=== PATIENT | male | born 1965 | race Caucasian/White ===

== ENCOUNTER 2018-07-21 18:38 | Inpatient (IN) | payer MEDICARE, SELFPAY ==
[2018-07-21] VITALS (14 sets, daily range): BP systolic 78–154; BP diastolic 51–92; PULSE 104–174; RESP 15–24; TEMP 37.3–39.5; O2SAT 90–99; BMI 27.4; BMI 26.4; BMI 26.5
--- NOTE | 2018-07-21 19:09 | RAD_ITS ---
STUDY: X-RAY CHEST REASON FOR EXAM: Male, 53 years old. Sepsis. Fever. TECHNIQUE: Frontal view of the chest COMPARISON: 02/03/2017 FINDINGS: The lungs are clear. There are no pleural effusions. There is no pneumothorax. The heart is normal in size. There are multiple distended loops of bowel in the upper abdomen. There is air superimposed beneath the right hemidiaphragm. It is more likely that this is within a distended bowel lumen rather than free air. However, free air cannot be excluded and further evaluation with CT is recommended. RAD/Chest 1 View (Portable) IMPRESSION: Clear lungs. Multiple distended loops of bowel in the upper abdomen with air superimposed beneath the right hemidiaphragm. It is more likely that this is within a distended bowel lumen rather than free air. The study dated 02/03/2017 had a similar appearance. However, if there is concern for free air, further evaluation with an abdominal CT is recommended. Electronically Signed: Manny Rosas, at 20:32 EST Tel , Service support ,
--- NOTE | 2018-07-21 19:09 | EKG12_ITS ---
Test Reason : GEN ILLNESS Blood Pressure : / mmHG Vent. Rate : 137 BPM Atrial Rate : 137 BPM P-R Int : 138 ms QRS Dur : 076 ms QT Int : 276 ms P-R-T Axes : 029 043 -01 degrees QTc Int : 416 ms Sinus tachycardia Otherwise normal ECG Confirmed by MARLON ONEAL, DEBRA ([id number]), web content editor JEMIMA GLEZ ([id number]) on 07/24/2018 2:32:41 PM Referred By: WENDY Confirmed By:DEBRA MASON MD
[2018-07-21] MEDS: 0.9% Normal Saline 1,000 ML IV.SOLN. 2400 ML IV (19:46)
[2018-07-21] MEDS: Ceftriaxone 1 GM/50 ML BAG IV (19:47)
[2018-07-21 20:04] LABS: International Normalized Ratio 1.1; Partial Thromboplast Time 28.2 Seconds (24.1-36.2); Prothrombin Time (Protime)PT. 14.3 SECONDS (11.7-14.9)
[2018-07-21 20:07] LABS: ALB/GLOB Ratio 0.9 RATIO (0.9-2.4); AST(SGOT) 14 U/L (15-37); Absolute Neutrophil Count 15.4 X10^3/uL (2.0-7.7); Alanine Aminotransfer ALT/SGPT 20 U/L (16-61); Albumin, Serum 3.5 g/dL (3.2-5.0); Alkaline Phosphatase 89 U/L (45-117); Anion Gap 10 (5-15); BUN 42 mg/dL (7-18); BUN/Creat Ratio 15.4 RATIO (10-20); Basophil# 0.01 X10^3/uL; Basophil% 0.1 % (0-1); Calcium,Total 9.5 mg/dL (8.5-10.1); Chloride 106 mmol/L (98-107); Creatinine, Serum 2.72 mg/dL (0.70-1.30); EST Glomerular Filtration Rate 26 mL/min (>60); Est Glom Filt Rate - Afr Amer 32 mL/min (>60); Estimated Creatinine Clearance 28.99 ml/min; Globulin 3.9 g/dL (2.2-4.2); Glucose 76 mg/dL (74-106); Hematocrit 43.5 % (40-54); Hemoglobin 14.4 g/dl (13.0-16.5); Lymphocyte % 7.3 % (19-41); Mean Corp Hgb Conc 33.1 g/gl (32-36); Mean Corpuscular Hgb 29.6 pg (27.0-32.0); Mean Corpuscular Volume 89.5 fL (80-94); Mean Platelet Vol. 10.8 fl (6.2-12.0); Monocyte# 1.07 X10^3/uL; Neutrophil # 15.44 X10^3/uL (2.7-7.7); Neutrophil % 86.5 % (47-70); Platelet Count 228 K/mm3 (150-450); Potassium 4.1 mmol/L (3.5-5.1); Protein, Total 7.4 g/dL (6.4-8.2); RBC Distribution Width CV 13.3 % (11.6-14.6); RBC Distribution Width SD 43.3 fl (35.1-43.9); Red Blood Count 4.86 M/mm3 (4.6-6.2); Sodium Level 139 mmol/L (136-145); White Blood Count 17.8 K/mm3 (4.4-11.0)
[2018-07-21 20:09] LABS: Differential Indicated SCAN CRITERIA MET; POSITIVE COUNT NO; POSITIVE DIFFERENTIAL NO; POSITIVE MORPHOLOGY YES
[2018-07-21 20:23] LABS: Lactic Acid 2.7 mmol/L (0.4-2.0)
[2018-07-21 20:26] LABS: Atypical Lymphocyte RARE %; Differential Comment SCANNED
[2018-07-21 20:51] LABS: Mucous, Urine 0 SEEN /hpf (<or=2+); Squamous Epithelial Cells - UA 0 SEEN /hpf (0-5)
[2018-07-21 20:59] LABS: Color, Urine Yellow (Yellow); Glucose, Dipstick Normal (Normal); Ketone-Dipstick Negative (Negative); Leukocyte Esterase-Dipstick 500 /ul (Negative); Nitrite-Dipstick Negative (Negative); Occult Blood-Urine 150 /ul (Negative); Protein-Dipstick 100 mg/dl (Negative); Specific Gravity, Urine 1.015 (1.002-1.030); Urine Bilirubin Dipstick Negative (Negative); Urine Clarity Cloudy (Clear); Urine Urobilinogen Normal (Normal)
[2018-07-21 21:07] LABS: Bacteria 2+ /hpf (None Seen); Red Blood Cells-Urine 0-5 SEEN /hpf (0-5); White Blood Cells 0-5 SEEN /hpf (0-5)
--- NOTE | 2018-07-21 21:08 | ED.VISSUMM ---
- ER Visit Summary Date of Service: 07/21/18 Chief Complaint: Patient presents from nursing facility because of low blood pressure fever and not doing well History of Present Illness: The patient is a 53 M who has history of neurogenic bladder, MS, suprapubic catheter, sepsis from recurrent urinary tract infection who was brought to the emergency from [facility] because of fever and low blood pressure. When asked questions his only concern is that the TV does not work. When asked why he is here his response was the TV does not work . When asked if he has chest pain or shortness of breath his response was the TV does not work . Patient is not reliable. Physical Examination: Patient is hypotensive with a pressure of 80/51 heart rate of 149 respiration 23 temperature of 99.5. Pulse ox 92% on room air. He smells of urine. HEENT exam is remarkable for poor dentition. Heart is rapid and regular. Lungs are clear to auscultation. Abdomen is soft nontender. He has no skin lesions upper or lower extremities. There is no evidence of decubiti. He moves all his extremities. Test Results: White count 17.8 thousand 86 segs no bands. BUN and creatinine are 42 and 2.72. This indicates acute kidney injury with doubling of his creatinine. Coags normal. Lactate 2.7. Chest x-ray reveals multiple loops of bowel gas which were noted on prior. There is no evidence of free air. There is no lung pathology noted. Emergency Department Course and Treatment: IV was established and he received a 30 cc/kg bolus. Sepsis workup was undertaken. Patient received Rocephin since he has history of recurrent urinary tract infection and he smells of urine. Treatment Plan: Fluid bolus, antibiotics and admission to the hospital Disposition: Serious to critical Impression: 1. Severe sepsis 2. Hypotension fluid responsive 3. Acute kidney injury 4. Lactic acidosis 5. Urinary tract infection 6. History of MS 7. History of diabetes 8. History of neurogenic bladder with suprapubic catheter This note was generated with [employer] dictation software. It may contain incorrect words, spelling, and punctuation that were not noted in review of the chart prior to signing ED Disposition - Plan for ED Patient: Chief Complaint: General Illness Referrals: Michael Echavarria MD [Primary Care Provider] -
--- NOTE | 2018-07-21 21:37 | PCM.HP.STD ---
Problem List (1) Sepsis Status: Acute Qualifiers: Sepsis type: sepsis due to unspecified organism Qualified Code(s): A41.9 - Sepsis, unspecified organism History of Present Illness Date of Admission: 07/21/18 Chief Complaint: fever at alf The patient is a 53 year old M with a significant history of diabetes mellitus; multiple sclerosis; suprapubic catheter; UTI with multiple episodes of sepsis secondary to cystitis; and neurogenic bladder who was sent from the [facility] because of fever. At emergency department his blood pressure was initially low with a systolic of 78-80. However patient responded appropriately to IV normal saline bolus. Patient had tachycardia with heart rate of 120 which later increased to 140 while patient was admitted to the ICU. Patient had leukocytosis of 17.8. His creatinine was severely elevated as a 2.72 and his lactic acid was elevated at 2.7. Patient was found to have an abnormal urinalysis. Patient was diagnosed with severe sepsis. Blood cultures x2 and urine culture were ordered from the ED. Patient received broad-spectrum antibiotics and was sent to the intensive care unit. While in the intensive care unit patient was noted to spike a temperature of 103.1 Past Medical History Past Medical History (Chronic Problems): Chronic Problems Neurogenic bladder (Chronic) status post suprapubic catheter Depression (Chronic) Anxiety (Chronic) Vitamin D deficiency (Chronic) GERD (gastroesophageal reflux disease) (Chronic) DM type 1 (diabetes mellitus, type 1) (Chronic) Multiple sclerosis (Chronic) Allergies Penicillins Adverse Reaction (Verified 05/16/16 16:03) Unknown Home Medications: Ambulatory Orders Medication Instructions Recorded Ascorbic Acid [Vitamin C] 500 mg PO DAILY@0800 05/30/15 Atorvastatin Calcium [Lipitor] 10 mg PO QHS 05/30/15 Calcitriol [Rocaltrol] 0.25 mcg PO MOWEFR 05/30/15 Calcium Carbonate/Vitamin D3 1 each PO BID 05/30/15 [Calcium 600 + D Tablet] Glucagon,Human Recombinant 1 mg IM DAILY PRN PRN 05/30/15 [Glucagen] Magnesium Hydroxide [Milk Of 30 ml PO DAILY PRN PRN 05/30/15 Magnesia] Nitroglycerin [Nitrostat] 0.4 mg SUBLINGUAL Q5M PRN 05/30/15 Docusate Sodium [Colace] 100 mg PO BID 04/21/16 Guaifenesin [Diabetic Tussin Ex] 100 mg PO Q4H PRN PRN 04/21/16 Insulin Aspart [Novolog Flexpen] See Protocol SC PRN PRN 05/17/16 Insulin Aspart [Novolog Flexpen] See Protocol SC TIDCM 05/17/16 Acetic Acid 30 ml IR BID 02/03/17 Bisacodyl 10 mg RC PRN PRN 02/03/17 Dextrose [Glucose Gel] 15 gm PO PRN PRN 02/03/17 Insulin Detemir [Levemir] 25 unit SQ DAILY 02/03/17 Lisinopril [Zestril] 2.5 mg PO DAILY 02/03/17 Mag Hydrox/Aluminum Hyd/Simeth 30 ml PO Q6H PRN PRN 02/03/17 [Antacid Suspension] Metoclopramide [Reglan] 10 mg PO TIDCM 02/03/17 Multivitamin [Multiple Vitamins] 1 each PO DAILY 02/03/17 Sennosides/Docusate Sodium [Senna 1 each PO BID PRN 02/03/17 Plus Tablet] SimETHICONE [Mylicon] 80 mg PO TIDCM 02/03/17 Acetaminophen [Tylenol] 650 mg PO Q4H PRN PRN 07/22/18 Surgical History: - - Suprapubic urinary catheter Psychiatric History: No pertinent psych hx Lives: [facility] Smoking Status: Never smoker - *Family History Maternal History Items: - - No history of multiple sclerosis Paternal History Items: - - Patient has confusion; likely baseline and family history could not be obtained from him. Review of Systems Unable to obtain accurate/complete ROS d/t: poor cognitive function VTE Information - Inpt Only VTE Present on Admission: No VTE Mechan Device Prophylaxis: None VTE Pharm Prophylaxis ordered?: Yes - Physical Exam General: Alert, Confused - Baseline HEENT: Atraumatic, PERRLA, EOMI, Normocephalic Neck: Supple, No JVD, Negative Carotid Bruits Lungs: Rhonchi Cardiovascular: No murmurs, Tachycardic Abdomen: Non Tender, Hypoactive Bowel Sounds, Distended Extremities: No edema, Capillary Refill Less than 3 Seconds, Cool - Right leg Skin: No rashes, No breakdown Musculoskeletal: No Tenderness to Palpation of Joints or Extremities Neurological: - - Alert. Follow commands. But with baseline cognitive deficits Psych/Mental Status: Normal Affect, Appropriate Vital Signs Temp Pulse Resp BP Pulse Ox 99.4 F H 114 H 18 108/80 94 07/21/18 21:08 07/21/18 21:08 07/21/18 21:08 07/21/18 21:08 07/21/18 21:08 Oxygen Flow Rate (L/min) 2 Oxygen Delivery Method Room Air Weight: 77.111 kg Body Mass Index (BMI) 27.4 Laboratory Tests Past 24 Hrs 07/21/18 07/21/18 07/21/18 18:55 18:55 18:55 WBC 17.8 H RBC 4.86 Hgb 14.4 Hct 43.5 MCV 89.5 MCH 29.6 MCHC 33.1 RDW 13.3 RDW Differential 43.3 Plt Count 228 MPV 10.8 Immature Gran % (Auto) 0.100 Neut % (Auto) 86.5 H Lymph % (Auto) 7.3 L [place] % (Auto) 6.0 Eos % (Auto) 0.0 Baso % (Auto) 0.1 Absolute Neuts (auto) 15.4 H Absolute Lymphs (auto) 1.30 Total Counted Not Reportable Differential Comment SCANNED Atypical Lymphocytes RARE PT 14.3 INR 1.1 APTT 28.2 Sodium 139 Potassium 4.1 Chloride 106 Carbon Dioxide 23.0 Anion Gap 10 BUN 42 H Creatinine 2.72 H Estim Creat Clear Calc 28.99 Est GFR (MDRD) Af Amer 32 L Est GFR (MDRD) Non-Af 26 L BUN/Creatinine Ratio 15.4 Glucose 76 Lactic Acid Calcium 9.5 Total Bilirubin 0.60 AST 14 L ALT 20 Alkaline Phosphatase 89 Total Protein 7.4 Albumin 3.5 Globulin 3.9 Albumin/Globulin Ratio 0.9 Urine Color Urine Clarity Urine pH Ur Specific [place] Urine Protein Urine Glucose (UA) Urine Ketones Urine Occult Blood Urine Nitrite Urine Bilirubin Urine Urobilinogen Ur Leukocyte Esterase Urine RBC Urine WBC Ur Squamous Epith Cells Urine Bacteria Urine Mucus 07/21/18 07/21/18 18:55 20:46 WBC RBC Hgb Hct MCV MCH MCHC RDW RDW Differential Plt Count MPV Immature Gran % (Auto) Neut % (Auto) Lymph % (Auto) [place] % (Auto) Eos % (Auto) Baso % (Auto) Absolute Neuts (auto) Absolute Lymphs (auto) Total Counted Differential Comment Atypical Lymphocytes PT INR APTT Sodium Potassium Chloride Carbon Dioxide Anion Gap BUN Creatinine Estim Creat Clear Calc Est GFR (MDRD) Af Amer Est GFR (MDRD) Non-Af BUN/Creatinine Ratio Glucose Lactic Acid 2.7 H Calcium Total Bilirubin AST ALT Alkaline Phosphatase Total Protein Albumin Globulin Albumin/Globulin Ratio Urine Color Yellow Urine Clarity Cloudy Urine pH 8.0 Ur Specific [place] 1.015 Urine Protein 100 H Urine Glucose (UA) Normal Urine Ketones Negative Urine Occult Blood 150 H Urine Nitrite Negative Urine Bilirubin Negative Urine Urobilinogen Normal Ur Leukocyte Esterase 500 H Urine RBC 0-5 SEEN Urine WBC 0-5 SEEN Ur Squamous Epith Cells 0 SEEN Urine Bacteria 2+ Urine Mucus 0 SEEN Assessment/Plan All Active Problems Sepsis (Acute) UTI (urinary tract infection) due to urinary indwelling catheter (Acute) Colon obstruction (Resolved) The patient is a 53 year old M with a significant history of diabetes mellitus; multiple sclerosis; suprapubic catheter; UTI with multiple episodes of sepsis secondary to cystitis; neurogenic bladder who was sent from the retirement because of fever and found to be hypotensive; and with a tachycardia; elevated creatinine leukocytosis and abnormal urinalysis consistent with severe sepsis secondary to cystitis secondary to suprapubic catheter. Severe sepsis secondary to acute cystitis secondary to suprapubic catheter. With fever of 103.1. Leukocytosis of 17.8; tachycardia with heart rate in the 140s patient meets SIRS criteria. With abnormal urinalysis and suprapubic catheter probable source of sepsis is cystitis. Patient has an organ damage of elevated lactic acid and acute kidney injury made to the criteria for severe sepsis. Patient received normal saline IV bolus at emergency department. Maintenance IV normal saline was continued as patient continued to have sinus tachycardia. We will continue to trend lactic acid. Continue broad-spectrum antibiotics of Ceftriaxone CT scan of his abdomen showed multiple distended loops of bowel in the upper abdomen with S superimposed beneath the right hemidiaphragm. Per radiologist is more likely that this is within a distended bowel movement rather than free air. Importantly this data was not different from the study on 02/03/2017. If patient decompensate will consider abdominal CT. ANTONY On admission his creatinine was 2.72. Review of records show that his baseline creatinine is around 1.20. BUN/creatinine is 15.4. Likely intrinsic renal failure from sepsis. Avoid nephrotoxic's. Gentle IV hydration. Lisinopril held. Trend blood pressures. Trend BMP. Diabetes mellitus On admission his blood glucose on BMP was 76. Will hold home insulin at this time. Accu-Chek QACHS and 2 AM Hypoglycemia protocol ordered. Chest congestion On examination patient significant rhonchi Chest physiotherapy ordered DVT prophylaxis Subcutaneous heparin Code Visit Inpatient E&M: 29453 Init Hosp L3
--- NOTE | 2018-07-21 21:46 | ED.RN ---
[facility] CALLED FOR PT MEDICATION LIST. THEY WILL FAX IT TO THE ER. THEY WERE INFORMED OF OUR INTENTIONS TO ADMIT. [facility] CALLED TO NOTIFY OF PT CONDITION, BUT HUNG UP THE PHONE SHORTLY AFTER ANSWERING. Waleska MILTON RN [id number]
[2018-07-21 23:51] LABS: Reflex Lactate? Y
--- NOTE | 2018-07-21 23:56 | EKG12_ITS ---
Test Reason : SVT Blood Pressure : / mmHG Vent. Rate : 159 BPM Atrial Rate : 159 BPM P-R Int : 104 ms QRS Dur : 066 ms QT Int : 310 ms P-R-T Axes : 000 030 043 degrees QTc Int : 504 ms Sinus tachycardia Nonspecific T wave abnormality Abnormal ECG Confirmed by MARLON ONEAL, DEBRA ([id number]), television news video editor JEMIMA GLEZ ([id number]) on 07/26/2018 3:20:01 PM Referred By: TYSON Confirmed By:DEBRA MASON MD
[2018-07-22] VITALS (21 sets, daily range): BP systolic 93–143; BP diastolic 54–100; PULSE 86–148; RESP 12–24; TEMP 36.7–40.1; O2SAT 93–100
[2018-07-22] MEDS: 0.9% Normal Saline 1,000 ML 100 ML IV (00:27)
[2018-07-22] MEDS: Acetaminophen 325 MG Tablet 650 MG PO ×2 (00:40→05:54)
[2018-07-22] MEDS: 0.9% Normal Saline 1,000 ML 150 ML IV ×3 (01:46→14:39)
[2018-07-22 01:50] LABS: Lactic Acid 1.4 mmol/L (0.4-2.0)
[2018-07-22] MEDS: 0.9% NaCl Peripheral Flush Adult/Peds IV (03:57)
[2018-07-22 04:09] LABS: Hematocrit 40.9 % (40-54); Hemoglobin 13.1 g/dl (13.0-16.5); Mean Corpuscular Hgb 29.4 pg (27.0-32.0); Mean Corpuscular Volume 91.7 fL (80-94); Mean Platelet Vol. 10.3 fl (6.2-12.0); Platelet Count 168 K/mm3 (150-450); RBC Distribution Width CV 13.5 % (11.6-14.6); RBC Distribution Width SD 44.5 fl (35.1-43.9); Red Blood Count 4.46 M/mm3 (4.6-6.2); White Blood Count 21.1 K/mm3 (4.4-11.0)
[2018-07-22 04:19] LABS: Scan Indicated on CBC? Y/N NO
[2018-07-22 04:44] LABS: Anion Gap 10 (5-15); BUN 48 mg/dL (7-18); Calcium,Total 8.3 mg/dL (8.5-10.1); Chloride 110 mmol/L (98-107); EST Glomerular Filtration Rate 24 mL/min (>60); Est Glom Filt Rate - Afr Amer 29 mL/min (>60); Estimated Creatinine Clearance 28.18 ml/min; Glucose 118 mg/dL (74-106); Potassium 4.9 mmol/L (3.5-5.1); Sodium Level 141 mmol/L (136-145)
[2018-07-22] MEDS: Heparin Injection (Vial) 5,000 UNIT/ML VIAL 5000 UNIT SC ×3 (05:42→21:36)
[2018-07-22 06:57] LABS: Bedside Glucose 142 mg/dL (70-110)
--- NOTE | 2018-07-22 07:20 | PCM.CON.CC ---
Reason for Consult Date of Consultation: 07/22/18 Reason for Consultation: Severe sepsis History of Present Illness: The patient is a 53-year-old male, with a history as outlined below, who presented to the emergency department on July 21 from his group home facility with fever, generalized malaise and hypotension. The patient has underlying MS with neurogenic bladder and has a chronic suprapubic catheter in place. On presentation to the emergency department, the patient was noted initially to be afebrile, tachycardic and hypotensive. He was maintaining appropriate oxygen saturations on room air. Laboratory evaluation revealed elevated white blood cell count to 18,000. There was evidence of acute kidney injury with a creatinine of 2.72. Serum lactate was elevated to 2.7. Urinalysis revealed an elevated leukocyte esterase and 2+ bacteria. Plain film chest x-ray showed no acute cardiopulmonary process with multiple distended loops of bowel in the upper abdomen. The patient received supplemental IV fluids and was started on antibiotics. He was subsequently transferred to the medical intensive care unit for ongoing management. Of note, the patient's CODE STATUS was confirmed to be DNR CCA. Past Medical History Past Medical History (Chronic Problems): Chronic Problems Neurogenic bladder (Chronic) status post suprapubic catheter Depression (Chronic) Anxiety (Chronic) Vitamin D deficiency (Chronic) GERD (gastroesophageal reflux disease) (Chronic) DM type 1 (diabetes mellitus, type 1) (Chronic) Multiple sclerosis (Chronic) Allergies Penicillins Adverse Reaction (Verified 05/16/16 16:03) Unknown Home Medications: Ambulatory Orders Medication Instructions Recorded Ascorbic Acid [Vitamin C] 500 mg PO DAILY@0800 05/30/15 Atorvastatin Calcium [Lipitor] 10 mg PO QHS 05/30/15 Calcitriol [Rocaltrol] 0.25 mcg PO MOWEFR 05/30/15 Calcium Carbonate/Vitamin D3 1 each PO BID 05/30/15 [Calcium 600 + D Tablet] Glucagon,Human Recombinant 1 mg IM DAILY PRN PRN 05/30/15 [Glucagen] Magnesium Hydroxide [Milk Of 30 ml PO DAILY PRN PRN 05/30/15 Magnesia] Nitroglycerin [Nitrostat] 0.4 mg SUBLINGUAL Q5M PRN 05/30/15 Docusate Sodium [Colace] 100 mg PO BID 04/21/16 Guaifenesin [Diabetic Tussin Ex] 100 mg PO Q4H PRN PRN 04/21/16 Insulin Aspart [Novolog Flexpen] See Protocol SC PRN PRN 05/17/16 Insulin Aspart [Novolog Flexpen] See Protocol SC TIDCM 05/17/16 Acetic Acid 30 ml IR BID 02/03/17 Bisacodyl 10 mg RC PRN PRN 02/03/17 Dextrose [Glucose Gel] 15 gm PO PRN PRN 02/03/17 Insulin Detemir [Levemir] 25 unit SQ DAILY 02/03/17 Lisinopril [Zestril] 2.5 mg PO DAILY 02/03/17 Mag Hydrox/Aluminum Hyd/Simeth 30 ml PO Q6H PRN PRN 02/03/17 [Antacid Suspension] Metoclopramide [Reglan] 10 mg PO TIDCM 02/03/17 Multivitamin [Multiple Vitamins] 1 each PO DAILY 02/03/17 Sennosides/Docusate Sodium [Senna 1 each PO BID PRN 02/03/17 Plus Tablet] SimETHICONE [Mylicon] 80 mg PO TIDCM 02/03/17 Acetaminophen [Tylenol] 650 mg PO Q4H PRN PRN 07/22/18 Surgical History: - - Suprapubic urinary catheter Psychiatric History: No pertinent psych hx Lives: [facility] Smoking Status: Never smoker Tobacco Use: Non-smoker - *Family History Maternal History Items: - - No history of multiple sclerosis Paternal History Items: - - Patient has confusion; likely baseline and family history could not be obtained from him. Review of Systems Constitutional: Reports: Malaise Eyes: Denies: Blurred vision, Double vision HEENT: Denies: Head Aches, Sinus Congestion, Sinus Drainage Cardiovascular: Denies: Chest Pain, Palpitations Respiratory: Denies: Cough, Shortness of breath at rest, Sputum production Gastrointestinal: Denies: Abdominal Pain, Nausea, Vomiting Genitourinary: Reports: Retention Musculoskeletal: Denies: Joint Pain, Joint Tenderness Skin: Denies: Rash, Wounds Neurological: Denies: Numbness, Tingling, Focal weakness Psychiatric: Denies: Anxiety, Depression, Homicidal Ideations, Suicidal Ideations Hematologic/ Lymphatic: Denies: Easy Bruising, Easy Bleeding Objective: The patient's most recent lab work, culture data and imaging studies have all been personally reviewed. - Physical Exam General: Alert, Cooperative, No apparent distress HEENT: Atraumatic, PERRLA, Normocephalic Oral: Dry Mucosa Neck: Supple, No Nodes, Trachea Midline Lungs: No rhonchi, No wheeze, No rales, Diminished Cardiovascular: Normal S1, Normal S2, No murmurs, Tachycardic Abdomen: Bowel Sounds Present, Soft, Non Tender, Distended Extremities: No clubbing, No cyanosis, No edema Skin: No breakdown Musculoskeletal: No Tenderness to Palpation of Joints or Extremities Lymphatic: No Cervical, Supraclavicular, or Inguinal Adenopathy Neurological: Neuro grossly intact Psych/Mental Status: Normal Affect, Appropriate Vital Signs Temp Pulse Resp BP Pulse Ox 39.3 C H 116 H 18 93/62 100 07/22/18 07:00 07/22/18 07:00 07/22/18 07:00 07/22/18 07:00 07/22/18 07:00 Oxygen Flow Rate (L/min) 4 Oxygen Delivery Method Nasal Cannula Weight: 174 lb 2.643 oz Body Mass Index (BMI) 26.4 Intake and Output for Last 24 Hours 07/20/18 07/21/18 07/22/18 23:59 23:59 23:59 Intake Total 1629 / 1629 Output Total 50 / 50 Balance 1579 / 1579 Laboratory Tests Past 24 Hrs 07/21/18 07/21/18 07/21/18 18:55 18:55 18:55 WBC 17.8 H RBC 4.86 Hgb 14.4 Hct 43.5 MCV 89.5 MCH 29.6 MCHC 33.1 RDW 13.3 RDW Differential 43.3 Plt Count 228 MPV 10.8 Immature Gran % (Auto) 0.100 Neut % (Auto) 86.5 H Lymph % (Auto) 7.3 L [place] % (Auto) 6.0 Eos % (Auto) 0.0 Baso % (Auto) 0.1 Absolute Neuts (auto) 15.4 H Absolute Lymphs (auto) 1.30 Total Counted Not Reportable Differential Comment SCANNED Atypical Lymphocytes RARE PT 14.3 INR 1.1 APTT 28.2 Sodium 139 Potassium 4.1 Chloride 106 Carbon Dioxide 23.0 Anion Gap 10 BUN 42 H Creatinine 2.72 H Estim Creat Clear Calc 28.99 Est GFR (MDRD) Af Amer 32 L Est GFR (MDRD) Non-Af 26 L BUN/Creatinine Ratio 15.4 Glucose 76 Lactic Acid Calcium 9.5 Total Bilirubin 0.60 AST 14 L ALT 20 Alkaline Phosphatase 89 Total Protein 7.4 Albumin 3.5 Globulin 3.9 Albumin/Globulin Ratio 0.9 Urine Color Urine Clarity Urine pH Ur Specific [place] Urine Protein Urine Glucose (UA) Urine Ketones Urine Occult Blood Urine Nitrite Urine Bilirubin Urine Urobilinogen Ur Leukocyte Esterase Urine RBC Urine WBC Ur Squamous Epith Cells Urine Bacteria Urine Mucus 07/21/18 07/21/18 07/21/18 18:55 20:46 22:23 WBC RBC Hgb Hct MCV MCH MCHC RDW RDW Differential Plt Count MPV Immature Gran % (Auto) Neut % (Auto) Lymph % (Auto) [place] % (Auto) Eos % (Auto) Baso % (Auto) Absolute Neuts (auto) Absolute Lymphs (auto) Total Counted Differential Comment Atypical Lymphocytes PT INR APTT Sodium Potassium Chloride Carbon Dioxide Anion Gap BUN Creatinine Estim Creat Clear Calc Est GFR (MDRD) Af Amer Est GFR (MDRD) Non-Af BUN/Creatinine Ratio Glucose Lactic Acid 2.7 H 1.4 Calcium Total Bilirubin AST ALT Alkaline Phosphatase Total Protein Albumin Globulin Albumin/Globulin Ratio Urine Color Yellow Urine Clarity Cloudy Urine pH 8.0 Ur Specific [place] 1.015 Urine Protein 100 H Urine Glucose (UA) Normal Urine Ketones Negative Urine Occult Blood 150 H Urine Nitrite Negative Urine Bilirubin Negative Urine Urobilinogen Normal Ur Leukocyte Esterase 500 H Urine RBC 0-5 SEEN Urine WBC 0-5 SEEN Ur Squamous Epith Cells 0 SEEN Urine Bacteria 2+ Urine Mucus 0 SEEN 07/22/18 07/22/18 04:00 04:00 WBC 21.1 H RBC 4.46 L Hgb 13.1 Hct 40.9 MCV 91.7 MCH 29.4 MCHC 32.0 RDW 13.5 RDW Differential 44.5 H Plt Count 168 MPV 10.3 Immature Gran % (Auto) Neut % (Auto) Lymph % (Auto) [place] % (Auto) Eos % (Auto) Baso % (Auto) Absolute Neuts (auto) Absolute Lymphs (auto) Total Counted Differential Comment Atypical Lymphocytes PT INR APTT Sodium 141 Potassium 4.9 Chloride 110 H Carbon Dioxide 21.0 Anion Gap 10 BUN 48 H Creatinine 3.00 H Estim Creat Clear Calc 28.18 Est GFR (MDRD) Af Amer 29 L Est GFR (MDRD) Non-Af 24 L BUN/Creatinine Ratio 16.0 Glucose 118 H Lactic Acid Calcium 8.3 L Total Bilirubin AST ALT Alkaline Phosphatase Total Protein Albumin Globulin Albumin/Globulin Ratio Urine Color Urine Clarity Urine pH Ur Specific [place] Urine Protein Urine Glucose (UA) Urine Ketones Urine Occult Blood Urine Nitrite Urine Bilirubin Urine Urobilinogen Ur Leukocyte Esterase Urine RBC Urine WBC Ur Squamous Epith Cells Urine Bacteria Urine Mucus POC Glucose 07/22/18 06:49 POC Glucose 142 H Clinical Impression(s) from Imaging Studies Chest X-Ray 07/21/18 19:09 IMPRESSION: Clear lungs. Multiple distended loops of bowel in the upper abdomen with air superimposed beneath the right hemidiaphragm. It is more likely that this is within a distended bowel lumen rather than free air. The study dated 02/03/2017 had a similar appearance. However, if there is concern for free air, further evaluation with an abdominal CT is recommended. Electronically Signed: Manny Alison, at 20:32 EST Tel , Service support , Assessment/Plan RECOMMENDATIONS: 1. Continue antibiotics, pending infectious workup. 2. Discontinue use of continuous supplemental IV fluids 3. Advance diet 4. Start baseline insulin regimen and Accu-Cheks. IMPRESSIONS: 1. Severe sepsis secondary to cystitis/neurogenic bladder The patient has been adequately volume resuscitated at this time. Continue with supplemental IV fluids can be discontinued. The patients hemodynamics responded favorably to volume expansion. Continue antibiotics as ordered. Consultation placed to urology to assist with leaking suprapubic catheter. Okay to advance diet from my perspective. 2. Acute kidney injury Likely prerenal in etiology, compounded by the overzealous use of normal saline for volume expansion. Discontinue supplemental IV fluids. Change suprapubic catheter as noted above. Continue to monitor urine output. No current indication for renal replacement therapy. Renal ultrasound is currently pending. 3. Baseline MS/neurogenic bladder/diabetes/hypertension Complicates care, management, recovery and prognosis. Start Accu-Cheks and baseline insulin regimen. Continue to hold antihypertensives for now. This note was generated with [employer] software. It may contain incorrect words, spelling, and punctuation that were not noted in checking the note before signing. DISPOSITION: The patient is medically stable for transfer out of the intensive care unit. Given the patient's lack of further ICU needs, will sign off. Please call with any additional questions. Code Visit Inpatient E&M: 25494 Init Hosp L3
[2018-07-22] MEDS: Metoclopramide 10 MG Tablet PO ×3 (08:06→17:22)
--- NOTE | 2018-07-22 09:17 | PCM.PN.HOSP ---
Subjective: Patient seen and examined. He was admitted overnight with a complaint of fever which peaked at 103.5 Fahrenheit overnight he also tested leukocytosis. He also had elevated creatinine and lactic acid was elevated. UA was indicated of UTI he was admitted initially managed for severe sepsis due to UTI. Patient remains febrile me that he has cooling blankets on. Temperature this morning was 102.7 Fahrenheit. Hhe is alert and denies any chills, cough or chest pain, shortness of breath, abdominal pain, diarrhea vomiting. Suprapubic catheter noted to be leaking around the catheter. white cell count trended up to 21 this morning. Labs and vitals reviewed. Vitals/I&O's: Vital Signs Temp Pulse Resp BP Pulse Ox 102.7 F H 116 H 18 93/62 98 07/22/18 07:00 07/22/18 07:00 07/22/18 07:00 07/22/18 07:00 07/22/18 08:02 Oxygen Flow Rate (L/min) 4 Oxygen Delivery Method Nasal Cannula Weight: 174 lb 2.643 oz Body Mass Index (BMI) 26.4 Intake and Output for Last 24 Hours 07/20/18 07/21/18 07/22/18 23:59 23:59 23:59 Intake Total 1629 / 1629 Output Total 50 / 50 Balance 1579 / 1579 General: Alert, Oriented x3, Cooperative, No apparent distress HEENT: Atraumatic, PERRLA, EOMI, Normocephalic Oral: Dry Mucosa Neck: Supple, No JVD, Negative Carotid Bruits, Negative Hepatojugular Reflux, No Nodes Lungs: Clear to auscultation, Normal air movement, No rhonchi, No wheeze Cardiovascular: Regular Rhythm, Normal S1, Normal S2, No murmurs, Tachycardic Abdomen: Bowel Sounds Present, Soft, Non Tender, Distended - With mildly reduced bowel sounds. Extremities: No clubbing, No cyanosis, No edema, Capillary Refill Less than 3 Seconds Skin: No rashes, No breakdown Musculoskeletal: No Tenderness to Palpation of Joints or Extremities Lymphatic: No Cervical, Supraclavicular, or Inguinal Adenopathy Neurological: Cranial nerves II-XII grossly intact, Neuro grossly intact, Motor Exam 5/5 strength throughout Psych/Mental Status: Normal Affect, Appropriate, Alert and oriented to time, place, person, mood and affect Laboratory Results 07/21/18 18:55: WBC 17.8 H, RBC 4.86, Hgb 14.4, Hct 43.5, MCV 89.5, MCH 29.6, MCHC 33.1, RDW 13.3, RDW Differential 43.3, Plt Count 228, MPV 10.8, Immature Gran % (Auto) 0.100, Neut % (Auto) 86.5 H, Lymph % (Auto) 7.3 L, [place] % (Auto) 6.0, Eos % (Auto) 0.0, Baso % (Auto) 0.1, Absolute Neuts (auto) 15.4 H, Absolute Lymphs (auto) 1.30, Total Counted Not Reportable, Differential Comment SCANNED, Atypical Lymphocytes RARE 07/21/18 18:55: PT 14.3, INR 1.1, APTT 28.2 07/21/18 18:55: Sodium 139, Potassium 4.1, Chloride 106, Carbon Dioxide 23.0, Anion Gap 10, BUN 42 H, Creatinine 2.72 H, Estim Creat Clear Calc 28.99, Est GFR (MDRD) Af Amer 32 L, Est GFR (MDRD) Non-Af 26 L, BUN/Creatinine Ratio 15.4, Glucose 76, Calcium 9.5, Total Bilirubin 0.60, AST 14 L, ALT 20, Alkaline Phosphatase 89, Total Protein 7.4, Albumin 3.5, Globulin 3.9, Albumin/Globulin Ratio 0.9 07/21/18 18:55: Lactic Acid 2.7 H 07/21/18 20:46: Urine Color Yellow, Urine Clarity Cloudy, Urine pH 8.0, Ur Specific [place] 1.015, Urine Protein 100 H, Urine Glucose (UA) Normal, Urine Ketones Negative, Urine Occult Blood 150 H, Urine Nitrite Negative, Urine Bilirubin Negative, Urine Urobilinogen Normal, Ur Leukocyte Esterase 500 H, Urine RBC 0-5 SEEN, Urine WBC 0-5 SEEN, Ur Squamous Epith Cells 0 SEEN, Urine Bacteria 2+, Urine Mucus 0 SEEN 07/21/18 22:23: Lactic Acid 1.4 07/22/18 04:00: WBC 21.1 H, RBC 4.46 L, Hgb 13.1, Hct 40.9, MCV 91.7, MCH 29.4, MCHC 32.0, RDW 13.5, RDW Differential 44.5 H, Plt Count 168, MPV 10.3 07/22/18 04:00: Sodium 141, Potassium 4.9, Chloride 110 H, Carbon Dioxide 21.0, Anion Gap 10, BUN 48 H, Creatinine 3.00 H, Estim Creat Clear Calc 28.18, Est GFR (MDRD) Af Amer 29 L, Est GFR (MDRD) Non-Af 24 L, BUN/Creatinine Ratio 16.0, Glucose 118 H, Calcium 8.3 L 07/22/18 06:49: POC Glucose 142 H Diagnostic Data Chest X-Ray 07/21/18 19:09 IMPRESSION: Clear lungs. Multiple distended loops of bowel in the upper abdomen with air superimposed beneath the right hemidiaphragm. It is more likely that this is within a distended bowel lumen rather than free air. The study dated 02/03/2017 had a similar appearance. However, if there is concern for free air, further evaluation with an abdominal CT is recommended. Electronically Signed: Manny Alison, at 20:32 EST Tel , Service support , Current Medications Acetaminophen (Tylenol) 650 mg PO Q6H PRN PRN PRN Reason: FEVER Last Admin: 07/22/18 05:54 Dose: 650 mg Acetic Acid (Acetic Acid) 30 ml IR BID HAILEY Al Hydroxide/Mg Hydroxide (Mylanta Ii) 30 ml PO Q6H PRN PRN PRN Reason: INDIGESTION Ascorbic Acid (Vitamin C) 500 mg PO DAILY@0800 [facility] Atorvastatin Calcium (Lipitor) 10 mg PO QHS HAILEY Bisacodyl (Dulcolax) 10 mg RECTAL DAILY PRN PRN PRN Reason: Constipation Calcitriol (Rocaltrol) 0.25 mcg PO MoWeFr@1000 [facility] Calcium/Vitamin D (Os-Phillip 500mg + D) 1 tablet PO BID HAILEY Dextrose (D50w Syringe) 0 gm IV X1 PRN; Protocol PRN Reason: Hypoglycemia Docusate Sodium (Colace) 100 mg PO BID HAILEY Glucagon () 1 mg IM .X1 PRN PRN Reason: Hypoglycemia Guaifenesin (Robitussin) 5 ml PO Q4H PRN PRN PRN Reason: COUGH Heparin Sodium (Porcine) (Heparin Na) 5,000 unit SC Q8 [facility] Last Admin: 07/22/18 05:42 Dose: 5,000 unit Ceftriaxone Sodium (Rocephin) 1 gm in 50 mls @ 100 mls/hr IV Q24@2200 [facility] Sodium Chloride () 250 mls @ 15 mls/hr IV .[id number] PRN PRN Reason: SALINE FLUSH Sodium Chloride () 1,000 mls @ 150 mls/hr IV .Q6H40M [facility] Stop: 07/22/18 13:14 Last Admin: 07/22/18 08:05 Dose: 150 mls/hr Magnesium Hydroxide (Milk Of Magnesia) 30 ml PO DAILY PRN PRN PRN Reason: Constipation Metoclopramide HCl (Reglan) 10 mg PO TIDCM [facility] Last Admin: 07/22/18 08:06 Dose: 10 mg Multivitamins (Multivitamin) [facility] Senna/Docusate Sodium (Senokot-S, Rosalina-Colace) 1 tablet PO BID PRN PRN PRN Reason: Constipation Simethicone (Mylicon) 80 mg PO TIDCM [facility] Last Admin: 07/22/18 08:06 Dose: 80 mg Sodium Chloride () 5 - 15 ml IV UD PRN PRN Reason: SALINE FLUSH Last Admin: 07/22/18 03:57 Dose: 10 ml Medical Necessity - Tobacco Use Smoking Status: Never smoker Tobacco Use: Non-smoker Assessment/Plan All Active Problems Sepsis (Acute) UTI (urinary tract infection) due to urinary indwelling catheter (Acute) Colon obstruction (Resolved) 1. Severe sepsis due to acute cystitis still remains febrile, leucocytosis trended up to 21, from 17 on admission temperature peaked at 102.7 Fahrenheit this morning lactic acid trended down on IVF NS on IV ceftriaxone. If temperature and white cell count dont trend down, will consider broadening antibiotic coverage blood and urine cultures pending 2. ANTONY: Cr trended up from 2.72 to 3. On IVF. Likely prerenal due to decreased perfusion as lactic acid was also elevated on admission. will check urine electrolytes and kidney and bladder USG continue IVF and trend BMP 3. Diabetes mellitus will resume home insulin dose-25 units daily ISS. Accuchecks ACHS 4. Neurogenic bladder s/p suprapubic catheter placement Catheter is leaking around site of insertion. Has mild erythema around site of insertion. Consult urology for change of catheter as he likely will need a bigger size. 5. Multiple sclerosis: Able 6. Hypertension: On lisinopril. Lisinopril on hold on account of [place] I. IV hydralazine as needed 7. Abdominal distention cardiac ileus: At time of review, patient's abdomen was distended and spent admitted to percussion. He denied positive gas having bowel movements. Plan was to get abdominal x-ray series. However after review, patient had a large soft bowel movement. We will therefore hold off on abdominal x-rays now, and monitor.,\ DVT prophylaxis: heparin Code Visit Inpatient E&M: 26986 Subs Hosp L3
[2018-07-22 09:26] LABS: Bedside Glucose 171 mg/dL (70-110)
--- NOTE | 2018-07-22 09:29 | PN_ITS ---
Subjective: Patient seen and examined. He was admitted overnight with a complaint of fever which peaked at 103.5 Fahrenheit overnight he also tested leukocytosis. He also had elevated creatinine and lactic acid was elevated. UA was indicated of UTI he was admitted initially managed for severe sepsis due to UTI. Patient remains febrile me that he has cooling blankets on. Temperature this morning was 102.7 Fahrenheit. Hhe is alert and denies any chills, cough or chest pain, shortness of breath, abdominal pain, diarrhea vomiting. Suprapubic catheter noted to be leaking around the catheter. white cell count trended up to 21 this morning. Labs and vitals reviewed. Vitals/I&O's: Vital Signs Temp Pulse Resp BP Pulse Ox 102.7 F H 116 H 18 93/62 98 07/22/18 07:00 07/22/18 07:00 07/22/18 07:00 07/22/18 07:00 07/22/18 08:02 Oxygen Flow Rate (L/min) 4 Oxygen Delivery Method Nasal Cannula Weight: 174 lb 2.643 oz Body Mass Index (BMI) 26.4 Intake and Output for Last 24 Hours 07/20/18 07/21/18 07/22/18 23:59 23:59 23:59 Intake Total 1629 / 1629 Output Total 50 / 50 Balance 1579 / 1579 General: Alert, Oriented x3, Cooperative, No apparent distress HEENT: Atraumatic, PERRLA, EOMI, Normocephalic Oral: Dry Mucosa Neck: Supple, No JVD, Negative Carotid Bruits, Negative Hepatojugular Reflux, No Nodes Lungs: Clear to auscultation, Normal air movement, No rhonchi, No wheeze Cardiovascular: Regular Rhythm, Normal S1, Normal S2, No murmurs, Tachycardic Abdomen: Bowel Sounds Present, Soft, Non Tender, Distended - With mildly reduced bowel sounds. Extremities: No clubbing, No cyanosis, No edema, Capillary Refill Less than 3 Seconds Skin: No rashes, No breakdown Musculoskeletal: No Tenderness to Palpation of Joints or Extremities Lymphatic: No Cervical, Supraclavicular, or Inguinal Adenopathy Neurological: Cranial nerves II-XII grossly intact, Neuro grossly intact, Motor Exam 5/5 strength throughout Psych/Mental Status: Normal Affect, Appropriate, Alert and oriented to time, place, person, mood and affect Laboratory Results 07/21/18 18:55: WBC 17.8 H, RBC 4.86, Hgb 14.4, Hct 43.5, MCV 89.5, MCH 29.6, M CHC 33.1, RDW 13.3, RDW Differential 43.3, Plt Count 228, MPV 10.8, Immature Gran % (Auto) 0.100, Neut % (Auto) 86.5 H, Lymph % (Auto) 7.3 L, [place] % (Auto) 6.0, Eos % (Auto) 0.0, Baso % (Auto) 0.1, Absolute Neuts (auto) 15.4 H, Absolute Lymphs (auto) 1.30, Total Counted Not Reportable, Differential Comment SCANNED, Atypical Lymphocytes RARE 07/21/18 18:55: PT 14.3, INR 1.1, APTT 28.2 07/21/18 18:55: Sodium 139, Potassium 4.1, Chloride 106, Carbon Dioxide 23.0, Anion Gap 10, BUN 42 H, Creatinine 2.72 H, Estim Creat Clear Calc 28.99, Est GFR (MDRD) Af Amer 32 L, Est GFR (MDRD) Non-Af 26 L, BUN/Creatinine Ratio 15.4, Glucose 76, Calcium 9.5, Total Bilirubin 0.60, AST 14 L, ALT 20, Alkaline Phosphatase 89, Total Protein 7.4, Albumin 3.5, Globulin 3.9, Albumin/Globulin Ratio 0.9 07/21/18 18:55: Lactic Acid 2.7 H 07/21/18 20:46: Urine Color Yellow, Urine Clarity Cloudy, Urine pH 8.0, Ur Specific [place] 1.015, Urine Protein 100 H, Urine Glucose (UA) Normal, Urine Ketones Negative, Urine Occult Blood 150 H, Urine Nitrite Negative, Urine Bilirubin Negative, Urine Urobilinogen Normal, Ur Leukocyte Esterase 500 H, Urine RBC 0-5 SEEN, Urine WBC 0-5 SEEN, Ur Squamous Epith Cells 0 SEEN, Urine Bacteria 2+, Urine Mucus 0 SEEN 07/21/18 22:23: Lactic Acid 1.4 07/22/18 04:00: WBC 21.1 H, RBC 4.46 L, Hgb 13.1, Hct 40.9, MCV 91.7, MCH 29.4, MCHC 32.0, RDW 13.5, RDW Differential 44.5 H, Plt Count 168, MPV 10.3 07/22/18 04:00: Sodium 141, Potassium 4.9, Chloride 110 H, Carbon Dioxide 21.0, Anion Gap 10, BUN 48 H, Creatinine 3.00 H, Estim Creat Clear Calc 28.18, Est GFR (MDRD) Af Amer 29 L, Est GFR (MDRD) Non-Af 24 L, BUN/Creatinine Ratio 16.0, Glucose 118 H, Calcium 8.3 L 07/22/18 06:49: POC Glucose 142 H Diagnostic Data Chest X-Ray 07/21/18 19:09 IMPRESSION: Clear lungs. Multiple distended loops of bowel in the upper abdomen with air superimposed beneath the right hemidiaphragm. It is more likely that this is within a distended bowel lumen rather than free air. The study dated 02/03/2017 had a similar appearance. However, if there is concern for free air, further evaluation with an abdominal CT is recommended. Electronically Signed: Manny Alison, at 20:32 EST Tel , Service support , Current Medications Acetaminophen (Tylenol) 650 mg PO Q6H PRN PRN PRN Reason: FEVER Last Admin: 07/22/18 05:54 Dose: 650 mg Acetic Acid (Acetic Acid) 30 ml IR BID HAILEY Al Hydroxide/Mg Hydroxide (Mylanta Ii) 30 ml PO Q6H PRN PRN PRN Reason: INDIGESTION Ascorbic Acid (Vitamin C) 500 mg PO DAILY@0800 [facility] Atorvastatin Calcium (Lipitor) 10 mg PO QHS HAILEY Bisacodyl (Dulcolax) 10 mg RECTAL DAILY PRN PRN PRN Reason: Constipation Calcitriol (Rocaltrol) 0.25 mcg PO MoWeFr@1000 [facility] Calcium/Vitamin D (Os-Phillip 500mg + D) 1 tablet PO BID HAILEY Dextrose (D50w Syringe) 0 gm IV X1 PRN; Protocol PRN Reason: Hypoglycemia Docusate Sodium (Colace) 100 mg PO BID [place] Glucagon () 1 mg IM .X1 PRN PRN Reason: Hypoglycemia Guaifenesin (Robitussin) 5 ml PO Q4H PRN PRN PRN Reason: COUGH Heparin Sodium (Porcine) (Heparin Na) 5,[address] [facility] Last Admin: 07/22/18 05:42 Dose: 5,000 unit Ceftriaxone Sodium (Rocephin) 1 gm in 50 mls @ 100 mls/hr IV Q24@2200 [facility] Sodium Chloride () 250 mls @ 15 mls/hr IV .[id number] PRN PRN Reason: SALINE FLUSH Sodium Chloride () 1,000 mls @ 150 mls/hr IV .Q6H40M [facility] Stop: 07/22/18 13:14 Last Admin: 07/22/18 08:05 Dose: 150 mls/hr Magnesium Hydroxide (Milk Of Magnesia) 30 ml PO DAILY PRN PRN PRN Reason: Constipation Metoclopramide HCl (Reglan) [address] [facility] Last Admin: 07/22/18 08:06 Dose: 10 mg Multivitamins ([facility]ivitamin) [facility] Senna/Docusate Sodium (Senokot-S, Rosalina-Colace) 1 tablet PO BID PRN PRN PRN Reason: Constipation Simethicone (Mylicon) [address] [facility] Last Admin: 07/22/18 08:06 Dose: 80 mg Sodium Chloride () 5 - 15 ml IV UD PRN PRN Reason: SALINE FLUSH Last Admin: 07/22/18 03:57 Dose: 10 ml Medical Necessity - Tobacco Use Smoking Status: Never smoker Tobacco Use: Non-smoker Assessment/Plan All Active Problems Sepsis (Acute) UTI (urinary tract infection) due to urinary indwelling catheter (Acute) Colon obstruction (Resolved) 1. Severe sepsis due to acute cystitis * still remains febrile, leucocytosis trended up to 21, from 17 on admission * temperature peaked at 102.7 Fahrenheit this morning * lactic acid trended down * on IVF NS * on IV ceftriaxone. * If temperature and white cell count dont trend down, will consider broadening antibiotic coverage * blood and urine cultures pending * 2. ANTONY: * Cr trended up from 2.72 to 3. * On IVF. Likely prerenal due to decreased perfusion as lactic acid was also elevated on admission. * will check urine electrolytes and kidney and bladder USG * continue IVF and trend BMP * 3. Diabetes mellitus * will resume home insulin dose-25 units daily * ISS. * Accuchecks ACHS * 4. Neurogenic bladder s/p suprapubic catheter placement * Catheter is leaking around site of insertion. Has mild erythema around site of insertion. * Consult urology for change of catheter as he likely will need a bigger size. * 5. Multiple sclerosis: Able 6. Hypertension: On lisinopril. Lisinopril on hold on account of [place] I. IV hydralazine as needed 7. Abdominal distention cardiac ileus: * At time of review, patient's abdomen was distended and spent admitted to percussion. * He denied positive gas having bowel movements. * Plan was to get abdominal x-ray series. * However after review, patient had a large soft bowel movement. * We will therefore hold off on abdominal x-rays now, and monitor.,\ * DVT prophylaxis: heparin Code Visit Inpatient E&M: [id number] [facility] Hosp L3
--- NOTE | 2018-07-22 09:59 | US_ITS ---
STUDY: RENAL ULTRASOUND - COMPLETE REASON FOR EXAM: Male, 53 years old. Acute renal failure TECHNIQUE: Ultrasound evaluation of the kidneys was performed with real-time and static cunningham-scale imaging. COMPARISON: None. FINDINGS: RIGHT KIDNEY: Normal location of the right kidney, which is normal in size. The right kidney measures 12.5 x 5.3 x 4.3 cm. There is a normal cortex of the right kidney. The renal cortex measures 1.5 cm. There is no right renal mass or cyst. There is a 6 mm nonobstructive stone. There is mild right hydronephrosis. DISTAL RIGHT URETER: There is right hydroureter. LEFT KIDNEY: Normal location of the left kidney, which is normal in size. The left kidney measures 12.0 x 5.1 x 5.3 cm. There is a normal cortex of the left kidney. The renal cortex measures 1.7 cm. There is no left renal mass or cyst. There is a 1.2 cm mid renal stone. There is severe left hydronephrosis. DISTAL LEFT URETER: There is left hydroureter. BLADDER: The urinary bladder is decompressed with a Arizmendi catheter. There are bladder calculi. US/Kidney and Bladder IMPRESSION: Calculi are noted of the kidneys with hydronephrosis and bilateral hydroureters, left more severe than right. Decompressed urinary bladder with calculi suspected. Electronically Signed: Daryl Herman DO at 18:07 EST Tel [phone], Service support ,
[2018-07-22] MEDS: Docusate Sodium 100 MG Capsule PO ×2 (10:11→21:36)
[2018-07-22] MEDS: Calcitriol 0.25 MCG Capsule PO (10:11)
[2018-07-22] MEDS: Calcium Carb/Vitamin D 1 TABLET Tablet PO ×2 (10:11→21:48)
--- NOTE | 2018-07-22 10:32 | CON.PCM_ITS ---
Problem List (1) Neurogenic bladder Status: Chronic Comment: status post suprapubic catheter (2) Sepsis Status: Acute Qualifiers: Sepsis type: sepsis due to unspecified organism Qualified Code(s): A41.9 - Sepsis, unspecified organism (3) UTI (urinary tract infection) due to urinary indwelling catheter Status: Acute (4) DM type 1 (diabetes mellitus, type 1) Status: Chronic (5) Multiple sclerosis Status: Chronic Reason for Consult Date of Consultation: 07/22/18 Reason for Consultation: Suprapubic tube, NGB, UTI with sepsis. History of Present Illness: The patient is a 53 year old M admitted from a long term through the emergency room with a fever to 103.1 ?F. He has a history of type 1 diabetes, MS with neurogenic bladder and an indwelling suprapubic catheter. He is a patient of Dr. Bateman in [place]. He would prefer not to follow up with Dr. Bateman. He has not seen a urologist in some time. He is not aware of the last change of his prepubic tube. He is getting twice daily acetic acid irrigations from the nursing staff. Past Medical History Past Medical History (Chronic Problems): Chronic Problems Neurogenic bladder (Chronic) status post suprapubic catheter Depression (Chronic) Anxiety (Chronic) Vitamin D deficiency (Chronic) GERD (gastroesophageal reflux disease) (Chronic) DM type 1 (diabetes mellitus, type 1) (Chronic) Multiple sclerosis (Chronic) Allergies Penicillins Adverse Reaction (Verified 05/16/16 16:03) Unknown Home Medications: Ambulatory Orders Medication Instructions Recorded Ascorbic Acid [Vitamin C] 500 mg PO DAILY@0800 05/30/15 Atorvastatin Calcium [Lipitor] 10 mg PO QHS 05/30/15 Calcitriol [Rocaltrol] 0.25 mcg PO MOWEFR 05/30/15 Calcium Carbonate/Vitamin D3 1 each PO BID 05/30/15 [Calcium 600 + D Tablet] Glucagon,Human Recombinant 1 mg IM DAILY PRN PRN 05/30/15 [Glucagen] Magnesium Hydroxide [Milk Of 30 ml PO DAILY PRN PRN 05/30/15 Magnesia] Nitroglycerin [Nitrostat] 0.4 mg SUBLINGUAL Q5M PRN 05/30/15 Docusate Sodium [Colace] 100 mg PO BID 04/21/16 Guaifenesin [Diabetic Tussin Ex] 100 mg PO Q4H PRN PRN 04/21/16 Insulin Aspart [Novolog Flexpen] See Protocol SC PRN PRN 05/17/16 Insulin Aspart [Novolog Flexpen] See Protocol SC TIDCM 05/17/16 Acetic Acid 30 ml IR BID 02/03/17 Bisacodyl 10 mg RC PRN PRN 02/03/17 Dextrose [Glucose Gel] 15 gm PO PRN PRN 02/03/17 Insulin Detemir [Levemir] 25 unit SQ DAILY 02/03/17 Lisinopril [Zestril] 2.5 mg PO DAILY 02/03/17 Mag Hydrox/Aluminum Hyd/Simeth 30 ml PO Q6H PRN PRN 02/03/17 [Antacid Suspension] Metoclopramide [Reglan] 10 mg PO TIDCM 02/03/17 Multivitamin [Multiple Vitamins] 1 each PO DAILY 02/03/17 Sennosides/Docusate Sodium [Senna 1 each PO BID PRN 02/03/17 Plus Tablet] SimETHICONE [Mylicon] 80 mg PO TIDCM 02/03/17 Acetaminophen [Tylenol] 650 mg PO Q4H PRN PRN 07/22/18 Surgical History: - - Suprapubic urinary catheter Psychiatric History: No pertinent psych hx Lives: [facility] Smoking Status: Never smoker Tobacco Use: Non-smoker - *Family History Maternal History Items: - - No history of multiple sclerosis Paternal History Items: - - Patient has confusion; likely baseline and family history could not be obtained from him. Review of Systems Constitutional: Reports: Chills, Fever Eyes: Reports: - - wears glasses HEENT: Denies: Difficulty Swallowing Cardiovascular: Denies: Chest Pressure Respiratory: Denies: Shortness of Breath Gastrointestinal: Denies: Abdominal Pain Genitourinary: Reports: Incontinence - draubage around the suprapubic tube has been constant., Retention Musculoskeletal: Reports: - - no pain, immobility due to MS. Skin: Denies: Rash Neurological: Reports: - - MS Psychiatric: Reports: Anxiety - Physical Exam General: Alert, Oriented x3, Cooperative, No apparent distress, Well developed HEENT: Atraumatic, Normocephalic Oral: Moist Mucosa, - - needs oral hygeine Neck: Supple Lungs: Normal air movement Cardiovascular: Regular Rhythm Abdomen: Distended, - - suprapubic tube site appears to be in good health, no ulcerations, erythema etc. There is urine yellow, draining from around the SPT almost continuously and it increases with palpation of his distended abdomen. Musculoskeletal: Muscle Wasting Neurological: Cranial nerves II-XII grossly intact Psych/Mental Status: Normal Affect Vital Signs Temp Pulse Resp BP Pulse Ox 100.3 F H 122 H 19 H 133/75 H 93 07/22/18 10:00 07/22/18 10:00 07/22/18 10:00 07/22/18 10:00 07/22/18 10:00 Oxygen Flow Rate (L/min) 4 Oxygen Delivery Method Room Air Weight: 79 kg Body Mass Index (BMI) 26.4 Intake and Output for Last 24 Hours 07/20/18 07/21/18 07/22/18 23:59 23:59 23:59 Intake Total 1629 / 1629 Output Total 50 / 50 Balance 1579 / 1579 Laboratory Tests Past 24 Hrs 07/21/18 07/21/18 07/21/18 18:55 18:55 18:55 WBC 17.8 H RBC 4.86 Hgb 14.4 Hct 43.5 MCV 89.5 MCH 29.6 MCHC 33.1 RDW 13.3 RDW Differential 43.3 Plt Count 228 MPV 10.8 Immature Gran % (Auto) 0.100 Neut % (Auto) 86.5 H Lymph % (Auto) 7.3 L [place] % (Auto) 6.0 Eos % (Auto) 0.0 Baso % (Auto) 0.1 Absolute Neuts (auto) 15.4 H Absolute Lymphs (auto) 1.30 Total Counted Not Reportable Differential Comment SCANNED Atypical Lymphocytes RARE PT 14.3 INR 1.1 APTT 28.2 Sodium 139 Potassium 4.1 Chloride 106 Carbon Dioxide 23.0 Anion Gap 10 BUN 42 H Creatinine 2.72 H Estim Creat Clear Calc 28.99 Est GFR (MDRD) Af Amer 32 L Est GFR (MDRD) Non-Af 26 L BUN/Creatinine Ratio 15.4 Glucose 76 Lactic Acid Calcium 9.5 Total Bilirubin 0.60 AST 14 L ALT 20 Alkaline Phosphatase 89 Total Protein 7.4 Albumin 3.5 Globulin 3.9 Albumin/Globulin Ratio 0.9 Urine Color Urine Clarity Urine pH Ur Specific [place] Urine Protein Urine Glucose (UA) Urine Ketones Urine Occult Blood Urine Nitrite Urine Bilirubin Urine Urobilinogen Ur Leukocyte Esterase Urine RBC Urine WBC Ur Squamous Epith Cells Urine Bacteria Urine Mucus 07/21/18 07/21/18 07/21/18 18:55 20:46 22:23 WBC RBC Hgb Hct MCV MCH MCHC RDW RDW Differential Plt Count MPV Immature Gran % (Auto) Neut % (Auto) Lymph % (Auto) [place] % (Auto) Eos % (Auto) Baso % (Auto) Absolute Neuts (auto) Absolute Lymphs (auto) Total Counted Differential Comment Atypical Lymphocytes PT INR APTT Sodium Potassium Chloride Carbon Dioxide Anion Gap BUN Creatinine Estim Creat Clear Calc Est GFR (MDRD) Af Amer Est GFR (MDRD) Non-Af BUN/Creatinine Ratio Glucose Lactic Acid 2.7 H 1.4 Calcium Total Bilirubin AST ALT Alkaline Phosphatase Total Protein Albumin Globulin Albumin/Globulin Ratio Urine Color Yellow Urine Clarity Cloudy Urine pH 8.0 Ur Specific [place] 1.015 Urine Protein 100 H Urine Glucose (UA) Normal Urine Ketones Negative Urine Occult Blood 150 H Urine Nitrite Negative Urine Bilirubin Negative Urine Urobilinogen Normal Ur Leukocyte Esterase 500 H Urine RBC 0-5 SEEN Urine WBC 0-5 SEEN Ur Squamous Epith Cells 0 SEEN Urine Bacteria 2+ Urine Mucus 0 SEEN 07/22/18 07/22/18 04:00 04:00 WBC 21.1 H RBC 4.46 L Hgb 13.1 Hct 40.9 MCV 91.7 MCH 29.4 MCHC 32.0 RDW 13.5 RDW Differential 44.5 H Plt Count 168 MPV 10.3 Immature Gran % (Auto) Neut % (Auto) Lymph % (Auto) [place] % (Auto) Eos % (Auto) Baso % (Auto) Absolute Neuts (auto) Absolute Lymphs (auto) Total Counted Differential Comment Atypical Lymphocytes PT INR APTT Sodium 141 Potassium 4.9 Chloride 110 H Carbon Dioxide 21.0 Anion Gap 10 BUN 48 H Creatinine 3.00 H Estim Creat Clear Calc 28.18 Est GFR (MDRD) Af Amer 29 L Est GFR (MDRD) Non-Af 24 L BUN/Creatinine Ratio 16.0 Glucose 118 H Lactic Acid Calcium 8.3 L Total Bilirubin AST ALT Alkaline Phosphatase Total Protein Albumin Globulin Albumin/Globulin Ratio Urine Color Urine Clarity Urine pH Ur Specific [place] Urine Protein Urine Glucose (UA) Urine Ketones Urine Occult Blood Urine Nitrite Urine Bilirubin Urine Urobilinogen Ur Leukocyte Esterase Urine RBC Urine WBC Ur Squamous Epith Cells Urine Bacteria Urine Mucus POC Glucose 07/22/18 07/22/18 09:16 06:49 POC Glucose 171 H 142 H Assessment/Plan All Active Problems Sepsis (Acute) UTI (urinary tract infection) due to urinary indwelling catheter (Acute) Colon obstruction (Resolved) SPT removed at bedside with copious amounts of urine flowing out of the SPT site following removal of the catheter. The site was cleansed with Betadine and a brand-new 18 [place] catheter was inserted without difficulty 10 cc were placed in the balloon. Purulent urine drained into the Arizmendi catheter bag at least 250 cc of urine drained following placement of the new SP tube. Repeat urine culture. Antibiotic coverage for infection and sepsis. Stop acetic acid irrigations at the present time. Upon discharge she will need every 3 week suprapubic tube changes. Acetic acid irrigations can be resumed following resolution of sepsis and urinary tract infection. CT scan was done showing the upper tracts. He will need better follow-up from a urologic standpoint on discharge. Thank you for the privilege of this consult.
[2018-07-22] MEDS: Senna/Docusate Sodium 1 Tablet PO (10:49)
[2018-07-22 11:28] LABS: Urine Sodium 64 mmol/L (Not Establ.)
[2018-07-22 12:25] LABS: Bedside Glucose 293 mg/dL (70-110)
--- NOTE | 2018-07-22 12:33 | CASEMGMT ---
LW/POA forms in computer, SW printed and placed in paper chart. CEDRICK Hook, DIRECTOR MANUFACTURING ENGINEERING
--- NOTE | 2018-07-22 12:57 | NURSING ---
report called to [place] 3 dry pan charger
[2018-07-22] MEDS: Ascorbic Acid 500 MG Tablet PO (13:03)
--- NOTE | 2018-07-22 13:03 | CASEMGMT ---
SW participated in ICU rounds this morning, pt's parents present. SW explained will assist in getting pt back to [facility] when ready, pt and parents in agreement. 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 SW did attempt to reach pt's POA, however SW was not able to leave a message for pt's POA and brother Adama. Green sheet along w/transport forms placed on the chart in event pt is able to be discharged back to [facility] tomorrow. CEDRICK Hook, NOTE KEEPER
[2018-07-22] MEDS: Insulin Lispro 100 UNIT/ML INSULN.PEN SC ×3 (13:14→21:41)
--- NOTE | 2018-07-22 13:29 | NURSING ---
to 315 per bed, SPLASH LINE OPERATORJOSSE flynn
[2018-07-22] MEDS: Multivitamins,Therapeutic Tablet 1 TABLET PO (14:38)
[2018-07-22 17:31] LABS: Bedside Glucose 364 mg/dL (70-110)
[2018-07-22] MEDS: Atorvastatin Calcium 10 MG Tablet PO (21:36)
[2018-07-22 22:05] LABS: Bedside Glucose 289 mg/dL (70-110)
[2018-07-22] MEDS: Ceftriaxone 1 GM/50 ML BAG IV (22:14)
[2018-07-23] VITALS (11 sets, daily range): BP systolic 103–117; BP diastolic 57–66; PULSE 87–102; RESP 18; TEMP 36.8–37.1; O2SAT 94–97
[2018-07-23] MEDS: 0.9% Normal Saline 1,000 ML 150 ML IV ×2 (00:42→06:53)
[2018-07-23] MEDS: Insulin Lispro 100 UNIT/ML INSULN.PEN SC ×4 (06:53→21:57)
[2018-07-23] MEDS: Heparin Injection (Vial) 5,000 UNIT/ML VIAL 5000 UNIT SC ×3 (06:53→21:57)
[2018-07-23 07:07] LABS: Absolute Lymphocyte Count 0.76 X10^3/ul (0.83-4.51); Absolute Neutrophil Count 11.6 X10^3/uL (2.0-7.7); Basophil# 0.02 X10^3/uL; Basophil% 0.1 % (0-1); Eosinophil# 0.05 X10^3/uL; Eosinophils% 0.4 % (0-5); Hematocrit 32.2 % (40-54); Hemoglobin 10.5 g/dl (13.0-16.5); Lymphocyte # 0.76 X10^3/ul (4.0); Lymphocyte % 5.7 % (19-41); Mean Corp Hgb Conc 32.6 g/gl (32-36); Mean Corpuscular Hgb 29.2 pg (27.0-32.0); Mean Corpuscular Volume 89.7 fL (80-94); Mean Platelet Vol. 10.3 fl (6.2-12.0); Monocyte# 0.91 X10^3/uL; Monocyte% 6.8 % (0-10); Neutrophil # 11.64 X10^3/uL (2.7-7.7); Neutrophil % 86.9 % (47-70); Platelet Count 117 K/mm3 (150-450); RBC Distribution Width CV 13.7 % (11.6-14.6); RBC Distribution Width SD 45.1 fl (35.1-43.9); Red Blood Count 3.59 M/mm3 (4.6-6.2); White Blood Count 13.4 K/mm3 (4.4-11.0)
[2018-07-23 07:11] LABS: Bedside Glucose 311 mg/dL (70-110)
[2018-07-23 07:16] LABS: POSITIVE COUNT NO; POSITIVE DIFFERENTIAL NO; POSITIVE MORPHOLOGY NO
[2018-07-23 07:31] LABS: Anion Gap 10 (5-15); BUN 43 mg/dL (7-18); Chloride 111 mmol/L (98-107); Creatinine, Serum 1.59 mg/dL (0.70-1.30); EST Glomerular Filtration Rate 49 mL/min (>60); Est Glom Filt Rate - Afr Amer 59 mL/min (>60); Estimated Creatinine Clearance 53.18 ml/min; Glucose 288 mg/dL (74-106); Potassium 4.1 mmol/L (3.5-5.1); Sodium Level 141 mmol/L (136-145)
[2018-07-23] MEDS: Calcium Carb/Vitamin D 1 TABLET Tablet PO ×2 (07:57→21:57)
[2018-07-23] MEDS: Ascorbic Acid 500 MG Tablet PO (07:57)
[2018-07-23] MEDS: Metoclopramide 10 MG Tablet PO ×3 (07:57→17:12)
[2018-07-23] MEDS: Multivitamins,Therapeutic Tablet 1 TABLET PO (07:57)
--- NOTE | 2018-07-23 10:05 | PCM.PN.HOSP ---
Subjective: Patient seen and examined. He had no complaints and felt well. He went to the monitoring engineer taken off as a medium uncomfortable. He denied any fever or chills, any cough or chest pain, any shortness of breath, abdominal pain, any diarrhea vomiting. He had a large bowel movement this morning. Suprapubic catheter was changed by urology yesterday. Labs and vitals reviewed. Vitals/I&O's: Vital Signs Temp Pulse Resp BP Pulse Ox 98.3 F 96 18 103/61 94 07/23/18 07:55 07/23/18 07:55 07/23/18 07:55 07/23/18 07:55 07/23/18 07:55 Oxygen Flow Rate (L/min) 1 Oxygen Delivery Method Room Air Weight: 176 lb 14.4 oz Body Mass Index (BMI) 26.4 Intake and Output for Last 24 Hours 07/21/18 07/22/18 07/23/18 23:59 23:59 23:59 Intake Total 3118 / 3118 2209 / 2209 Output Total 900 / 900 2450 / 2450 Balance 2218 / 2218 -241 / -241 General: Alert, Oriented x3, Cooperative, No apparent distress HEENT: Atraumatic, PERRLA, EOMI, Normocephalic Oral: Moist Mucosa Neck: Supple, No JVD, Negative Carotid Bruits Lungs: Clear to auscultation, Normal air movement, No rhonchi, No wheeze, No rales Cardiovascular: Regular rate, Regular Rhythm, Normal S1, Normal S2, No murmurs Abdomen: Bowel Sounds Present, Soft, Non Tender, No Hepato-splenomegaly, - - mildly distended, tympanitic to percussion Extremities: No clubbing, No cyanosis, No edema, Capillary Refill Less than 3 Seconds Skin: No rashes, No breakdown Musculoskeletal: No Tenderness to Palpation of Joints or Extremities Lymphatic: No Cervical, Supraclavicular, or Inguinal Adenopathy Neurological: Cranial nerves II-XII grossly intact, Neuro grossly intact, Motor Exam 5/5 strength throughout Psych/Mental Status: Normal Affect, Appropriate, Alert and oriented to time, place, person, mood and affect Microbiology Past 72 Hours 07/21/18 19:45 Blood Culture (Wb) - Left Hand Blood Culture - Preliminary 07/21/18 18:55 Blood Culture (Wb) - Anticubital Right Blood Culture - Preliminary Gram negative milo 07/21/18 21:14 Urine, Catheterized Urine Culture - Preliminary Gram negative milo Gram negative milo#2 Laboratory Results 07/22/18 11:00: Urine Creatinine 149.00 07/22/18 11:00: Ur Random Sodium 64 07/22/18 12:19: POC Glucose 293 H 07/22/18 17:16: POC Glucose 364 H 07/22/18 21:42: POC Glucose 289 H 07/23/18 06:15: WBC 13.4 H, RBC 3.59 L, Hgb 10.5 L, Hct 32.2 L, MCV 89.7, MCH 29.2, MCHC 32.6, RDW 13.7, RDW Differential 45.1 H, Plt Count 117 L, MPV 10.3, Immature Gran % (Auto) 0.100, Neut % (Auto) 86.9 H, Lymph % (Auto) 5.7 L, [place] % (Auto) 6.8, Eos % (Auto) 0.4, Baso % (Auto) 0.1, Absolute Neuts (auto) 11.6 H, Absolute Lymphs (auto) 0.76 L, Total Counted Not Reportable 07/23/18 06:15: Sodium 141, Potassium 4.1, Chloride 111 H, Carbon Dioxide 20.0 L, Anion Gap 10, BUN 43 H, Creatinine 1.59 H, Estim Creat Clear Calc 53.18, Est GFR (MDRD) Af Amer 59 L, Est GFR (MDRD) Non-Af 49 L, BUN/Creatinine Ratio 27.0 H, Glucose 288 H, Calcium 8.0 L 07/23/18 06:50: POC Glucose 311 H Diagnostic Data Chest X-Ray 07/21/18 19:09 IMPRESSION: Clear lungs. Multiple distended loops of bowel in the upper abdomen with air superimposed beneath the right hemidiaphragm. It is more likely that this is within a distended bowel lumen rather than free air. The study dated 02/03/2017 had a similar appearance. However, if there is concern for free air, further evaluation with an abdominal CT is recommended. Electronically Signed: Manny Rosas, at 20:32 EST Tel , Service support , Renal Ultrasound 07/22/18 09:59 IMPRESSION: Calculi are noted of the kidneys with hydronephrosis and bilateral hydroureters, left more severe than right. Decompressed urinary bladder with calculi suspected. Electronically Signed: Daryl Herman DO at 18:07 EST Tel [phone], Service support , Current Medications Acetaminophen (Tylenol) 650 mg PO Q6H PRN PRN PRN Reason: FEVER Last Admin: 07/22/18 05:54 Dose: 650 mg Al Hydroxide/Mg Hydroxide (Mylanta Ii) 30 ml PO Q6H PRN PRN PRN Reason: INDIGESTION Ascorbic Acid (Vitamin C) 500 mg PO DAILY@0800 [facility] Last Admin: 07/23/18 07:57 Dose: 500 mg Atorvastatin Calcium (Lipitor) 10 mg PO QHS [facility] Last Admin: 07/22/18 21:36 Dose: 10 mg Bisacodyl (Dulcolax) 10 mg RECTAL DAILY PRN PRN PRN Reason: Constipation Calcitriol (Rocaltrol) 0.25 mcg PO MoWeFr@1000 [facility] Last Admin: 07/22/18 10:11 Dose: 0.25 mcg Calcium/Vitamin D (Os-Phillip 500mg + D) 1 tablet PO BID [facility] Last Admin: 07/23/18 07:57 Dose: 1 tablet Dextrose (D50w Syringe) 0 gm IV X1 PRN; Protocol PRN Reason: Hypoglycemia Docusate Sodium (Colace) 100 mg PO BID [facility] Last Admin: 07/22/18 21:36 Dose: 100 mg Glucagon () 1 mg IM .X1 PRN PRN Reason: Hypoglycemia Guaifenesin (Robitussin) 5 ml PO Q4H PRN PRN PRN Reason: COUGH Heparin Sodium (Porcine) (Heparin Na) 5,000 unit SC Q8 [facility] Last Admin: 07/23/18 06:53 Dose: 5,000 unit Ceftriaxone Sodium (Rocephin) 1 gm in 50 mls @ 100 mls/hr IV Q24@2200 [facility] Last Admin: 07/22/18 22:14 Dose: 100 mls/hr Sodium Chloride () 250 mls @ 15 mls/hr IV .[id number] PRN PRN Reason: SALINE FLUSH Insulin Glargine (Lantus (Bkc)) 25 units SC DAILY [facility] Last Admin: 07/22/18 10:08 Dose: 25 units Insulin Human Lispro (Humalog Kwikpen (Bkc)) 0 unit SC ACHS [facility]; Protocol Last Admin: 07/23/18 06:53 Dose: 6 units Magnesium Hydroxide (Milk Of Magnesia) 30 ml PO DAILY PRN PRN PRN Reason: Constipation Metoclopramide HCl (Reglan) 10 mg PO TIDCM [facility] Last Admin: 07/23/18 07:57 Dose: 10 mg Multivitamins (Multivitamin) 1 tablet PO DAILYCM [facility] Last Admin: 07/23/18 07:57 Dose: 1 tablet Senna/Docusate Sodium (Senokot-S, Rosalina-Colace) 1 tablet PO BID PRN PRN PRN Reason: Constipation Last Admin: 07/22/18 10:49 Dose: 1 tablet Simethicone (Mylicon) 80 mg PO TIDCM [facility] Last Admin: 07/23/18 07:57 Dose: 80 mg Sodium Chloride () 5 - 15 ml IV UD PRN PRN Reason: SALINE FLUSH Last Admin: 07/22/18 03:57 Dose: 10 ml Medical Necessity - Tobacco Use Smoking Status: Never smoker Tobacco Use: Non-smoker Assessment/Plan All Active Problems Sepsis (Acute) UTI (urinary tract infection) due to urinary indwelling catheter (Acute) Colon obstruction (Resolved) 1. Severe sepsis due to acute cystitis temperature has trended down leucocytosis has trended down to 13.4 on IV ceftriaxone blood and urine cultures still pending 2. ANTONY: Cr trended down to 1.59 from 3 renal USG showed bilateral calculi of the kidneys with hydronephrosis and bilateral hydroureters, left more severe than right. decompressed urinary bladder with calculi suspected will consult urology- Dr Fortune available for consults from tomorrow 3. Diabetes mellitus on lantus 25IU daily ISS. Accuchecks ACHS 4. Neurogenic bladder s/p suprapubic catheter placement suprapubic catheter changed by urology yesterday to a size 18 [place] catheter has mild excoriation and discharge around catheter site skin care per nurses Catheter is leaking around site of insertion. Has mild erythema around site of insertion. Consult urology for change of catheter as he likely will need a bigger size. 5. Multiple sclerosis: stAble 6. Hypertension: On lisinopril. Lisinopril on hold on account of [place] I. IV hydralazine as needed 7. Abdominal distention: stable. having regular bowel movements. Will continue monitoring DVT prophylaxis: heparin Code Visit Inpatient E&M: 05895 Subs Hosp L3
[2018-07-23] MEDS: Docusate Sodium 100 MG Capsule PO ×2 (10:06→21:57)
--- NOTE | 2018-07-23 10:09 | PN_ITS ---
Subjective: Patient seen and examined. He had no complaints and felt well. He went to the quality assurance monitor chassis taken off as a medium uncomfortable. He denied any fever or chills, any cough or chest pain, any shortness of breath, abdominal pain, any diarrhea vomiting. He had a large bowel movement this morning. Suprapubic catheter was changed by urology yesterday. Labs and vitals reviewed. Vitals/I&O's: Vital Signs Temp Pulse Resp BP Pulse Ox 98.3 F 96 18 103/61 94 07/23/18 07:55 07/23/18 07:55 07/23/18 07:55 07/23/18 07:55 07/23/18 07:55 Oxygen Flow Rate (L/min) 1 Oxygen Delivery Method Room Air Weight: 176 lb 14.4 oz Body Mass Index (BMI) 26.4 Intake and Output for Last 24 Hours 07/21/18 07/22/18 07/23/18 23:59 23:59 23:59 Intake Total 3118 / 3118 2209 / 2209 Output Total 900 / 900 2450 / 2450 Balance 2218 / 2218 -241 / -241 General: Alert, Oriented x3, Cooperative, No apparent distress HEENT: Atraumatic, PERRLA, EOMI, Normocephalic Oral: Moist Mucosa Neck: Supple, No JVD, Negative Carotid Bruits Lungs: Clear to auscultation, Normal air movement, No rhonchi, No wheeze, No rales Cardiovascular: Regular rate, Regular Rhythm, Normal S1, Normal S2, No murmurs Abdomen: Bowel Sounds Present, Soft, Non Tender, No Hepato-splenomegaly, - - mildly distended, tympanitic to percussion Extremities: No clubbing, No cyanosis, No edema, Capillary Refill Less than 3 Seconds Skin: No rashes, No breakdown Musculoskeletal: No Tenderness to Palpation of Joints or Extremities Lymphatic: No Cervical, Supraclavicular, or Inguinal Adenopathy Neurological: Cranial nerves II-XII grossly intact, Neuro grossly intact, Motor Exam 5/5 strength throughout Psych/Mental Status: Normal Affect, Appropriate, Alert and oriented to time, place, person, mood and affect Microbiology Past 72 Hours 07/21/18 19:45 Blood Culture (Wb) - Left Hand Blood Culture - Preliminary 07/21/18 18:55 Blood Culture (Wb) - Anticubital Right Blood Culture - Preliminary Gram negative milo 07/21/18 21:14 Urine, Catheterized Urine Culture - Preliminary Gram negative milo Gram negative milo#2 Laboratory Results 07/22/18 11:00: Urine Creatinine 149.00 07/22/18 11:00: Ur Random Sodium 64 07/22/18 12:19: POC Glucose 293 H 07/22/18 17:16: POC Glucose 364 H 07/22/18 21:42: POC Glucose 289 H 07/23/18 06:15: WBC 13.4 H, RBC 3.59 L, Hgb 10.5 L, Hct 32.2 L, MCV 89.7, MCH 29.2, MCHC 32.6, RDW 13.7, RDW Differential 45.1 H, Plt Count 117 L, MPV 10.3, I mmature Gran % (Auto) 0.100, Neut % (Auto) 86.9 H, Lymph % (Auto) 5.7 L, [place] % (Auto) 6.8, Eos % (Auto) 0.4, Baso % (Auto) 0.1, Absolute Neuts (auto) 11.6 H, Absolute Lymphs (auto) 0.76 L, Total Counted Not Reportable 07/23/18 06:15: Sodium 141, Potassium 4.1, Chloride 111 H, Carbon Dioxide 20.0 L , Anion Gap 10, BUN 43 H, Creatinine 1.59 H, Estim Creat Clear Calc 53.18, Est GFR (MDRD) Af Amer 59 L, Est GFR (MDRD) Non-Af 49 L, BUN/Creatinine Ratio 27.0 H , Glucose 288 H, Calcium 8.0 L 07/23/18 06:50: POC Glucose 311 H Diagnostic Data Chest X-Ray 07/21/18 19:09 IMPRESSION: Clear lungs. Multiple distended loops of bowel in the upper abdomen with air superimposed beneath the right hemidiaphragm. It is more likely that this is within a distended bowel lumen rather than free air. The study dated 02/03/2017 had a similar appearance. However, if there is concern for free air, further evaluation with an abdominal CT is recommended. Electronically Signed: Manny Rosas, at 20:32 EST Tel , Service support , Renal Ultrasound 07/22/18 09:59 IMPRESSION: Calculi are noted of the kidneys with hydronephrosis and bilateral hydroureters, left more severe than right. Decompressed urinary bladder with calculi suspected. Electronically Signed: Daryl Herman DO at 18:07 EST Tel [phone], Service support , Current Medications Acetaminophen (Tylenol) 650 mg PO Q6H PRN PRN PRN Reason: FEVER Last Admin: 07/22/18 05:54 Dose: 650 mg Al Hydroxide/Mg Hydroxide (Mylanta Ii) 30 ml PO Q6H PRN PRN PRN Reason: INDIGESTION Ascorbic Acid (Vitamin C) 500 mg PO DAILY@0800 [facility] Last Admin: 07/23/18 07:57 Dose: 500 mg Atorvastatin Calcium (Lipitor) 10 mg PO QHS [facility] Last Admin: 07/22/18 21:36 Dose: 10 mg Bisacodyl (Dulcolax) 10 mg RECTAL DAILY PRN PRN PRN Reason: Constipation Calcitriol (Rocaltrol) 0.25 mcg PO MoWeFr@1000 [facility] Last Admin: 07/22/18 10:11 Dose: 0.25 mcg Calcium/Vitamin D (Os-Phillip 500mg + D) 1 tablet PO BID [facility] Last Admin: 07/23/18 07:57 Dose: 1 tablet Dextrose (D50w Syringe) 0 gm IV X1 PRN; Protocol PRN Reason: Hypoglycemia Docusate Sodium (Colace) 100 mg PO BID [facility] Last Admin: 07/22/18 21:36 Dose: 100 mg Glucagon () 1 mg IM .X1 PRN PRN Reason: Hypoglycemia Guaifenesin (Robitussin) 5 ml PO Q4H PRN PRN PRN Reason: COUGH Heparin Sodium (Porcine) (Heparin Na) 5,000 unit SC Q8 [facility] Last Admin: 07/23/18 06:53 Dose: 5,000 unit Ceftriaxone Sodium (Rocephin) 1 gm in 50 mls @ 100 mls/hr IV Q24@2200 [facility] Last Admin: 07/22/18 22:14 Dose: 100 mls/hr Sodium Chloride () 250 mls @ 15 mls/hr IV .[id number] PRN PRN Reason: SALINE FLUSH Insulin Glargine (Lantus (Bkc)) 25 units SC DAILY [facility] Last Admin: 07/22/18 10:08 Dose: 25 units Insulin Human Lispro (Humalog Kwikpen (Bkc)) 0 unit SC ACHS [facility]; Protocol Last Admin: 07/23/18 06:53 Dose: 6 units Magnesium Hydroxide (Milk Of Magnesia) 30 ml PO DAILY PRN PRN PRN Reason: Constipation Metoclopramide HCl (Reglan) 10 mg PO TIDCM [facility] Last Admin: 07/23/18 07:57 Dose: 10 mg Multivitamins (Multivitamin) 1 tablet PO DAILYCM [facility] Last Admin: 07/23/18 07:57 Dose: 1 tablet Senna/Docusate Sodium (Senokot-S, Rosalina-Colace) 1 tablet PO BID PRN PRN PRN Reason: Constipation Last Admin: 07/22/18 10:49 Dose: 1 tablet Simethicone (Mylicon) 80 mg PO TIDCM [facility] Last Admin: 07/23/18 07:57 Dose: 80 mg Sodium Chloride () 5 - 15 ml IV UD PRN PRN Reason: SALINE FLUSH Last Admin: 07/22/18 03:57 Dose: 10 ml Medical Necessity - Tobacco Use Smoking Status: Never smoker Tobacco Use: Non-smoker Assessment/Plan All Active Problems Sepsis (Acute) UTI (urinary tract infection) due to urinary indwelling catheter (Acute) Colon obstruction (Resolved) 1. Severe sepsis due to acute cystitis * temperature has trended down * leucocytosis has trended down to 13.4 * on IV ceftriaxone * blood and urine cultures still pending * * 2. ANTONY: * Cr trended down to 1.59 from 3 * renal USG showed bilateral calculi of the kidneys with hydronephrosis and bilateral hydroureters, left more severe than right. decompressed urinary bladder with calculi suspected * will consult urology- Dr Fortune available for consults from tomorrow * 3. Diabetes mellitus * on lantus 25IU daily * ISS. * Accuchecks ACHS * 4. Neurogenic bladder s/p suprapubic catheter placement * suprapubic catheter changed by urology yesterday to a size 18 Dutch catheter * has mild excoriation and discharge around catheter site * skin care per nurses * Catheter is leaking around site of insertion. Has mild erythema around site of insertion. * Consult urology for change of catheter as he likely will need a bigger size. * 5. Multiple sclerosis: stAble 6. Hypertension: On lisinopril. Lisinopril on hold on account of [place] I. IV hydralazine as needed 7. Abdominal distention: stable. having regular bowel movements. Will continue monitoring DVT prophylaxis: heparin Code Visit Inpatient E&M: [id number] [facility] Hosp L3
[2018-07-23 11:45] LABS: Bedside Glucose 308 mg/dL (70-110)
[2018-07-23] MEDS: 0.9% Normal Saline 1,000 ML 125 ML IV ×2 (13:22→22:03)
[2018-07-23 16:37] LABS: Bedside Glucose 231 mg/dL (70-110)
[2018-07-23] MEDS: Atorvastatin Calcium 10 MG Tablet PO (21:57)
[2018-07-23] MEDS: Ceftriaxone 1 GM/50 ML BAG IV (21:57)
[2018-07-23 22:31] LABS: Bedside Glucose 307 mg/dL (70-110)
[2018-07-24] VITALS (8 sets, daily range): BP systolic 110–116; BP diastolic 66–77; PULSE 59–88; RESP 16–18; TEMP 36.8–37.2; O2SAT 96–98
[2018-07-24] MEDS: Heparin Injection (Vial) 5,000 UNIT/ML VIAL 5000 UNIT SC ×3 (05:59→20:54)
[2018-07-24] MEDS: Insulin Lispro 100 UNIT/ML INSULN.PEN SC ×4 (05:59→20:54)
[2018-07-24 06:05] LABS: Bedside Glucose 171 mg/dL (70-110)
[2018-07-24] MEDS: 0.9% Normal Saline 1,000 ML 125 ML IV ×2 (06:22→15:07)
[2018-07-24 06:23] LABS: Absolute Neutrophil Count 8.7 X10^3/uL (2.0-7.7); Basophil# 0.02 X10^3/uL; Basophil% 0.2 % (0-1); Eosinophil# 0.12 X10^3/uL; Eosinophils% 1.2 % (0-5); Lymphocyte % 3.9 % (19-41); Mean Corp Hgb Conc 32.4 g/gl (32-36); Mean Corpuscular Hgb 29.3 pg (27.0-32.0); Mean Corpuscular Volume 90.7 fL (80-94); Mean Platelet Vol. 10.5 fl (6.2-12.0); Monocyte% 10.7 % (0-10); Neutrophil # 8.66 X10^3/uL (2.7-7.7); Neutrophil % 83.8 % (47-70); Platelet Count 133 K/mm3 (150-450); RBC Distribution Width CV 13.4 % (11.6-14.6); Red Blood Count 3.75 M/mm3 (4.6-6.2); White Blood Count 10.3 K/mm3 (4.4-11.0)
[2018-07-24 06:26] LABS: Differential Indicated SCAN CRITERIA MET; POSITIVE COUNT NO; POSITIVE DIFFERENTIAL YES; POSITIVE MORPHOLOGY NO
[2018-07-24 06:36] LABS: Anion Gap 10 (5-15); BUN 22 mg/dL (7-18); BUN/Creat Ratio 21.2 RATIO (10-20); Calcium,Total 7.9 mg/dL (8.5-10.1); Chloride 109 mmol/L (98-107); Creatinine, Serum 1.04 mg/dL (0.70-1.30); EST Glomerular Filtration Rate 80 mL/min (>60); Est Glom Filt Rate - Afr Amer 97 mL/min (>60); Glucose 172 mg/dL (74-106); Potassium 3.7 mmol/L (3.5-5.1); Sodium Level 142 mmol/L (136-145)
--- NOTE | 2018-07-24 09:02 | NURSING ---
spoke with manager medicare marketing at [facility].. pt sees Urologist in [place] Dr. Rodriguez through [facility]. Pt has been going to him once a month for past 5mo. pt supposed to have ABD xray and Kidney U/S testing in September. are looking at doing an Ureter bag vs. S/P
[2018-07-24] MEDS: Metoclopramide 10 MG Tablet PO ×3 (09:11→16:41)
[2018-07-24] MEDS: Ascorbic Acid 500 MG Tablet PO (09:11)
[2018-07-24] MEDS: Calcium Carb/Vitamin D 1 TABLET Tablet PO ×2 (09:11→20:55)
[2018-07-24] MEDS: Calcitriol 0.25 MCG Capsule PO (09:11)
[2018-07-24] MEDS: Docusate Sodium 100 MG Capsule PO (09:11)
[2018-07-24] MEDS: Multivitamins,Therapeutic Tablet 1 TABLET PO (09:11)
[2018-07-24 11:56] LABS: Bedside Glucose 268 mg/dL (70-110)
--- NOTE | 2018-07-24 12:14 | PCM.PN.HOSP ---
Subjective: Patient seen and examined. He feels well and has no complaints. He is eating well and feels well. He denies any fever, any chills, any cough or chest pain, any shortness of breath, any abdominal pain, any diarrhea or vomiting. Review of systems otherwise negative. Labs and vitals reviewed. Ultrasound done on account of [place] I showed bilateral hydronephrosis worse on the left than the right. Patient does follow-up with a urologist in [place] and his next appointment is October 07. This follow-up is for the suprapubic catheter redness is not clear whether he has been previously diagnosed with bilateral hydronephrosis. Vitals/I&O's: Vital Signs Temp Pulse Resp BP Pulse Ox 98.2 F 87 18 110/69 98 07/24/18 09:10 07/24/18 09:10 07/24/18 09:10 07/24/18 09:10 07/24/18 09:10 Oxygen Flow Rate (L/min) 1 Oxygen Delivery Method Room Air Weight: 176 lb 9.444 oz Body Mass Index (BMI) 26.4 Intake and Output for Last 24 Hours 07/22/18 07/23/18 07/24/18 23:59 23:59 23:59 Intake Total 3118 / 3118 3545 / 3545 2671 / 2671 Output Total 900 / 900 4175 / 4175 2475 / 2475 Balance 2218 / 2218 -630 / -630 196 / 196 General: Alert, Oriented x3, Cooperative, No apparent distress HEENT: Atraumatic, PERRLA, EOMI, Normocephalic Oral: Moist Mucosa Neck: Supple, No JVD, Negative Carotid Bruits Lungs: Clear to auscultation, Normal air movement, No rhonchi, No wheeze, No rales Cardiovascular: Regular rate, Regular Rhythm, Normal S1, Normal S2, No murmurs Abdomen: Bowel Sounds Present, Soft, Non Tender, No Hepato-splenomegaly, - - mildly distended, tympanitic to percussion Extremities: No clubbing, No cyanosis, No edema, Capillary Refill Less than 3 Seconds Skin: No rashes, No breakdown Musculoskeletal: No Tenderness to Palpation of Joints or Extremities Lymphatic: No Cervical, Supraclavicular, or Inguinal Adenopathy Neurological: Cranial nerves II-XII grossly intact, Neuro grossly intact, Motor Exam 5/5 strength throughout Psych/Mental Status: Normal Affect, Appropriate, Alert and oriented to time, place, person, mood and affect Microbiology Past 72 Hours 07/21/18 21:14 Urine, Catheterized Urine Culture - Preliminary Pseudomonas aeroginosa Danishncia stuartii 07/21/18 19:45 Blood Culture (Wb) - Left Hand Blood Culture - Final 07/21/18 18:55 Blood Culture (Wb) - Anticubital Right Blood Culture - Preliminary Providencia stuartii 07/22/18 11:00 Urine Catheter - Arizmendi Urine Culture - Preliminary GNR Poss Pseudomonas sp Gram negative milo Laboratory Results 07/23/18 16:28: POC Glucose 231 H 07/23/18 21:55: POC Glucose 307 H 07/24/18 05:48: WBC 10.3, RBC 3.75 L, Hgb 11.0 L, Hct 34.0 L, MCV 90.7, MCH 29.3, MCHC 32.4, RDW 13.4, RDW Differential 43.0, Plt Count 133 L, MPV 10.5, Immature Gran % (Auto) 0.200, Neut % (Auto) 83.8 H, Lymph % (Auto) 3.9 L, [place] % (Auto) 10.7 H, Eos % (Auto) 1.2, Baso % (Auto) 0.2, Absolute Neuts (auto) 8.7 H, Absolute Lymphs (auto) 0.40 L, Total Counted Not Reportable 07/24/18 05:48: Sodium 142, Potassium 3.7, Chloride 109 H, Carbon Dioxide 23.0, Anion Gap 10, BUN 22 H, Creatinine 1.04, Estim Creat Clear Calc 81.30, Est GFR (MDRD) Af Amer 97, Est GFR (MDRD) Non-Af 80, BUN/Creatinine Ratio 21.2 H, Glucose 172 H, Calcium 7.9 L 07/24/18 05:58: POC Glucose 171 H 07/24/18 11:44: POC Glucose 268 H Current Medications Acetaminophen (Tylenol) 650 mg PO Q6H PRN PRN PRN Reason: FEVER Last Admin: 07/22/18 05:54 Dose: 650 mg Al Hydroxide/Mg Hydroxide (Mylanta Ii) 30 ml PO Q6H PRN PRN PRN Reason: INDIGESTION Ascorbic Acid (Vitamin C) 500 mg PO DAILY@0800 [facility] Last Admin: 07/24/18 09:11 Dose: 500 mg Atorvastatin Calcium (Lipitor) 10 mg PO QHS [facility] Last Admin: 07/23/18 21:57 Dose: 10 mg Bisacodyl (Dulcolax) 10 mg RECTAL DAILY PRN PRN PRN Reason: Constipation Calcitriol (Rocaltrol) 0.25 mcg PO MoWeFr@1000 [facility] Last Admin: 07/24/18 09:11 Dose: 0.25 mcg Calcium/Vitamin D (Os-Phillip 500mg + D) 1 tablet PO BID [facility] Last Admin: 07/24/18 09:11 Dose: 1 tablet Dextrose (D50w Syringe) 0 gm IV X1 PRN; Protocol PRN Reason: Hypoglycemia Docusate Sodium (Colace) 100 mg PO BID [facility] Last Admin: 07/24/18 09:11 Dose: 100 mg Glucagon () 1 mg IM .X1 PRN PRN Reason: Hypoglycemia Guaifenesin (Robitussin) 5 ml PO Q4H PRN PRN PRN Reason: COUGH Heparin Sodium (Porcine) (Heparin Na) 5,000 unit SC Q8 [facility] Last Admin: 07/24/18 05:59 Dose: 5,000 unit Ceftriaxone Sodium (Rocephin) 1 gm in 50 mls @ 100 mls/hr IV Q24@2200 [facility] Last Admin: 07/23/18 21:57 Dose: 100 mls/hr Sodium Chloride () 250 mls @ 15 mls/hr IV .[id number] PRN PRN Reason: SALINE FLUSH Sodium Chloride () 1,000 mls @ 125 mls/hr IV .Q8H [facility] Last Admin: 07/24/18 06:22 Dose: 125 mls/hr Insulin Glargine (Lantus (Bkc)) 25 units SC DAILY [facility] Last Admin: 07/24/18 09:14 Dose: 25 units Insulin Human Lispro (Humalog Kwikpen (Bkc)) 0 unit SC ACHS [facility]; Protocol Last Admin: 07/24/18 11:45 Dose: 6 units Magnesium Hydroxide (Milk Of Magnesia) 30 ml PO DAILY PRN PRN PRN Reason: Constipation Metoclopramide HCl (Reglan) 10 mg PO TIDCM [facility] Last Admin: 07/24/18 11:45 Dose: 10 mg Multivitamins (Multivitamin) 1 tablet PO DAILYCM [facility] Last Admin: 07/24/18 09:11 Dose: 1 tablet Senna/Docusate Sodium (Senokot-S, Rosalina-Colace) 1 tablet PO BID PRN PRN PRN Reason: Constipation Last Admin: 07/22/18 10:49 Dose: 1 tablet Simethicone (Mylicon) 80 mg PO TIDCM [facility] Last Admin: 07/24/18 11:45 Dose: 80 mg Sodium Chloride () 5 - 15 ml IV UD PRN PRN Reason: SALINE FLUSH Last Admin: 07/22/18 03:57 Dose: 10 ml Medical Necessity - Tobacco Use Smoking Status: Never smoker Tobacco Use: Non-smoker Assessment/Plan All Active Problems Sepsis (Acute) UTI (urinary tract infection) due to urinary indwelling catheter (Acute) Colon obstruction (Resolved) 1. Severe sepsis due to acute cystitis fever and leucocytosis have resolved remains on IV ceftriaxone urine cultured gram negative rods, possibly Pseudomonas sensitive to ceftriaxone blood cultures Providencia stuartii (1 out of 2), sensitive to ceftriaxone leucocytosis has trended down to 13.4 on IV ceftriaxone blood and urine cultures still pending 2. ANTONY: resolved. Cr down to 1.04 renal USG showed bilateral calculi of the kidneys with hydronephrosis and bilateral hydroureters, left more severe than right. decompressed urinary bladder with calculi suspected follows up with Dr Palm in [place] o.a of suprapubic catheter last renal USG from his urologist- 05/09: bilateral nonobstructing intrarenal calculi with increased renal echogenicity consistent with medical renal disease, no obstrution noted. will consult urology o/a of hydronephrosis 3. Bilateral hydronephrosis likely due to ureteric calculi as under 2. urology consulted 4. Diabetes mellitus on lantus 25IU daily ISS. Accuchecks ACHS 5. Neurogenic bladder s/p suprapubic catheter placement suprapubic catheter changed by urology to a size 18 Kisw[place]ili catheter stable 6. Multiple sclerosis: stAble 7. Hypertension: controlled. Lisinopril on hold on account of [place] I. IV hydralazine as needed 8. Abdominal distention: stable. having regular bowel movements. Will continue monitoring DVT prophylaxis: heparin Code Visit Inpatient E&M: 23834 [facility] Hosp L3
--- NOTE | 2018-07-24 12:16 | CT_ITS ---
STUDY: CT ABDOMEN AND PELVIS WITHOUT CONTRAST REASON FOR EXAM: Male, 53 years old. Hydronephrosis, sepsis. History of suprapubic catheter, diabetes, multiple sclerosis, neurogenic bladder. RADIATION DOSAGE (If Supplied By Facility): CTDIvol = ( 17.32 ) mGy, DLP = ( 934.88 ) mGycm TECHNIQUE: Transaxial images were obtained from the dome of the diaphragm to the symphysis pubis without oral contrast, and without intravenous contrast. Sagittal and coronal images were reconstructed. Individualized dose optimization techniques were used for this CT. COMPARISON: Ultrasound kidneys and bladder 07/22/2018. CT abdomen and pelvis 04/21/2016. FINDINGS: Body wall soft tissues: Suprapubic catheter bulb is positioned within the urinary bladder. Minimal flank edema. Osseous structures: Mild scoliosis. Inferior chest: Small bilateral layering pleural effusions with mild bibasilar atelectasis. Moderate sliding hiatal hernia containing a portion of the gastric fundus. Mild cardiomegaly. Hepatobiliary: Hepatomegaly, craniocaudal right liver 20 cm. Normal gallbladder and biliary tree. Pancreas: Moderate atrophy. Spleen: Upper limits of normal spleen, 12.2 cm. Adrenal glands: Normal. Urogenital: There are small nonobstructing calyceal calculi within each kidney, the largest bilaterally measuring about 5 mm. Is a small 5 x 3 mm calculus layering dependently within the right renal pelvis. There is bilateral hydronephrosis, grade 1 on the right, grade 2 on the left. There is a 4 mm calculus of the proximal right ureter, the ureter decompressed beyond that point. There is a formalin or calculus within the mid left ureter, a 5 mm calculus a few centimeters distal to this, the ureter mildly ectatic thereafter into the urinary bladder. There are small calcifications within the urinary bladder lumen, several, the largest measuring approximately 6 x 3 mm. There is circumferential thickening of wall the urinary bladder with indwelling suprapubic catheter appropriately positioned. There is mild prostatomegaly. Symmetrically thick and seminal vesicles. Induration of the fat surrounding the urinary bladder, base of the prostate and seminal vesicles which may reflect the presence of cystitis and/or prostatitis. Pelvic floor and sidewalls and retroperitoneum: No mass or adenopathy. Vasculature: No acute process. Stomach: No acute process. Small bowel and mesentery: No acute process. Large bowel: The appendix is partly visible and appears normal. The ascending colon is normal. There is gradually increased gaseous distention of large bowel through the transverse colon. There is mild circumferential thickening of wall the descending colon. There is a small amount of fluid in the left paracolic gutter. There is prominent gaseous distention of a high arching loop of sigmoid colon, traversing downward into a large rectosigmoid stool ball. The dilated stool filled rectosigmoid measures up to 21 cm in length, 7.9 cm in diameter, with circumferential thickening of the wall and inflammatory induration the surrounding fat suggesting the presence of stercoral colitis. Free fluid or free air: Small ascites, around the liver, spleen, and the left paracolic gutter. No free air. CT/Abdomen/Pelvis without Cont IMPRESSION: 1. Large rectosigmoid stool ball with features of stercoral colitis, contributing to obstipation within the proximal large bowel. 2. There may be mild inflammation of the descending colon as well. 3. Inflammatory induration in the fat surrounding the urinary bladder, prostate and seminal vesicles. Correlate clinically for any evidence of prostatitis/cystitis. Chronic indwelling suprapubic catheter. 4. Bilateral urolithiasis, retained calculi in the calyces, small calculi in the left renal collecting system, bilateral hydronephrosis with calculi along the course of each ureter. 5. Small bilateral pleural effusions. 6. Additional chronic findings are detailed within the body of the report. Electronically Signed: Toribio Lange MD at 17:09 EST Tel , Service support ,
--- NOTE | 2018-07-24 12:16 | CON.PCM_ITS ---
Reason for Consult Date of Consultation: 07/24/18 Reason for Consultation: Neurogenic bladder chronic suprapubic catheter new bilateral hydronephrosis History of Present Illness: The patient is a 53 year old male who was at a correction he has a chronic suprapubic catheter when he came in it was changed, I been consulted regarding the new finding of bilateral hydronephrosis on his recent ultrasound prior ultrasound did not have a hydronephrosis he does have a neurogenic bladder with a chronic suprapubic catheter which is changed about every month. He normally is followed by Dr. Bateman in [place]. Past Medical History Past Medical History (Chronic Problems): Chronic Problems Neurogenic bladder (Chronic) status post suprapubic catheter Depression (Chronic) Anxiety (Chronic) Vitamin D deficiency (Chronic) GERD (gastroesophageal reflux disease) (Chronic) DM type 1 (diabetes mellitus, type 1) (Chronic) Multiple sclerosis (Chronic) Allergies Penicillins Adverse Reaction (Verified 05/16/16 16:03) Unknown Home Medications: Ambulatory Orders Medication Instructions Recorded Ascorbic Acid [Vitamin C] 500 mg PO DAILY@0800 05/30/15 Atorvastatin Calcium [Lipitor] 10 mg PO QHS 05/30/15 Calcitriol [Rocaltrol] 0.25 mcg PO MOWEFR 05/30/15 Calcium Carbonate/Vitamin D3 1 each PO BID 05/30/15 [Calcium 600 + D Tablet] Glucagon,Human Recombinant 1 mg IM DAILY PRN PRN 05/30/15 [Glucagen] Magnesium Hydroxide [Milk Of 30 ml PO DAILY PRN PRN 05/30/15 Magnesia] Nitroglycerin [Nitrostat] 0.4 mg SUBLINGUAL Q5M PRN 05/30/15 Docusate Sodium [Colace] 100 mg PO BID 04/21/16 Guaifenesin [Diabetic Tussin Ex] 100 mg PO Q4H PRN PRN 04/21/16 Insulin Aspart [Novolog Flexpen] See Protocol SC PRN PRN 05/17/16 Insulin Aspart [Novolog Flexpen] See Protocol SC TIDCM 05/17/16 Acetic Acid 30 ml IR BID 02/03/17 Bisacodyl 10 mg RC PRN PRN 02/03/17 Dextrose [Glucose Gel] 15 gm PO PRN PRN 02/03/17 Insulin Detemir [Levemir] 25 unit SQ DAILY 02/03/17 Lisinopril [Zestril] 2.5 mg PO DAILY 02/03/17 Mag Hydrox/Aluminum Hyd/Simeth 30 ml PO Q6H PRN PRN 02/03/17 [Antacid Suspension] Metoclopramide [Reglan] 10 mg PO TIDCM 02/03/17 Multivitamin [Multiple Vitamins] 1 each PO DAILY 02/03/17 Sennosides/Docusate Sodium [Senna 1 each PO BID PRN 02/03/17 Plus Tablet] SimETHICONE [Mylicon] 80 mg PO TIDCM 02/03/17 Acetaminophen [Tylenol] 650 mg PO Q4H PRN PRN 07/22/18 Surgical History: - - Suprapubic urinary catheter Psychiatric History: No pertinent psych hx Lives: Snf Smoking Status: Never smoker Tobacco Use: Non-smoker - *Family History Maternal History Items: - - No history of multiple sclerosis Paternal History Items: - - Patient has confusion; likely baseline and family history could not be obtained from him. Review of Systems Constitutional: Denies: Chills, Fever, Weight Change HEENT: Denies: Head Aches, Sinus Congestion, Sinus Drainage Cardiovascular: Denies: Chest Pain, Palpitations Respiratory: Denies: Cough, Shortness of breath at rest, Sputum production Gastrointestinal: Denies: Abdominal Pain, Nausea, Vomiting Genitourinary: Denies: Dysuria Musculoskeletal: Denies: Joint Pain, Joint Tenderness Skin: Denies: Rash, Wounds Neurological: Denies: Numbness, Tingling, Focal weakness Psychiatric: Denies: Anxiety, Depression, Homicidal Ideations, Suicidal Ideations Hematologic/ Lymphatic: Denies: Easy Bruising, Easy Bleeding Physical Exam - Physical Exam Vital Signs Temp 98.2 F 07/24/18 09:10 Pulse 87 07/24/18 09:10 Resp 18 07/24/18 09:10 BP 110/69 07/24/18 09:10 Pulse Ox 98 07/24/18 09:10 Intake & Output 07/22/18 07/23/18 07/24/18 23:59 23:59 23:59 Intake Total 3118 / 3118 3545 / 3545 2671 / 2671 Output Total 900 / 900 4175 / 4175 2475 / 2475 Balance 2218 / 2218 -630 / -630 196 / 196 Weight: 79 kg 80.24 kg 80.1 kg Intake: Oral 500 / 500 600 / 600 520 / 520 IV fluid/meds 2618 / 2618 2945 / 2945 2151 / 2151 Output: Urine 900 / 900 4175 / 4175 2475 / 2475 Other: Number of times incontinent 2 Incontinent Amount Large Number of Bowel Movements 1 1 General: Alert HEENT: Atraumatic Oral: Moist Mucosa Neck: Supple Lungs: Normal air movement Cardiovascular: Regular Rhythm Abdomen: Bowel Sounds Present, Soft, - - SP tube in place Testicle: Right Normal, Left Normal Microbiology Past 72 Hours 07/21/18 21:14 Urine Culture - Preliminary Urine, Catheterized Pseudomonas aeroginosa Providencia stuartii 07/21/18 19:45 Blood Culture - Final Blood Culture (Wb) - Left Hand 07/21/18 18:55 Blood Culture - Preliminary Blood Culture (Wb) - Anticubital Right Providencia stuartii 07/22/18 11:00 Urine Culture - Preliminary Urine Catheter - Arizmendi GNR Poss Pseudomonas sp Gram negative milo Laboratory Tests Past 24 Hrs 07/24/18 07/24/18 05:48 05:48 WBC 10.3 RBC 3.75 L Hgb 11.0 L Hct 34.0 L MCV 90.7 MCH 29.3 MCHC 32.4 RDW 13.4 RDW Differential 43.0 Plt Count 133 L MPV 10.5 Immature Gran % (Auto) 0.200 Neut % (Auto) 83.8 H Lymph % (Auto) 3.9 L Sioux % (Auto) 10.7 H Eos % (Auto) 1.2 Baso % (Auto) 0.2 Absolute Neuts (auto) 8.7 H Absolute Lymphs (auto) 0.40 L Total Counted Not Reportable Sodium 142 Potassium 3.7 Chloride 109 H Carbon Dioxide 23.0 Anion Gap 10 BUN 22 H Creatinine 1.04 Estim Creat Clear Calc 81.30 Est GFR (MDRD) Af Amer 97 Est GFR (MDRD) Non-Af 80 BUN/Creatinine Ratio 21.2 H Glucose 172 H Calcium 7.9 L Assessment/Plan All Active Problems Sepsis (Acute) UTI (urinary tract infection) due to urinary indwelling catheter (Acute) Colon obstruction (Resolved) 53-year-old male presents to the hospital with an infection he has a chronic suprapubic catheter ultrasound with new hydronephrosis hydronephrosis etiologies were discussed with the patient including obstruction reflux tumor or stone I recommend we do a CT scan stone protocol to evaluate I think most likely cause of the hydronephrosis is probably can be a stone we will see what the CAT scan shows follow-up on the CAT scan.
--- NOTE | 2018-07-24 12:22 | PN_ITS ---
Subjective: Patient seen and examined. He feels well and has no complaints. He is eating well and feels well. He denies any fever, any chills, any cough or chest pain, any shortness of breath, any abdominal pain, any diarrhea or vomiting. Review of systems otherwise negative. Labs and vitals reviewed. Ultrasound done on account of [place] I showed bilateral hydronephrosis worse on the left than the right. Patient does follow-up with a urologist in [place] and his next appointment is October 07. This follow-up is for the suprapubic catheter redness is not clear whether he has been previously diagnosed with bilateral hydronephrosis. Vitals/I&O's: Vital Signs Temp Pulse Resp BP Pulse Ox 98.2 F 87 18 110/69 98 07/24/18 09:10 07/24/18 09:10 07/24/18 09:10 07/24/18 09:10 07/24/18 09:10 Oxygen Flow Rate (L/min) 1 Oxygen Delivery Method Room Air Weight: 176 lb 9.444 oz Body Mass Index (BMI) 26.4 Intake and Output for Last 24 Hours 07/22/18 07/23/18 07/24/18 23:59 23:59 23:59 Intake Total 3118 / 3118 3545 / 3545 2671 / 2671 Output Total 900 / 900 4175 / 4175 2475 / 2475 Balance 2218 / 2218 -630 / -630 196 / 196 General: Alert, Oriented x3, Cooperative, No apparent distress HEENT: Atraumatic, PERRLA, EOMI, Normocephalic Oral: Moist Mucosa Neck: Supple, No JVD, Negative Carotid Bruits Lungs: Clear to auscultation, Normal air movement, No rhonchi, No wheeze, No rales Cardiovascular: Regular rate, Regular Rhythm, Normal S1, Normal S2, No murmurs Abdomen: Bowel Sounds Present, Soft, Non Tender, No Hepato-splenomegaly, - - mildly distended, tympanitic to percussion Extremities: No clubbing, No cyanosis, No edema, Capillary Refill Less than 3 Seconds Skin: No rashes, No breakdown Musculoskeletal: No Tenderness to Palpation of Joints or Extremities Lymphatic: No Cervical, Supraclavicular, or Inguinal Adenopathy Neurological: Cranial nerves II-XII grossly intact, Neuro grossly intact, Motor Exam 5/5 strength throughout Psych/Mental Status: Normal Affect, Appropriate, Alert and oriented to time, place, person, mood and affect Microbiology Past 72 Hours 07/21/18 21:14 Urine, Catheterized Urine Culture - Preliminary Pseudomonas aeroginosa Danishncia stuartii 07/21/18 19:45 Blood Culture (Wb) - Left Hand Blood Culture - Final 07/21/18 18:55 Blood Culture (Wb) - Anticubital Right Blood Culture - Preliminary Providencia stuartii 07/22/18 11:00 Urine Catheter - Arizmendi Urine Culture - Preliminary GNR Poss Pseudomonas sp Gram negative milo Laboratory Results 07/23/18 16:28: POC Glucose 231 H 07/23/18 21:55: POC Glucose 307 H 07/24/18 05:48: WBC 10.3, RBC 3.75 L, Hgb 11.0 L, Hct 34.0 L, MCV 90.7, MCH 29.3, MCHC 32.4, RDW 13.4, RDW Differential 43.0, Plt Count 133 L, MPV 10.5, Immature Gran % (Auto) 0.200, Neut % (Auto) 83.8 H, Lymph % (Auto) 3.9 L, George % (Auto) 10.7 H, Eos % (Auto) 1.2, Baso % (Auto) 0.2, Absolute Neuts (auto) 8.7 H, Absolute Lymphs (auto) 0.40 L, Total Counted Not Reportable 07/24/18 05:48: Sodium 142, Potassium 3.7, Chloride 109 H, Carbon Dioxide 23.0, Anion Gap 10, BUN 22 H, Creatinine 1.04, Estim Creat Clear Calc 81.30, Est GFR (MDRD) Af Amer 97, Est GFR (MDRD) Non-Af 80, BUN/Creatinine Ratio 21.2 H, Glucose 172 H, Calcium 7.9 L 07/24/18 05:58: POC Glucose 171 H 07/24/18 11:44: POC Glucose 268 H Current Medications Acetaminophen (Tylenol) 650 mg PO Q6H PRN PRN PRN Reason: FEVER Last Admin: 07/22/18 05:54 Dose: 650 mg Al Hydroxide/Mg Hydroxide (Mylanta Ii) 30 ml PO Q6H PRN PRN PRN Reason: INDIGESTION Ascorbic Acid (Vitamin C) 500 mg PO DAILY@0800 [facility] Last Admin: 07/24/18 09:11 Dose: 500 mg Atorvastatin Calcium (Lipitor) 10 mg PO QHS [facility] Last Admin: 07/23/18 21:57 Dose: 10 mg Bisacodyl (Dulcolax) 10 mg RECTAL DAILY PRN PRN PRN Reason: Constipation Calcitriol (Rocaltrol) 0.25 mcg PO MoWeFr@1000 [facility] Last Admin: 07/24/18 09:11 Dose: 0.25 mcg Calcium/Vitamin D (Os-Phillip 500mg + D) 1 tablet PO BID [facility] Last Admin: 07/24/18 09:11 Dose: 1 tablet Dextrose (D50w Syringe) 0 gm IV X1 PRN; Protocol PRN Reason: Hypoglycemia Docusate Sodium (Colace) 100 mg PO BID [facility] Last Admin: 07/24/18 09:11 Dose: 100 mg Glucagon () 1 mg IM .X1 PRN PRN Reason: Hypoglycemia Guaifenesin (Robitussin) 5 ml PO Q4H PRN PRN PRN Reason: COUGH Heparin Sodium (Porcine) (Heparin Na) 5,000 unit SC Q8 [facility] Last Admin: 07/24/18 05:59 Dose: 5,000 unit Ceftriaxone Sodium (Rocephin) 1 gm in 50 mls @ 100 mls/hr IV Q24@2200 [facility] Last Admin: 07/23/18 21:57 Dose: 100 mls/hr Sodium Chloride () 250 mls @ 15 mls/hr IV .[id number] PRN PRN Reason: SALINE FLUSH Sodium Chloride () 1,000 mls @ 125 mls/hr IV .Q8H [facility] Last Admin: 07/24/18 06:22 Dose: 125 mls/hr Insulin Glargine (Lantus (Bkc)) 25 units SC DAILY [facility] Last Admin: 07/24/18 09:14 Dose: 25 units Insulin Human Lispro (Humalog Kwikpen (Bkc)) 0 unit SC ACHS [facility]; Protocol Last Admin: 07/24/18 11:45 Dose: 6 units Magnesium Hydroxide (Milk Of Magnesia) 30 ml PO DAILY PRN PRN PRN Reason: Constipation Metoclopramide HCl (Reglan) 10 mg PO TIDCM [facility] Last Admin: 07/24/18 11:45 Dose: 10 mg Multivitamins (Multivitamin) 1 tablet PO DAILYCM [facility] Last Admin: 07/24/18 09:11 Dose: 1 tablet Senna/Docusate Sodium (Senokot-S, Rosalina-Colace) 1 tablet PO BID PRN PRN PRN Reason: Constipation Last Admin: 07/22/18 10:49 Dose: 1 tablet Simethicone (Mylicon) 80 mg PO TIDCM [facility] Last Admin: 07/24/18 11:45 Dose: 80 mg Sodium Chloride () 5 - 15 ml IV UD PRN PRN Reason: SALINE FLUSH Last Admin: 07/22/18 03:57 Dose: 10 ml Medical Necessity - Tobacco Use Smoking Status: Never smoker Tobacco Use: Non-smoker Assessment/Plan All Active Problems Sepsis (Acute) UTI (urinary tract infection) due to urinary indwelling catheter (Acute) Colon obstruction (Resolved) 1. Severe sepsis due to acute cystitis * fever and leucocytosis have resolved * remains on IV ceftriaxone * urine cultured gram negative rods, possibly Pseudomonas sensitive to ceftriaxone * blood cultures Providencia stuartii (1 out of 2), sensitive to ceftriaxone * leucocytosis has trended down to 13.4 * on IV ceftriaxone * blood and urine cultures still pending * * 2. ANTONY: * resolved. Cr down to 1.04 * renal USG showed bilateral calculi of the kidneys with hydronephrosis and bilateral hydroureters, left more severe than right. decompressed urinary bladder with calculi suspected * follows up with Dr Palm in [place] o.a of suprapubic catheter * last renal USG from his urologist- 05/09: bilateral nonobstructing intrarenal calculi with increased renal echogenicity consistent with medical renal disease, no obstrution noted. * will consult urology o/a of hydronephrosis * 3. Bilateral hydronephrosis likely due to ureteric calculi * as under 2. * urology consulted * 4. Diabetes mellitus * on lantus 25IU daily * ISS. * Accuchecks ACHS * 5. Neurogenic bladder s/p suprapubic catheter placement * suprapubic catheter changed by urology to a size 18 Albanian catheter * stable * 6. Multiple sclerosis: stAble 7. Hypertension: controlled. Lisinopril on hold on account of [place] I. IV hydralazine as needed 8. Abdominal distention: stable. having regular bowel movements. Will continue monitoring DVT prophylaxis: heparin Code Visit Inpatient E&M: 51092 Subs Hosp L3
[2018-07-24] MEDS: 0.9% NaCl Peripheral Flush Adult/Peds IV (13:46)
[2018-07-24 16:50] LABS: Bedside Glucose 225 mg/dL (70-110)
--- NOTE | 2018-07-24 17:36 | CASEMGMT ---
Social Work Note SW attempted to reach pt's POA and Brother Adama. Adama didn't answer, SW provided message for Adama to give this worker a call back when he is able to do so to confirm discharge plans. Plan: Return to [facility] once medically cleared Dilma Meadows MACHINE STEAK TENDERIZER, SALESPERSON SHOES
[2018-07-24] MEDS: Atorvastatin Calcium 10 MG Tablet PO (20:55)
[2018-07-24] MEDS: Ceftriaxone 1 GM/50 ML BAG IV (20:56)
[2018-07-24 22:36] LABS: Bedside Glucose 356 mg/dL (70-110)
[2018-07-25 05:08] VITALS: BP 109/60; PULSE 68; RESP 18; TEMP 36.3; O2SAT 98
[2018-07-25] MEDS: Heparin Injection (Vial) 5,000 UNIT/ML VIAL 5000 UNIT SC (05:16)
[2018-07-25 06:27] LABS: Absolute Lymphocyte Count 0.59 X10^3/ul (0.83-4.51); Absolute Neutrophil Count 6.9 X10^3/uL (2.0-7.7); Basophil# 0.02 X10^3/uL; Basophil% 0.2 % (0-1); Eosinophil# 0.11 X10^3/uL; Eosinophils% 1.2 % (0-5); Hematocrit 33.3 % (40-54); Hemoglobin 11.1 g/dl (13.0-16.5); Lymphocyte # 0.59 X10^3/ul (4.0); Lymphocyte % 6.7 % (19-41); Mean Corp Hgb Conc 33.3 g/gl (32-36); Mean Corpuscular Hgb 29.4 pg (27.0-32.0); Mean Corpuscular Volume 88.1 fL (80-94); Mean Platelet Vol. 10.6 fl (6.2-12.0); Monocyte% 13.6 % (0-10); Neutrophil # 6.89 X10^3/uL (2.7-7.7); Neutrophil % 78.1 % (47-70); Platelet Count 116 K/mm3 (150-450); RBC Distribution Width CV 13.6 % (11.6-14.6); RBC Distribution Width SD 44.1 fl (35.1-43.9); Red Blood Count 3.78 M/mm3 (4.6-6.2); White Blood Count 8.8 K/mm3 (4.4-11.0)
[2018-07-25 06:28] LABS: Differential Indicated SCAN CRITERIA MET; POSITIVE COUNT NO; POSITIVE DIFFERENTIAL YES; POSITIVE MORPHOLOGY NO
[2018-07-25 06:35] LABS: Anion Gap 7 (5-15); BUN 13 mg/dL (7-18); BUN/Creat Ratio 15.3 RATIO (10-20); Calcium,Total 7.6 mg/dL (8.5-10.1); Chloride 111 mmol/L (98-107); Creatinine, Serum 0.85 mg/dL (0.70-1.30); EST Glomerular Filtration Rate 101 mL/min (>60); Est Glom Filt Rate - Afr Amer 123 mL/min (>60); Estimated Creatinine Clearance 99.47 ml/min; Glucose 87 mg/dL (74-106); Potassium 3.5 mmol/L (3.5-5.1); Sodium Level 140 mmol/L (136-145)
[2018-07-25] MEDS: 0.9% Normal Saline 1,000 ML 125 ML IV ×2 (06:37)
[2018-07-25 06:55] LABS: Bedside Glucose 84 mg/dL (70-110)
[2018-07-25 08:38] VITALS: O2SAT 96
[2018-07-25] MEDS: Multivitamins,Therapeutic Tablet 1 TABLET PO (09:37)
[2018-07-25] MEDS: Metoclopramide 10 MG Tablet PO ×2 (09:38→12:11)
[2018-07-25] MEDS: Docusate Sodium 100 MG Capsule PO (09:38)
[2018-07-25] MEDS: Ascorbic Acid 500 MG Tablet PO (09:38)
[2018-07-25] MEDS: Calcium Carb/Vitamin D 1 TABLET Tablet PO (09:39)
--- NOTE | 2018-07-25 10:53 | PCM.TXEXTCAR ---
- Diet 07/21/18 23:36 Diet: Cardiac/Low Cholesterol Food consistency:: Regular Liquid Consistency:: Regular/Thin - Routine Orders/Code Status Enema Type: Fleetz Enema Frequency: Daily PRN Suppository Type: Dulcolax 10mg Suppository Frequency: Daily PRN O2 Frequency: PRN Keep PO Greater than or Equal to (%): 92 - Wound(s) rt heel Wound Type: Pressure Injury right franco Wound Type: Abrasion - Therapies Weight Bearing: Weight bearing as tolerated Physical Therapy: Eval and Treat Occupational Therapy: Eval and Treat - Allergies/Procedures Done in Hospital Allergies/Adverse Reactions: Allergies Penicillins Adverse Reaction (Verified 05/16/16 16:03) Unknown Procedures: None - Type of Care/Length of Stay Estimated LOS: More Than 30 Days Type of Care Needed: Skilled Rehab Potential: Fair Prognosis: Fair - Additional Orders/Day of Discharge Day of Discharge: 07/25/18 - Dietary and Speech Recommendations Dietitian Recommendations/Changes: Rec diet change to 1800 reyna Cardiac d/t pmhx and BMI - Follow Up Care Primary Care Physician: Michael Echavarria MD [Primary Care Provider] - Please follow up with your Primary Care Physician in: one week Please Follow Up With: Be Fortune MD When: 1-2 weeks
[2018-07-25 11:00] VITALS: BP 128/75; PULSE 80; RESP 18; TEMP 36.7; O2SAT 96
[2018-07-25 11:41] LABS: Bedside Glucose 337 mg/dL (70-110)
--- NOTE | 2018-07-25 12:00 | CASEMGMT ---
Social Work Note Pt is being discharged today back to [facility]. CLAY faxed completed discharge paperwork to [facility] including transfer to extended care facility, signed medication list and any scripts. Originals in SNF folder and copy on pt's chart. Script for Cefdinir (Omn[employer]) was faxed. CLAY met with pt. Pt states that he would like to be transported via wheelchair van through [facility]. Teresita, medical unit secretary, informed this worker that [facility] had called requesting transportation to be set up for 2:30pm or later. CLAY placed a call to [facility] and set up transportation via wheelchair van for 2:30pm. Transportation form on SNF folder and copy on pt's chart. CLAY placed a call to pt's parents and attempted to reach pt's RADHA Galan to update on discharge. Adama has same number listed as pt's parents. CLAY spoke with pt's mom Lorrie and updated her on pt's discharge and transportation time. CLAY updated RN Corinna, pt and placed a call to [facility] to update on transportation time. HENS is not needed as pt is from manager terminal side at [facility] and returned to shelter side at [facility]. Plan: Pt to discharge back to [facility] today for manager terminal care with [facility] transporting via wheelchair van at 2:30pm Dilma CHACON, SPECIAL EDUCATION ITINERANT TEACHER
[2018-07-25] MEDS: Insulin Lispro 100 UNIT/ML INSULN.PEN SC (12:11)
--- NOTE | 2018-07-25 13:18 | PCM.DC.SUM ---
Discharge Date and Diagnosis Date of Admission: 07/21/18 Date of Discharge: 07/25/18 - Primary Discharge Diagnosis severe sepsis due to UTI ANTONY - Secondary Discharge Diagnosis Chronic Problems Neurogenic bladder (Chronic) status post suprapubic catheter Depression (Chronic) Anxiety (Chronic) Vitamin D deficiency (Chronic) GERD (gastroesophageal reflux disease) (Chronic) DM type 1 (diabetes mellitus, type 1) (Chronic) Multiple sclerosis (Chronic) Hospital Course and Treatment Imaging Results: Diagnostic Data Chest X-Ray 07/21/18 19:09 IMPRESSION: Clear lungs. Multiple distended loops of bowel in the upper abdomen with air superimposed beneath the right hemidiaphragm. It is more likely that this is within a distended bowel lumen rather than free air. The study dated 02/03/2017 had a similar appearance. However, if there is concern for free air, further evaluation with an abdominal CT is recommended. Electronically Signed: Manny Rosas, at 20:32 EST Tel , Service support , Renal Ultrasound 07/22/18 09:59 IMPRESSION: Calculi are noted of the kidneys with hydronephrosis and bilateral hydroureters, left more severe than right. Decompressed urinary bladder with calculi suspected. Electronically Signed: Daryl Herman DO at 18:07 EST Tel [phone], Service support , Abdomen/Pelvis CT 07/24/18 12:16 IMPRESSION: 1. Large rectosigmoid stool ball with features of stercoral colitis, contributing to obstipation within the proximal large bowel. 2. There may be mild inflammation of the descending colon as well. 3. Inflammatory induration in the fat surrounding the urinary bladder, prostate and seminal vesicles. Correlate clinically for any evidence of prostatitis/cystitis. Chronic indwelling suprapubic catheter. 4. Bilateral urolithiasis, retained calculi in the calyces, small calculi in the left renal collecting system, bilateral hydronephrosis with calculi along the course of each ureter. 5. Small bilateral pleural effusions. 6. Additional chronic findings are detailed within the body of the report. Electronically Signed: Toribio Lange MD at 17:09 EST Tel , Service support , urology Operations: None Procedures: None Summary of Care Provided: The patient is a 53 year old M with a history significant for diabetes mellitus, multiple sclerosis and indwelling suprapubic catheter due to neurogenic bladder. [facility] was admitted from his [facility] with a complaint of fever; he was found to be hypotensive on admission with associated tachycardia and leukocytosis. Creatinine was also elevated and lactic acid was elevated. UA was indicated of UTI. He was admitted and managed for severe sepsis due to UTI. He was started on IV antibiotics and blood and urine cultures were obtained. His suprapubic catheter was noted to have leakage of urine around the catheter and so urology was consulted and catheter was changed to a size 18 Spanish suprapubic catheter. On account of worsening of creatinine, renal ultrasound was obtained which showed bilateral hydronephrosis worse on the left than the right. He also had nonobstructing ureteric and renal calculi. Patient's temperature trended down and fever resolved and leukocytosis, tachycardia and tachypnea also resolved. And associated hypotension and tachycardia. Lactic acidosis resolved. Creatinine gradually trended down to normal with initiation of IV fluids. Previous renal ultrasound(05/09) by outside urologist was reviewed which did not show hydronephrosis at that time. Urology reviewed patient on account of bilateral hydronephrosis but indicated conservative managements now on account of nonobstructing calculi. Patient remained stable and was discharged back to his [facility] on 07/25/2018. He is to follow-up with his primary care doctor and urologist. He was discharged with a prescription for oral cefdinir for 5 days. Patient seen and examined prior to discharge. He had no complaints and felt well. He denied any fever, any chills, any cough or chest pain, shortness of breath, abdominal pain, any diarrhea vomiting. He was eager to be discharged back to his [facility]. 12 point review of systems otherwise negative. Labs and vitals reviewed. Home medications reviewed and reconciled. On examination Vitals: Vital Signs Height 5 ft 8 in Weight: 174 lb 1.6 oz Weight in Pounds 174.1 lbs Pulse Ox 96 Temperature 98.1 F Pulse Rate 80 Respiratory Rate 18 Blood Pressure [BP] 93/62 Blood Pressure 128/75 Blood Pressure Position [BP] Semi-Fowlers Blood Pressure Position Semi-Fowlers General: Alert, Oriented x3, Cooperative, No apparent distress HEENT: Atraumatic, PERRLA, EOMI, Normocephalic Oral: Moist Mucosa Neck: Supple, No JVD, Negative Carotid Bruits Lungs: Clear to auscultation, Normal air movement, No rhonchi, No wheeze, No rales Cardiovascular: Regular rate, Regular Rhythm, Normal S1, Normal S2, No murmurs Abdomen: Bowel Sounds Present, Soft, Non Tender, No Hepato-splenomegaly, - - mildly distended, tympanitic to percussion Extremities: No clubbing, No cyanosis, No edema, Capillary Refill Less than 3 Seconds Skin: No rashes, No breakdown Musculoskeletal: No Tenderness to Palpation of Joints or Extremities Lymphatic: No Cervical, Supraclavicular, or Inguinal Adenopathy Neurological: Cranial nerves II-XII grossly intact, Neuro grossly intact, Motor Exam 5/5 strength throughout Psych/Mental Status: Normal Affect, Appropriate, Alert and oriented to time, place, person, mood and affect Plan as stated above. He is to continue with his laxatives for constipation. [] - Physical Exam Vital Signs Temp Pulse Resp BP Pulse Ox 98.1 F 80 18 128/75 H 96 07/25/18 11:00 07/25/18 11:00 07/25/18 11:00 07/25/18 11:00 07/25/18 11:00 Oxygen Flow Rate (L/min) 1 Oxygen Delivery Method Room Air Weight: 174 lb 1.6 oz Body Mass Index (BMI) 26.4 Intake and Output for Last 24 Hours 07/23/18 07/24/18 07/25/18 23:59 23:59 23:59 Intake Total 3545 / 3545 3757 / 3757 2685 / 2685 Output Total 4175 / 4175 3475 / 3475 1999 Balance -630 / -630 282 / 282 685 / 685 Microbiology Past 72 Hours 07/21/18 18:55 Blood Culture - Final Blood Culture (Wb) - Anticubital Right Providencia stuartii 07/22/18 11:00 Urine Culture - Final Urine Catheter - Arizmendi Pseudomonas aeroginosa Providencia stuartii 07/21/18 21:14 Urine Culture - Final Urine, Catheterized Pseudomonas aeroginosa Danishncia stuartii 07/21/18 19:45 Blood Culture - Final Blood Culture (Wb) - Left Hand Laboratory Tests Past 24 Hrs 07/25/18 07/25/18 05:36 05:36 WBC 8.8 RBC 3.78 L Hgb 11.1 L Hct 33.3 L MCV 88.1 MCH 29.4 MCHC 33.3 RDW 13.6 RDW Differential 44.1 H Plt Count 116 L MPV 10.6 Immature Gran % (Auto) 0.200 Neut % (Auto) 78.1 H Lymph % (Auto) 6.7 L [place] % (Auto) 13.6 H Eos % (Auto) 1.2 Baso % (Auto) 0.2 Absolute Neuts (auto) 6.9 Absolute Lymphs (auto) 0.59 L Total Counted Not Reportable Sodium 140 Potassium 3.5 Chloride 111 H Carbon Dioxide 22.0 Anion Gap 7 BUN 13 Creatinine 0.85 Estim Creat Clear Calc 99.47 Est GFR (MDRD) Af Amer 123 Est GFR (MDRD) Non-Af 101 BUN/Creatinine Ratio 15.3 Glucose 87 Calcium 7.6 L POC Glucose 07/25/18 07/25/18 07/24/18 11:31 06:35 20:53 POC Glucose 337 H 84 356 H 07/24/18 16:40 POC Glucose 225 H Discharge Diet: Low fat/ Low Cholesterol Weight Bearing Status: Weight bearing as tolerated Call your doctor if you observe: Fever of 101 or Higher Home Medications: Medications to take at Discharge Ascorbic Acid [Vitamin C] 500 mg PO DAILY@0800 05/30/15 Atorvastatin Calcium [Lipitor] 10 mg PO QHS 05/30/15 Calcitriol [Rocaltrol] 0.25 mcg PO MOWEFR 05/30/15 Calcium Carbonate/Vitamin D3 [Calcium 600 + D Tablet] 1 each PO BID 05/30/15 Glucagon,Human Recombinant [Glucagen] 1 mg IM DAILY PRN PRN 05/30/15 Magnesium Hydroxide [Milk Of Magnesia] 30 ml PO DAILY PRN PRN 05/30/15 Nitroglycerin [Nitrostat] 0.4 mg SUBLINGUAL Q5M PRN 05/30/15 Docusate Sodium [Colace] 100 mg PO BID 04/21/16 Guaifenesin [Diabetic Tussin Ex] 100 mg PO Q4H PRN PRN 04/21/16 Insulin Aspart [Novolog Flexpen] See Protocol SC PRN PRN 05/17/16 Insulin Aspart [Novolog Flexpen] See Protocol SC TIDCM 05/17/16 Acetic Acid 30 ml IR BID 02/03/17 Bisacodyl 10 mg RC PRN PRN 02/03/17 Dextrose [Glucose Gel] 15 gm PO PRN PRN 02/03/17 Insulin Detemir [Levemir] 25 unit SQ DAILY 02/03/17 Lisinopril [Zestril] 2.5 mg PO DAILY 02/03/17 Mag Hydrox/Aluminum Hyd/Simeth [Antacid Suspension] 30 ml PO Q6H PRN PRN 02/03/17 Metoclopramide [Reglan] 10 mg PO TIDCM 02/03/17 Multivitamin [Multiple Vitamins] 1 each PO DAILY 02/03/17 Sennosides/Docusate Sodium [Senna Plus Tablet] 1 each PO BID PRN 02/03/17 SimETHICONE [Mylicon] 80 mg PO TIDCM 02/03/17 Acetaminophen [Tylenol] 650 mg PO Q4H PRN PRN 07/22/18 Cefdinir [Omnicef [equiv]] 300 mg PO Q12H 5 Days #10 cap 07/25/18 Following Prescrptions Were Given to Patient: Cefdinir [Omnicef [equiv]] 300 mg PO Q12H 5 Days #10 cap Primary Care Physician: Michael Echavarria MD [Primary Care Provider] - Please follow up with your Primary Care Physician in: one week Please Follow Up With: Be Fortune MD When: 1-2 weeks Disposition: Care Home facility Minutes spent on discharge:: 40 Patient Condition:: Stable Medical Necessity - Tobacco Use Smoking Status: Never smoker Tobacco Use: Non-smoker Meaningful Use Info Meaningful Use Diagnoses (Choose all that apply): None applicable Code Visit Inpatient E&M: 47021 Disch Hosp
--- NOTE | 2018-07-25 13:25 | DS.PCM_ITS ---
Discharge Date and Diagnosis Date of Admission: 07/21/18 Date of Discharge: 07/25/18 - Primary Discharge Diagnosis severe sepsis due to UTI ANTONY - Secondary Discharge Diagnosis Chronic Problems Neurogenic bladder (Chronic) status post suprapubic catheter Depression (Chronic) Anxiety (Chronic) Vitamin D deficiency (Chronic) GERD (gastroesophageal reflux disease) (Chronic) DM type 1 (diabetes mellitus, type 1) (Chronic) Multiple sclerosis (Chronic) Hospital Course and Treatment Imaging Results: Diagnostic Data Chest X-Ray 07/21/18 19:09 IMPRESSION: Clear lungs. Multiple distended loops of bowel in the upper abdomen with air superimposed beneath the right hemidiaphragm. It is more likely that this is within a distended bowel lumen rather than free air. The study dated 02/03/2017 had a similar appearance. However, if there is concern for free air, further evaluation with an abdominal CT is recommended. Electronically Signed: Manny Rosas, at 20:32 EST Tel , Service support , Renal Ultrasound 07/22/18 09:59 IMPRESSION: Calculi are noted of the kidneys with hydronephrosis and bilateral hydroureters, left more severe than right. Decompressed urinary bladder with calculi suspected. Electronically Signed: Daryl Herman DO at 18:07 EST Tel [phone], Service support , Abdomen/Pelvis CT 07/24/18 12:16 IMPRESSION: 1. Large rectosigmoid stool ball with features of stercoral colitis, contributing to obstipation within the proximal large bowel. 2. There may be mild inflammation of the descending colon as well. 3. Inflammatory induration in the fat surrounding the urinary bladder, prostate and seminal vesicles. Correlate clinically for any evidence of prostatitis/cystitis. Chronic indwelling suprapubic catheter. 4. Bilateral urolithiasis, retained calculi in the calyces, small calculi in the left renal collecting system, bilateral hydronephrosis with calculi along the course of each ureter. 5. Small bilateral pleural effusions. 6. Additional chronic findings are detailed within the body of the report. Electronically Signed: Toribio Lange MD at 17:09 EST Tel , Service support , urology Operations: None Procedures: None Summary of Care Provided: The patient is a 53 year old M with a history significant for diabetes mellitus, multiple sclerosis and indwelling suprapubic catheter due to neurogenic bladder. He was admitted from his shelter with a complaint of fever; he was found to be hypotensive on admission with associated tachycardia and leukocytosis. Creatinine was also elevated and lactic acid was elevated. UA was indicated of UTI. He was admitted and managed for severe sepsis due to UTI. He was started on IV antibiotics and blood and urine cultures were obtained. His suprapubic catheter was noted to have leakage of urine around the catheter and so urology was consulted and catheter was changed to a size 18 Polish suprapubic catheter. On account of worsening of creatinine, renal ultrasound was obtained which showed bilateral hydronephrosis worse on the left than the right. He also had nonobstructing ureteric and renal calculi. Patient's temperature trended down and fever resolved and leukocytosis, tachycardia and tachypnea also resolved. And associated hypotension and tachycardia. Lactic acidosis resolved. Creatinine gradually trended down to normal with initiation of IV fluids. Previous renal ultrasound(05/09) by outside urologist was reviewed which did not show hydronephrosis at that time. Urology reviewed patient on account of bilateral hydronephrosis but indicated conservative managements now on account of nonobstructing calculi. Patient remained stable and was discharged back to his shelter on 07/25/2018. He is to follow-up with his primary care doctor and urologist. He was discharged with a prescription for oral cefdinir for 5 days. Patient seen and examined prior to discharge. He had no complaints and felt well. He denied any fever, any chills, any cough or chest pain, shortness of breath, abdominal pain, any diarrhea vomiting. He was eager to be discharged back to his shelter. 12 point review of systems otherwise negative. Labs and vitals reviewed. Home medications reviewed and reconciled. On examination Vitals: Vital Signs Height 5 ft 8 in Weight: 174 lb 1.6 oz Weight in Pounds 174.1 lbs Pulse Ox 96 Temperature 98.1 F Pulse Rate 80 Respiratory Rate 18 Blood Pressure [BP] 93/62 Blood Pressure 128/75 Blood Pressure Position [BP] Semi-Fowlers Blood Pressure Position Semi-Fowlers General: Alert, Oriented x3, Cooperative, No apparent distress HEENT: Atraumatic, PERRLA, EOMI, Normocephalic Oral: Moist Mucosa Neck: Supple, No JVD, Negative Carotid Bruits Lungs: Clear to auscultation, Normal air movement, No rhonchi, No wheeze, No rales Cardiovascular: Regular rate, Regular Rhythm, Normal S1, Normal S2, No murmurs Abdomen: Bowel Sounds Present, Soft, Non Tender, No Hepato-splenomegaly, - - mildly distended, tympanitic to percussion Extremities: No clubbing, No cyanosis, No edema, Capillary Refill Less than 3 Seconds Skin: No rashes, No breakdown Musculoskeletal: No Tenderness to Palpation of Joints or Extremities Lymphatic: No Cervical, Supraclavicular, or Inguinal Adenopathy Neurological: Cranial nerves II-XII grossly intact, Neuro grossly intact, Motor Exam 5/5 strength throughout Psych/Mental Status: Normal Affect, Appropriate, Alert and oriented to time, place, person, mood and affect Plan as stated above. He is to continue with his laxatives for constipation. [] - Physical Exam Vital Signs Temp Pulse Resp BP Pulse Ox 98.1 F 80 18 128/75 H 96 07/25/18 11:00 07/25/18 11:00 07/25/18 11:00 07/25/18 11:00 07/25/18 11:00 Oxygen Flow Rate (L/min) 1 Oxygen Delivery Method Room Air Weight: 174 lb 1.6 oz Body Mass Index (BMI) 26.4 Intake and Output for Last 24 Hours 07/23/18 07/24/18 07/25/18 23:59 23:59 23:59 Intake Total 3545 / 3545 3757 / 3757 2685 / 2685 Output Total 4175 / 4175 3475 / 3475 1999 Balance -630 / -630 282 / 282 685 / 685 Microbiology Past 72 Hours 07/21/18 18:55 Blood Culture - Final Blood Culture (Wb) - Anticubital Right Providencia stuartii 07/22/18 11:00 Urine Culture - Final Urine Catheter - Arizmendi Pseudomonas aeroginosa Providencia stuartii 07/21/18 21:14 Urine Culture - Final Urine, Catheterized Pseudomonas aeroginosa Danishncia stuartii 07/21/18 19:45 Blood Culture - Final Blood Culture (Wb) - Left Hand Laboratory Tests Past 24 Hrs 07/25/18 07/25/18 05:36 05:36 WBC 8.8 RBC 3.78 L Hgb 11.1 L Hct 33.3 L MCV 88.1 MCH 29.4 MCHC 33.3 RDW 13.6 RDW Differential 44.1 H Plt Count 116 L MPV 10.6 Immature Gran % (Auto) 0.200 Neut % (Auto) 78.1 H Lymph % (Auto) 6.7 L [place] % (Auto) 13.6 H Eos % (Auto) 1.2 Baso % (Auto) 0.2 Absolute Neuts (auto) 6.9 Absolute Lymphs (auto) 0.59 L Total Counted Not Reportable Sodium 140 Potassium 3.5 Chloride 111 H Carbon Dioxide 22.0 Anion Gap 7 BUN 13 Creatinine 0.85 Estim Creat Clear Calc 99.47 Est GFR (MDRD) Af Amer 123 Est GFR (MDRD) Non-Af 101 BUN/Creatinine Ratio 15.3 Glucose 87 Calcium 7.6 L POC Glucose 07/25/18 07/25/18 07/24/18 11:31 06:35 20:53 POC Glucose 337 H 84 356 H 07/24/18 16:40 POC Glucose 225 H Discharge Diet: Low fat/ Low Cholesterol Weight Bearing Status: Weight bearing as tolerated Call your doctor if you observe: Fever of 101 or Higher Home Medications: Medications to take at Discharge Ascorbic Acid [Vitamin C] 500 mg PO DAILY@0800 05/30/15 Atorvastatin Calcium [Lipitor] 10 mg PO QHS 05/30/15 Calcitriol [Rocaltrol] 0.25 mcg PO MOWEFR 05/30/15 Calcium Carbonate/Vitamin D3 [Calcium 600 + D Tablet] 1 each PO BID 05/30/15 Glucagon,Human Recombinant [Glucagen] 1 mg IM DAILY PRN PRN 05/30/15 Magnesium Hydroxide [Milk Of Magnesia] 30 ml PO DAILY PRN PRN 05/30/15 Nitroglycerin [Nitrostat] 0.4 mg SUBLINGUAL Q5M PRN 05/30/15 Docusate Sodium [Colace] 100 mg PO BID 04/21/16 Guaifenesin [Diabetic Tussin Ex] 100 mg PO Q4H PRN PRN 04/21/16 Insulin Aspart [Novolog Flexpen] See Protocol SC PRN PRN 05/17/16 Insulin Aspart [Novolog Flexpen] See Protocol SC TIDCM 05/17/16 Acetic Acid 30 ml IR BID 02/03/17 Bisacodyl 10 mg RC PRN PRN 02/03/17 Dextrose [Glucose Gel] 15 gm PO PRN PRN 02/03/17 Insulin Detemir [Levemir] 25 unit SQ DAILY 02/03/17 Lisinopril [Zestril] 2.5 mg PO DAILY 02/03/17 Mag Hydrox/Aluminum Hyd/Simeth [Antacid Suspension] 30 ml PO Q6H PRN PRN 02/03/17 Metoclopramide [Reglan] 10 mg PO TIDCM 02/03/17 Multivitamin [Multiple Vitamins] 1 each PO DAILY 02/03/17 Sennosides/Docusate Sodium [Senna Plus Tablet] 1 each PO BID PRN 02/03/17 SimETHICONE [Mylicon] 80 mg PO TIDCM 02/03/17 Acetaminophen [Tylenol] 650 mg PO Q4H PRN PRN 07/22/18 Cefdinir [Omnicef [equiv]] 300 mg PO Q12H 5 Days #10 cap 07/25/18 Following Prescrptions Were Given to Patient: Cefdinir [Omnicef [equiv]] 300 mg PO Q12H 5 Days #10 cap Primary Care Physician: Michael Echavarria MD [Primary Care Provider] - Please follow up with your Primary Care Physician in: one week Please Follow Up With: Be Fortune MD When: 1-2 weeks Disposition: Senior Living facility Minutes spent on discharge:: 40 Patient Condition:: Stable Medical Necessity - Tobacco Use Smoking Status: Never smoker Tobacco Use: Non-smoker Meaningful Use Info Meaningful Use Diagnoses (Choose all that apply): None applicable Code Visit Inpatient E&M: 19751 Disch Hosp
== END 2018-07-25 14:38 | disposition skilled nursing facility (03) | DRG 698 ==
LOC: ED 19:06 → ICU 22:06 → MS3 07-24 06:53 → ICU 07-24 10:14
PROVIDERS: Admitting Provider Hospitalist; Emergency Provider Emergency Medicine; Family Provider Family Medicine; PCP Family Medicine; Visit Provider Student in an Organized Health Care Education/Training Program
DX: T83.518A Infection and inflammatory reaction due to other urinary catheter, initial encounter (principal); A41.9 Sepsis, unspecified organism; R65.20 Severe sepsis without septic shock; N30.00 Acute cystitis without hematuria; N20.2 Calculus of kidney with calculus of ureter; N17.9 Acute kidney failure, unspecified; E87.2 Acidosis; N13.30 Unspecified hydronephrosis; G35 Multiple sclerosis; N31.9 Neuromuscular dysfunction of bladder, unspecified; E55.9 Vitamin D deficiency, unspecified; K21.9 Gastro-esophageal reflux disease without esophagitis; F32.9 Major depressive disorder, single episode, unspecified; F41.9 Anxiety disorder, unspecified; E10.9 Type 1 diabetes mellitus without complications; Z66 Do not resuscitate; I10 Essential (primary) hypertension; Z79.4 Long term (current) use of insulin; Z79.899 Other long term (current) drug therapy
CPT/HCPCS: 36415; 71045; 74176; 76770; 80048; 80053; 81001; 82570; 82962; 83605; 84300; 85025; 85027; 85610; 85730; 87040; 87077; 87086; 87088; 87184; 87186; 93005; 94667; 97162; 97165; 97530; 97535; 97802; 99251; 99285; J7030; A4216; G0463

== ENCOUNTER 2019-03-09 15:08 | Inpatient (IN) | payer MEDICARE, SELFPAY ==
[2018-07-21 23:56] VITALS: BMI 26.4
[2019-03-09] VITALS (8 sets, daily range): BP systolic 95–119; BP diastolic 69–83; PULSE 109–148; RESP 16–26; TEMP 36.8–39.6; O2SAT 93–96; BMI 24.0; BMI 23.8; BMI 23.9
--- NOTE | 2019-03-09 15:10 | EKG12_ITS ---
Test Reason : SVT Blood Pressure : / mmHG Vent. Rate : 147 BPM Atrial Rate : 147 BPM P-R Int : 134 ms QRS Dur : 080 ms QT Int : 258 ms P-R-T Axes : 025 017 -13 degrees QTc Int : 403 [address]cardia Nonspecific ST abnormality Abnormal ECG Confirmed by LASHAWN ONEAL, JULIANNA ([id number]), editorial clerk DEEPIKA PLAZA ([id number]) on 03/11/2019 1:33:35 PM Referred By: DAHLIA Confirmed By:JULIANNA HARDIN MD
--- NOTE | 2019-03-09 15:11 | CT_ITS ---
STUDY: CT BRAIN WITHOUT CONTRAST REASON FOR EXAM: Male, 54 years old. Fever, slurred speech RADIATION DOSAGE (If Supplied By Facility): CTDIvol = ( 44.99 ) mGy, DLP = ( 846.73 ) mGycm TECHNIQUE: Transaxial CT imaging of the brain was performed without administration of intravenous contrast material. Individualized dose optimization techniques were used for this CT. COMPARISON: No relevant priors. FINDINGS: Normal soft tissue structures. Normal calvarium. There is moderate cerebral atrophy with widening of the extra-axial spaces and ventricular dilatation. There are areas of decreased attenuation within the white matter tracts of the supratentorial brain, consistent with microvascular disease changes. Normal basal ganglia and thalami. Normal brainstem. There is moderate cerebellar atrophy. There is no intracranial hemorrhage. There are no findings of an acute ischemic infarction. Normal visualized paranasal sinuses. CT/Brain/Head without Contrast IMPRESSION: 1. No acute intracranial hemorrhage or mass effect. 2. Central parenchymal volume loss. White matter changes that are nonspecific but most commonly associated with chronic small vessel ischemic disease. Electronically Signed: Lorenzo Talbot MD ([place]) at 16:27 EDT , Service support ,
--- NOTE | 2019-03-09 15:15 | RAD_ITS ---
STUDY: X-RAY CHEST REASON FOR EXAM: Male, 54 years old. Fever with slurred speech and weakness TECHNIQUE: AP COMPARISON: 07/21/2018 FINDINGS: EKG leads project over the chest. Lungs are hypoinflated. There is no demonstrated pleural abnormality. Normal size heart. Normal mediastinum and alden. Normal visualized pulmonary arteries. Normal visualized aortic arch and descending thoracic aorta. Normal visualized thoracic spine. Normal visualized ribs, clavicles, and shoulders. Significant gaseous distention of colon and bowel in the upper abdomen similar since the prior study. RAD/Chest 1 View (Portable) IMPRESSION: 1. Hypoinflation but no airspace consolidation. 2. Significant gaseous distention of bowel/colon, similar since prior study. Electronically Signed: Lorenzo Talbot MD ([place]) at 15:34 EDT , Service support ,
--- NOTE | 2019-03-09 15:18 | ED.DCSUM_ITS ---
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 Per medic report they were told the patient had a tremor at breakfast this morning. 45 minutes prior to arrival he was playing cards with family when he was noted to have weakness on his right side and difficulty with speech. They noted his heart rate to be approximately 150 during transport. On arrival patient has no complaints. He states he feels fine. He is able to move all 4 extremities. His temperature is noted to be 103. Past Medical History - Allergies and Home Meds Allergies/Adverse Reactions: Allergies Penicillins Adverse Reaction (Verified 03/09/19 15:19) Unknown Primary Care Physician: Michael Echavarria MD [Primary Care Provider] - Prior records reviewed: Yes Past Medical History: - - Reviewed Surgical History: - - Suprapubic urinary catheter Lives: [facility] Smoking Status: Never smoker - Family History Maternal Family History: Reports: - - No history of multiple sclerosis Paternal Family History: Reports: - - Patient has confusion; likely baseline and family history could not be obtained from him. Review of Systems General: Denies: Chills Eyes: Denies: Visual changes - bilaterally ENT: Denies: Bilateral ear pain Cardiovascular: Denies: Chest pain Respiratory: Denies: Cough Gastrointestinal: Denies: Abdominal pain, Vomiting Musculoskeletal: Denies: Myalgias Skin: Denies: Rash Neurological: Denies: Headache, Parasthesia Endocrine: Reports: - - Supra pubic catheter Hematologic: Denies: Easy bruising Allergy: Denies: Uticaria Physical Exam Inital Vital Signs reviewed: Yes General: Well nourished, Well developed Head: Normocephalic ENT: Moist mucous membranes Cardiovascular: Tachycardia Respiratory: No distress, CTA bilaterally Abdomen: Nontender, Hypoactive bowel sounds, - - Soft, reducible periumbilical hernia. Extremities: Nontender, No edema Skin: Normal color, No rash Neurological: Alert, - - Patient is alert and answers questions. He is able to move all 4 extremities. He has difficulty holding both legs up off the bed, but does push down against both hands. His weakness is not noted to be in a focal location that I would suspect for acute stroke. Psychological: Normal affect Diagnostic/Tx/Re-eval Impressions Brain CT 03/09/19 15:11 IMPRESSION: 1. No acute intracranial hemorrhage or mass effect. 2. Central parenchymal volume loss. White matter changes that are nonspecific but most commonly associated with chronic small vessel ischemic disease. Electronically Signed: Lornezo Talbot MD ([facility]) at 16:27 EDT , Service support , Chest X-Ray 03/09/19 15:15 IMPRESSION: 1. Hypoinflation but no airspace consolidation. 2. Significant gaseous distention of bowel/colon, similar since prior study. Electronically Signed: Lorenzo Talbot MD ([facility]) at 15:34 EDT , Service support , 03/09/19 15:11 CT Head [Brain/Head without Contrast] [CT] Stat 03/09/19 15:15 Chest 1 View (Portable) [RAD] Stat Laboratory Results 03/09/19 03/09/19 03/09/19 15:25 15:25 15:25 WBC 15.7 H RBC 4.52 L Hgb 13.5 Hct 40.4 MCV 89.4 MCH 29.9 MCHC 33.4 RDW Std Deviation 43.5 RDW Coeff of Inna 13.2 Plt Count 204 MPV 10.3 Immature Gran % (Auto) 0.400 Neut % (Auto) 90.1 H Lymph % (Auto) 0.8 L [place] % (Auto) 7.6 Eos % (Auto) 0.8 Baso % (Auto) 0.3 Absolute Neuts (auto) 14.1 H Absolute Lymphs (auto) 0.13 L Nucleated RBC % 0 Differential Comment SCANNED PT 14.4 INR 1.1 APTT 28.5 Sodium 139 Potassium 3.1 L Chloride 105 Carbon Dioxide 26.0 Anion Gap 8 BUN 50 H Creatinine 2.38 H Estim Creat Clear Calc 37.49 Est GFR (MDRD) Af Amer 37 L Est GFR (MDRD) Non-Af 31 L BUN/Creatinine Ratio 21.0 H Glucose 127 H Lactic Acid Calcium 10.0 Total Bilirubin 0.90 AST 12 L ALT 15 L Alkaline Phosphatase 65 Total Protein 6.7 Albumin 3.1 L Globulin 3.6 Albumin/Globulin Ratio 0.9 03/09/19 15:25 WBC RBC Hgb Hct MCV MCH MCHC RDW Std Deviation RDW Coeff of Inna Plt Count MPV Immature Gran % (Auto) Neut % (Auto) Lymph % (Auto) [place] % (Auto) Eos % (Auto) Baso % (Auto) Absolute Neuts (auto) Absolute Lymphs (auto) Nucleated RBC % Differential Comment PT INR APTT Sodium Potassium Chloride Carbon Dioxide Anion Gap BUN Creatinine Estim Creat Clear Calc Est GFR (MDRD) Af Amer Est GFR (MDRD) Non-Af BUN/Creatinine Ratio Glucose Lactic Acid 1.9 Calcium Total Bilirubin AST ALT Alkaline Phosphatase Total Protein Albumin Globulin Albumin/Globulin Ratio - EKG Initial EKG Interpretation: Sinus Tachycardia - Sinus tach at 147. No acute ST change. - Medical Decision Making Patient presents via EMS with concern for stroke symptoms. Patient is noted to be significantly febrile on arrival here with no focal neurologic deficits. His supra pubic catheter has been clamped and we will obtain a urine sample. He has been given IV fluids, Tylenol, and potassium replacement. I spoke with hospitalist the patient will be admitted to the PCU. Them: Nursing staff went into flush the patient's suprapubic catheter and was unable to flush or withdraw anything. Catheter was replaced. He has a large amount of very thick yellow infected urine draining into the bag at this time. This is likely the source of both the patient's infection as well as his acute renal injury. ED Disposition - Plan for ED Patient: Disposition: Acute Care Hospital [facility] Diagnosis: Sepsis Referrals: Michael Echavarria MD [Primary Care Provider] -
[2019-03-09] MEDS: Acetaminophen 650 MG Suppository RECTAL (15:40)
[2019-03-09] MEDS: 0.9% Normal Saline 1,000 ML 150 ML IV (15:40)
[2019-03-09 15:48] LABS: Absolute Lymphocyte Count 0.13 X10^3/uL (0.83-4.51); Absolute Neutrophil Count 14.1 X10^3/uL (2.0-7.7); Basophil# 0.04 X10^3/uL; Basophil% 0.3 % (0-1); Eosinophil# 0.13 X10^3/uL; Eosinophils% 0.8 % (0-5); Hematocrit 40.4 % (40-54); Hemoglobin 13.5 g/dL (13.0-16.5); Lymphocyte # 0.13 X10^3/ul (4.0); Lymphocyte % 0.8 % (19-41); Mean Corp Hgb Conc 33.4 g/dL (32-36); Mean Corpuscular Hgb 29.9 pg (27.0-32.0); Mean Corpuscular Volume 89.4 fL (80-94); Mean Platelet Vol. 10.3 fl (6.2-12.0); Monocyte# 1.19 X10^3/uL; Monocyte% 7.6 % (0-10); NRBC Flagged by Analyzer 0 % (0-5); Neutrophil # 14.14 X10^3/uL (2.7-7.7); Neutrophil % 90.1 % (47-70); POSITIVE DIFFERENTIAL YES; Platelet Count 204 K/mm3 (150-450); RBC Distribution Width CV 13.2 % (11.6-14.6); RBC Distribution Width SD 43.5 fl (35.1-43.9); Red Blood Count 4.52 M/mm3 (4.6-6.2); White Blood Count 15.7 K/mm3 (4.4-11.0)
[2019-03-09 16:04] LABS: ALB/GLOB Ratio 0.9 RATIO (0.9-2.4); AST(SGOT) 12 U/L (15-37); Alanine Aminotransfer ALT/SGPT 15 U/L (16-61); Albumin, Serum 3.1 g/dL (3.2-5.0); Alkaline Phosphatase 65 U/L (45-117); Anion Gap 8 (5-15); BUN 50 mg/dL (7-18); Chloride 105 mmol/L (98-107); Creatinine, Serum 2.38 mg/dL (0.70-1.30); Differential Indicated SCAN CRITERIA MET; EST Glomerular Filtration Rate 31 mL/min (>60); Est Glom Filt Rate - Afr Amer 37 mL/min (>60); Estimated Creatinine Clearance 37.49 ml/min; Globulin 3.6 g/dL (2.2-4.2); Glucose 127 mg/dL (74-106); Potassium 3.1 mmol/L (3.5-5.1); Protein, Total 6.7 g/dL (6.4-8.2); Sodium Level 139 mmol/L (136-145)
[2019-03-09 16:10] LABS: Lactic Acid 1.9 mmol/L (0.4-2.0)
[2019-03-09 16:11] LABS: International Normalized Ratio 1.1; Prothrombin Time (Protime)PT. 14.4 SECONDS (11.7-14.9)
[2019-03-09 16:12] LABS: Partial Thromboplast Time 28.5 Seconds (24.1-36.2)
[2019-03-09 16:29] LABS: Differential Comment SCANNED
[2019-03-09] MEDS: Potassium Chloride 10mEq/100mL 10 MEQ/100 ML IV.SOLN. 100 MEQ IV BOLUS ×4 (16:42→19:59)
--- NOTE | 2019-03-09 17:00 | PCM.HP.STD ---
Problem List (1) Neurogenic bladder Status: Chronic Comment: status post suprapubic catheter (2) Sepsis Status: Acute Qualifiers: Sepsis type: sepsis due to unspecified organism Qualified Code(s): A41.9 - Sepsis, unspecified organism (3) Depression Status: Chronic Qualifiers: Depression Type: unspecified Qualified Code(s): F32.9 - Major depressive disorder, single episode, unspecified (4) Anxiety Status: Chronic (5) Vitamin D deficiency Status: Chronic (6) GERD (gastroesophageal reflux disease) Status: Chronic Qualifiers: Esophagitis presence: esophagitis presence not specified Qualified Code(s): K21.9 - Gastro-esophageal reflux disease without esophagitis (7) UTI (urinary tract infection) due to urinary indwelling catheter Status: Acute (8) DM type 1 (diabetes mellitus, type 1) Status: Chronic (9) Multiple sclerosis Status: Chronic History of Present Illness Date of Admission: 03/09/19 Chief Complaint: Weakness, aphasia. The patient is a 54 year old M who presents to the emergency room due to reported right-sided weakness and aphasia. No family at bedside during evaluation and patient denies any symptoms including speech changes, weakness. Prior to admission, family reports patient had a tremor during breakfast. He was then noted to have right-sided weakness and difficulty with speech. The symptoms resolved upon arrival to emergency room. Patient denies fever, chills or other current complaints. Patient has a past medical history of MS, type 1 diabetes mellitus, recurrent UTIs with neurogenic bladder status post suprapubic catheter, depression, anxiety, GERD, hypertension, hyperlipidemia. Past Medical History Past Medical History (Chronic Problems): Chronic Problems Neurogenic bladder (Chronic) status post suprapubic catheter Depression (Chronic) Anxiety (Chronic) Vitamin D deficiency (Chronic) GERD (gastroesophageal reflux disease) (Chronic) DM type 1 (diabetes mellitus, type 1) (Chronic) Multiple sclerosis (Chronic) Allergies Penicillins Adverse Reaction (Verified 03/09/19 15:19) Unknown Home Medications: Ambulatory Orders Medication Instructions Recorded Ascorbic Acid [Vitamin C] 500 mg PO DAILY@0800 05/30/15 Atorvastatin Calcium [Lipitor] 10 mg PO QHS 05/30/15 Calcitriol [Rocaltrol] 0.25 mcg PO MOWEFR 05/30/15 Calcium Carbonate/Vitamin D3 1 each PO BID 05/30/15 [Calcium 600 + D Tablet] Glucagon,Human Recombinant 1 mg IM DAILY PRN PRN 05/30/15 [Glucagen] Magnesium Hydroxide [Milk Of 30 ml PO DAILY PRN PRN 05/30/15 Magnesia] Nitroglycerin (INPATIENT USE) 0.4 mg SUBLINGUAL Q5M PRN 05/30/15 [Nitrostat] Docusate Sodium [Colace] 100 mg PO BID 04/21/16 Guaifenesin [Diabetic Tussin Ex] 100 mg PO Q4H PRN PRN 04/21/16 Insulin Aspart [Novolog Flexpen] See Protocol SC TIDCM 05/17/16 Acetic Acid 30 ml IR BID 02/03/17 Bisacodyl 10 mg RC PRN PRN 02/03/17 Dextrose [Glucose Gel] 15 gm PO PRN PRN 02/03/17 Insulin Detemir [Levemir] 22 unit SQ DAILY 02/03/17 Lisinopril [Zestril] 2.5 mg PO DAILY 02/03/17 Mag Hydrox/Aluminum Hyd/Simeth 30 ml PO Q6H PRN PRN 02/03/17 [Antacid Suspension] Multivitamin [Multiple Vitamins] 1 each PO DAILY 02/03/17 Sennosides/Docusate Sodium [Senna 1 each PO PRN PRN 02/03/17 Plus Tablet] SimETHICONE [Mylicon] 80 mg PO TIDCM 02/03/17 Acetaminophen [Tylenol] 650 mg PO Q4H PRN PRN 07/22/18 Surgical History: - - Suprapubic urinary catheter Psychiatric History: No pertinent psych hx Lives: Long Term Smoking Status: Never smoker Alcohol: None Drugs: None - *Family History Maternal History Items: - - Patient has confusion; likely baseline and family history could not be obtained from him. Paternal History Items: - - Patient has confusion; likely baseline and family history could not be obtained from him. Review of Systems Constitutional: Denies: Chills, Fever, Weight Change HEENT: Denies: Head Aches, Sinus Congestion, Sinus Drainage Cardiovascular: Denies: Chest Pain, Palpitations Respiratory: Denies: Cough, Shortness of breath at rest, Sputum production Gastrointestinal: Denies: Abdominal Pain, Nausea, Vomiting Genitourinary: Denies: Dysuria Musculoskeletal: Denies: Joint Pain, Joint Tenderness Skin: Denies: Rash, Wounds Neurological: Denies: Numbness, Tingling, Focal weakness Psychiatric: Denies: Anxiety, Depression, Homicidal Ideations, Suicidal Ideations Hematologic/ Lymphatic: Denies: Easy Bruising, Easy Bleeding VTE Information - Inpt Only VTE Present on Admission: No VTE Mechan Device Prophylaxis: None VTE Pharm Prophylaxis ordered?: Yes Patient Problems: Active and Suspected Problems Sepsis (Acute) - Physical Exam General: Alert, Cooperative HEENT: Atraumatic, PERRLA, EOMI, Normocephalic Oral: - - Poor oral care Neck: Supple, No JVD, Negative Carotid Bruits Lungs: Clear to auscultation, Normal air movement Cardiovascular: Regular Rhythm, Normal S1, Normal S2, No murmurs, Tachycardic Abdomen: Bowel Sounds Present, Non Tender, Distended, - - Firm Extremities: No clubbing, No cyanosis, No edema, Capillary Refill Less than 3 Seconds Skin: No rashes, No breakdown Musculoskeletal: No Tenderness to Palpation of Joints or Extremities Neurological: Cranial nerves II-XII grossly intact Psych/Mental Status: Normal Affect, Appropriate Vital Signs Temp Pulse Resp BP Pulse Ox 99.0 F 138 H 26 H 101/71 94 03/09/19 16:39 03/09/19 16:39 03/09/19 16:39 03/09/19 16:39 03/09/19 16:39 Oxygen Delivery Method Room Air Weight: 167 lb 8.821 oz Body Mass Index (BMI) 24.0 Finger Stick Blood Glucose 177 Laboratory Tests Past 24 Hrs 03/09/19 03/09/19 03/09/19 15:25 15:25 15:25 WBC 15.7 H RBC 4.52 L Hgb 13.5 Hct 40.4 MCV 89.4 MCH 29.9 MCHC 33.4 RDW Std Deviation 43.5 RDW Coeff of Inna 13.2 Plt Count 204 MPV 10.3 Immature Gran % (Auto) 0.400 Neut % (Auto) 90.1 H Lymph % (Auto) 0.8 L [place] % (Auto) 7.6 Eos % (Auto) 0.8 Baso % (Auto) 0.3 Absolute Neuts (auto) 14.1 H Absolute Lymphs (auto) 0.13 L Nucleated RBC % 0 Differential Comment SCANNED PT 14.4 INR 1.1 APTT 28.5 Sodium 139 Potassium 3.1 L Chloride 105 Carbon Dioxide 26.0 Anion Gap 8 BUN 50 H Creatinine 2.38 H Estim Creat Clear Calc 37.49 Est GFR (MDRD) Af Amer 37 L Est GFR (MDRD) Non-Af 31 L BUN/Creatinine Ratio 21.0 H Glucose 127 H Lactic Acid Calcium 10.0 Total Bilirubin 0.90 AST 12 L ALT 15 L Alkaline Phosphatase 65 Total Protein 6.7 Albumin 3.1 L Globulin 3.6 Albumin/Globulin Ratio 0.9 03/09/19 15:25 WBC RBC Hgb Hct MCV MCH MCHC RDW Std Deviation RDW Coeff of Inna Plt Count MPV Immature Gran % (Auto) Neut % (Auto) Lymph % (Auto) [place] % (Auto) Eos % (Auto) Baso % (Auto) Absolute Neuts (auto) Absolute Lymphs (auto) Nucleated RBC % Differential Comment PT INR APTT Sodium Potassium Chloride Carbon Dioxide Anion Gap BUN Creatinine Estim Creat Clear Calc Est GFR (MDRD) Af Amer Est GFR (MDRD) Non-Af BUN/Creatinine Ratio Glucose Lactic Acid 1.9 Calcium Total Bilirubin AST ALT Alkaline Phosphatase Total Protein Albumin Globulin Albumin/Globulin Ratio Assessment/Plan All Active Problems Sepsis (Acute) UTI (urinary tract infection) due to urinary indwelling catheter (Acute) Colon obstruction (Resolved) 1. Sepsis secondary to complicated UTI, history of neurogenic bladder status post suprapubic catheter-catheter obstructed on admission. Replaced in ER. Urine and blood culture pending. Placed on IV cefepime based on prior urine cultures in which patient has grown Pseudomonas, Providencia, Proteus. IV fluids. 2. Reported right-sided weakness and expressive aphasia-rule out CVA. Symptoms may be secondary to #1. Neuro assessment on admission normal. Symptoms resolved prior to presenting to ER. [facility]ST. aspirin, statin. Obtain MRI of brain. Brain CT admission shows no acute abnormality. 3. Hypokalemia-replace per protocol. Trend BMP. 4. Acute kidney injury-suspect secondary to retention as a result of obstructed suprapubic catheter. Patient's abdomen significantly firm and distended on admission and unable to flush or pull fluid from catheter. Catheter changed in ER. IV fluids. Trend BMP. 5. Sinus tachycardia-secondary to sepsis as well as urinary retention. Monitor telemetry. Treat underlying process. 6. MS-resides at SNF. PT/OT. 7. Anxiety/depression-not on regimen. 8. Type 1 diabetes [id number] ACHS with sliding scale insulin. Continue with scheduled NovoLog and Levemir regimen. 9. GERD-not on regimen. 10. HLD-continue statin regimen. 11. Hypertension-hold home lisinopril regimen given acute kidney injury. PRN hydralazine for systolic blood pressure greater than 160. DVT prophylaxis- heparin sc This patient was seen by ATTILA Alicea under the supervision of Dr. Goncalves.
[2019-03-09 17:30] LABS: Bacteria 0 SEEN /hpf (None Seen); Mucous, Urine 0 SEEN /hpf (<or=2+); Red Blood Cells-Urine 0 SEEN /hpf (0-5); Squamous Epithelial Cells - UA 0 SEEN /hpf (0-5)
[2019-03-09 17:35] LABS: Color, Urine Yellow (Yellow); Glucose, Dipstick Normal (Normal); Ketone-Dipstick Negative (Negative); Leukocyte Esterase-Dipstick 500 /ul (Negative); Nitrite-Dipstick Negative (Negative); Occult Blood-Urine 250 /ul (Negative); Protein-Dipstick 100 mg/dl (Negative); Urine Bilirubin Dipstick Negative (Negative); Urine Clarity Cloudy (Clear); Urine Urobilinogen Normal (Normal)
[2019-03-09 17:44] LABS: White Blood Cells >100 SEEN /hpf (0-5)
--- NOTE | 2019-03-09 17:48 | ED.RN ---
OLD SUPRAPUBIC CATH REMOVED BY JOSSE GUPTA. NEW CATH INSERTED BY DR FARRAR. PT KANE WELL. SUPRAPUBIC CATH DRAINING PURULENT.
[2019-03-09 18:18] LABS: Magnesium 1.9 mg/dL (1.6-2.6); Thyroid Stim Hormone (TSH) 0.65 uIU/mL (0.358-3.74)
[2019-03-09] MEDS: 0.9% Normal Saline 1,000 ML 125 ML IV (18:56)
[2019-03-09] MEDS: Heparin Injection (Vial) 5,000 UNIT/ML VIAL 5000 UNIT SC (22:33)
[2019-03-09] MEDS: Insulin Lispro 100 UNIT/ML INSULN.PEN SC (22:35)
[2019-03-09 23:01] LABS: Bedside Glucose 187 mg/dL (70-110)
[2019-03-10] VITALS (11 sets, daily range): BP systolic 101–112; BP diastolic 51–84; PULSE 98–112; RESP 16–18; TEMP 36.6–37.1; O2SAT 95–98; BMI 23.8
[2019-03-10 05:39] LABS: Hematocrit 37.3 % (40-54); Hemoglobin 12.2 g/dL (13.0-16.5); Mean Corp Hgb Conc 32.7 g/dL (32-36); Mean Corpuscular Hgb 30.2 pg (27.0-32.0); Mean Corpuscular Volume 92.3 fL (80-94); Mean Platelet Vol. 10.5 fl (6.2-12.0); Platelet Count 171 K/mm3 (150-450); RBC Distribution Width CV 13.4 % (11.6-14.6); RBC Distribution Width SD 45.1 fl (35.1-43.9); Red Blood Count 4.04 M/mm3 (4.6-6.2); White Blood Count 12.8 K/mm3 (4.4-11.0)
[2019-03-10 06:07] LABS: Anion Gap 9 (5-15); BUN 44 mg/dL (7-18); BUN/Creat Ratio 24.7 RATIO (10-20); Calcium,Total 8.9 mg/dL (8.5-10.1); Chloride 112 mmol/L (98-107); Cholesterol 85 mg/dL (200); Creatinine, Serum 1.78 mg/dL (0.70-1.30); EST Glomerular Filtration Rate 43 mL/min (>60); Est Glom Filt Rate - Afr Amer 52 mL/min (>60); Estimated Creatinine Clearance 48.55 ml/min; Glucose 262 mg/dL (74-106); High Density Lipoprotein 50 mg/dL; Potassium 3.5 mmol/L (3.5-5.1); Sodium Level 142 mmol/L (136-145); Triglycerides 46 mg/dL; Very Low Density Lipoprotein 9 mg/dL (5-40)
[2019-03-10 06:51] LABS: Bedside Glucose 282 mg/dL (70-110)
--- NOTE | 2019-03-10 07:51 | MRI_ITS ---
STUDY: MRI BRAIN WITHOUT CONTRAST REASON FOR EXAM: Male, 54 years old. CVA and slurred speech TECHNIQUE: Standardized multiplanar fat and water weighted pulse sequences were obtained. COMPARISON: CT head 03/09/2019 FINDINGS: There is severe cerebral atrophy with widening of the extra-axial spaces and ventricular dilatation. There are multiple white matter hyperintensities, distributed throughout the deep white matter tracts of the cerebral hemispheres, consistent with moderate chronic white matter ischemic changes. There is no evidence for recent intracranial ischemia or other cause of cytotoxic edema on diffusion weighted imaging (DWI). Normal T2* images of the brain without demonstrated susceptibility artifact. There is no demonstrated hemosiderin stain. Normal bilateral basal ganglia. Normal thalami. There is no extra-axial fluid accumulation. Normal flow voids within the major intracranial circulation suggesting patency by spin echo criteria. Normal sella turcica, pituitary gland, infundibular stalk, optic chiasm and hypothalamus. Normal tectal plate and pineal gland. Normal midbrain, royce and medulla. Normal cerebellum. Normal basal cisterns. Normal bilateral temporal bones. Normal bilateral internal auditory canals. No demonstrated orbital abnormality, within the constraints of a routine brain study. Normal visualized paranasal sinuses. Normal calvarium and skull base. Normal visualized soft tissue structures. Normal visualized upper cervical spine. MRI/Brain without Contrast IMPRESSION: Involutional changes of the brain, as described above. Electronically Signed: Marjorie Cedillo, at 11:32 EDT Tel , Service support ,
--- NOTE | 2019-03-10 07:51 | MRI_ITS ---
STUDY: MRA OF THE HEAD WITHOUT CONTRAST REASON FOR EXAM: Male, 54 years old. CVA TECHNIQUE: 3-D [id number] (TOF) imaging was performed with MIPs. The study was performed unenhanced. COMPARISON: None. FINDINGS: Normal bilateral petrous carotid arteries. Normal right cavernous carotid artery with a normal supraclinoid bifurcation. Normal left cavernous carotid artery with a normal supraclinoid bifurcation. Normal right A1 segments of the anterior cerebral artery. Normal left A1 segments of the anterior cerebral artery. Normal intact anterior communicating artery (ACOM). Normal bilateral A2 segments of the anterior cerebral arteries. Normal right M1 and M2 segments of the middle cerebral arteries, with a normal M1 bifurcation. Normal left M1 and M2 segments of the middle cerebral arteries, with a normal M1 bifurcation. Normal right posterior communicating artery (PCOM). Normal left posterior communicating artery (PCOM). Normal bilateral vertebral arteries. Normal basilar artery with a normal basilar bifurcation. The visualized bilateral superior cerebellar (SCA) arteries are normal. Normal bilateral P1, P2 and visualized P3 segments of the posterior cerebral arteries. There is no demonstrated aneurysm of the [place]. There is no major vessel occlusion or hemodynamically significant stenosis. There is no demonstrated abnormality of the visualized brain. MRI/MRA Head ONLY without Contrast IMPRESSION: Normal MRA of the head Electronically Signed: Marjorie Cedillo, at 11:25 EDT Tel , Service support ,
--- NOTE | 2019-03-10 07:52 | MRI_ITS ---
STUDY: MRA NECK WITHOUT CONTRAST REASON FOR EXAM: Male, 54 years old. CVA TECHNIQUE: Source images were obtained, MIPs were performed. The study was performed unenhanced. COMPARISON: None. FINDINGS: RIGHT CAROTID ARTERIES: Normal right common carotid artery (CCA). There is mild atherosclerotic plaque formation with minimal narrowing of the right carotid bulb. There is mild atherosclerotic plaque formation of the origin of the right internal carotid artery with less than 50% cross sectional diameter stenosis. Normal visualized cervical portion of the right internal carotid artery. Normal origin of the right external carotid artery (ECA). LEFT CAROTID ARTERIES: Normal left common carotid artery (CCA). Normal left common carotid bulb. Normal origin of the left internal carotid (ICA) artery without a hemodynamically significant stenosis. Normal visualized cervical portion of the left internal carotid artery. Normal origin of the left external carotid artery (ECA). VERTEBRAL ARTERIES: Normal antegrade flow within the bilateral vertebral artery without a hemodynamically significant stenosis. MRI/MRA Neck without Contrast IMPRESSION: There is mild atherosclerotic plaque formation with minimal narrowing of the right carotid bulb. There is mild atherosclerotic plaque formation of the origin of the right internal carotid artery with less than 50% cross sectional diameter stenosis. Normal bilateral vertebral arteries. Electronically Signed: Marjorie Cedillo, at 11:17 EDT Tel , Service support ,
--- NOTE | 2019-03-10 10:49 | PN_ITS ---
<Tessie Barba - Last Filed: 03/10/19 10:54> Patient Problems: Active and Suspected Problems Sepsis (Acute) Subjective: Patient seen and examined. Requesting water. Denies current complaints. Denies fever, chills. - Physical Exam General: Alert, Cooperative, No apparent distress HEENT: Atraumatic, PERRLA, EOMI, Normocephalic Oral: - - Poor oral care Neck: Supple, No JVD, Negative Carotid Bruits Lungs: Clear to auscultation, Normal air movement Cardiovascular: Regular Rhythm, Normal S1, Normal S2, No murmurs, Tachycardic Abdomen: Bowel Sounds Present, Soft, Non Tender, Non-Distended, - - Suprapubic catheter intact. Extremities: No clubbing, No cyanosis, No edema, Capillary Refill Less than 3 Seconds Skin: No rashes, No breakdown Musculoskeletal: No Tenderness to Palpation of Joints or Extremities Neurological: Cranial nerves II-XII grossly intact, Neuro grossly intact Psych/Mental Status: Normal Affect, Appropriate Vital Signs Temp Pulse Resp BP Pulse Ox 98.7 F 112 H 18 112/84 H 95 03/10/19 05:56 03/10/19 07:11 03/10/19 05:56 03/10/19 05:56 03/10/19 07:40 Oxygen Delivery Method Room Air Weight: 161 lb 13.109 oz Body Mass Index (BMI) 23.8 Finger Stick Blood Glucose 177 Intake and Output for Last 24 Hours 03/08/19 03/09/19 03/10/19 23:59 23:59 23:59 Intake Total 764 / 764 476 / 476 Output Total 2575 / 2575 700 / 700 Balance -1811 / -1811 -224 / -224 Microbiology Past 72 Hours 03/09/19 15:10 Blood Culture - Preliminary Blood Culture (Wb) - Right Hand 03/09/19 15:25 Blood Culture - Preliminary Blood Culture (Wb) - Left Hand Laboratory Tests Past 24 Hrs 03/09/19 03/09/19 03/09/19 15:25 15:25 15:25 WBC 15.7 H RBC 4.52 L Hgb 13.5 Hct 40.4 MCV 89.4 MCH 29.9 MCHC 33.4 RDW Std Deviation 43.5 RDW Coeff of Inna 13.2 Plt Count 204 MPV 10.3 Immature Gran % (Auto) 0.400 Neut % (Auto) 90.1 H Lymph % (Auto) 0.8 L Drew % (Auto) 7.6 Eos % (Auto) 0.8 Baso % (Auto) 0.3 Absolute Neuts (auto) 14.1 H Absolute Lymphs (auto) 0.13 L Nucleated RBC % 0 Differential Comment SCANNED PT 14.4 INR 1.1 APTT 28.5 Sodium 139 Potassium 3.1 L Chloride 105 Carbon Dioxide 26.0 Anion Gap 8 BUN 50 H Creatinine 2.38 H Estim Creat Clear Calc 37.49 Est GFR (MDRD) Af Amer 37 L Est GFR (MDRD) Non-Af 31 L BUN/Creatinine Ratio 21.0 H Glucose 127 H Lactic Acid Calcium 10.0 Magnesium Total Bilirubin 0.90 AST 12 L ALT 15 L Alkaline Phosphatase 65 Total Protein 6.7 Albumin 3.1 L Globulin 3.6 Albumin/Globulin Ratio 0.9 Triglycerides Cholesterol LDL Cholesterol VLDL Cholesterol HDL Cholesterol TSH Urine Color Urine Clarity Urine pH Ur Specific Riner Urine Protein Urine Glucose (UA) Urine Ketones Urine Occult Blood Urine Nitrite Urine Bilirubin Urine Urobilinogen Ur Leukocyte Esterase Urine RBC Urine WBC Ur Squamous Epith Cells Urine Bacteria Urine Mucus 03/09/19 03/09/19 03/09/19 15:25 15:25 17:27 WBC RBC Hgb Hct MCV MCH MCHC RDW Std Deviation RDW Coeff of Inna Plt Count MPV Immature Gran % (Auto) Neut % (Auto) Lymph % (Auto) Drew % (Auto) Eos % (Auto) Baso % (Auto) Absolute Neuts (auto) Absolute Lymphs (auto) Nucleated RBC % Differential Comment PT INR APTT Sodium Potassium Chloride Carbon Dioxide Anion Gap BUN Creatinine Estim Creat Clear Calc Est GFR (MDRD) Af Amer Est GFR (MDRD) Non-Af BUN/Creatinine Ratio Glucose Lactic Acid 1.9 Calcium Magnesium 1.9 Total Bilirubin AST ALT Alkaline Phosphatase Total Protein Albumin Globulin Albumin/Globulin Ratio Triglycerides Cholesterol LDL Cholesterol VLDL Cholesterol HDL Cholesterol TSH 0.65 Urine Color Yellow Urine Clarity Cloudy Urine pH 7.0 Ur Specific Riner 1.010 Urine Protein 100 H Urine Glucose (UA) Normal Urine Ketones Negative Urine Occult Blood 250 H Urine Nitrite Negative Urine Bilirubin Negative Urine Urobilinogen Normal Ur Leukocyte Esterase 500 H Urine RBC 0 SEEN Urine WBC >100 SEEN Ur Squamous Epith Cells 0 SEEN Urine Bacteria 0 SEEN Urine Mucus 0 SEEN 03/10/19 03/10/19 05:24 05:24 WBC 12.8 H RBC 4.04 L Hgb 12.2 L Hct 37.3 L MCV 92.3 MCH 30.2 MCHC 32.7 RDW Std Deviation 45.1 H RDW Coeff of Inna 13.4 Plt Count 171 MPV 10.5 Immature Gran % (Auto) Neut % (Auto) Lymph % (Auto) Drew % (Auto) Eos % (Auto) Baso % (Auto) Absolute Neuts (auto) Absolute Lymphs (auto) Nucleated RBC % Differential Comment PT INR APTT Sodium 142 Potassium 3.5 Chloride 112 H Carbon Dioxide 21.0 Anion Gap 9 BUN 44 H Creatinine 1.78 H Estim Creat Clear Calc 48.55 Est GFR (MDRD) Af Amer 52 L Est GFR (MDRD) Non-Af 43 L BUN/Creatinine Ratio 24.7 H Glucose 262 H Lactic Acid Calcium 8.9 Magnesium Total Bilirubin AST ALT Alkaline Phosphatase Total Protein Albumin Globulin Albumin/Globulin Ratio Triglycerides 46 Cholesterol 85 LDL Cholesterol 26 VLDL Cholesterol 9 HDL Cholesterol 50 TSH Urine Color Urine Clarity Urine pH Ur Specific Riner Urine Protein Urine Glucose (UA) Urine Ketones Urine Occult Blood Urine Nitrite Urine Bilirubin Urine Urobilinogen Ur Leukocyte Esterase Urine RBC Urine WBC Ur Squamous Epith Cells Urine Bacteria Urine Mucus POC Glucose 03/10/19 03/09/19 06:44 22:31 POC Glucose 282 H 187 H Medical Necessity - Tobacco Use Smoking Status: Never smoker Tobacco Use: Non-smoker Assessment/Plan All Active Problems Sepsis (Acute) UTI (urinary tract infection) due to urinary indwelling catheter (Acute) Colon obstruction (Resolved) 1. Sepsis secondary to complicated UTI, history of neurogenic bladder status post suprapubic catheter-catheter obstructed on admission. Replaced in ER. Urine and blood culture pending. Placed on IV cefepime based on prior urine cultures in which patient has grown Pseudomonas, Providencia, Proteus. IV fluids. Suprapubic catheter now draining without difficulty. 2. Reported right-sided weakness and expressive aphasia-rule out CVA. Suspect symptoms secondary to #1. Neuro assessment on admission normal. Symptoms resolved prior to presenting to ER. Q4 NIHHS. PT/OT/ST. aspirin, statin. Obtain MRI of brain, MRA of head and neck. Brain CT admission shows no acute abnormality. 3. Hypokalemia-replace per protocol. Trend BMP. 4. Acute kidney injury-secondary to retention as a result of obstructed suprapubic catheter. Creatinine significantly improved. Continue IV fluids. Trend BMP. 5. Sinus tachycardia-secondary to sepsis as well as urinary retention. Monitor telemetry. Treat underlying process. 6. MS-resides at [facility]. PT/OT. 7. Anxiety/depression-not on regimen. 8. Type 1 diabetes [id number] ACHS with sliding scale insulin. Continue with scheduled NovoLog and Levemir regimen. 9. GERD-not on regimen. 10. HLD-continue statin regimen. 11. Hypertension-hold home lisinopril regimen given acute kidney injury. PRN hydralazine for systolic blood pressure greater than 160. DVT prophylaxis- heparin sc This patient was seen by ATTILA Alicea under the supervision of Dr. Thompson. <Harpal Thompson - Last Filed: 03/10/19 15:10> - Physical Exam General: Alert, Cooperative, No apparent distress HEENT: Atraumatic, Normocephalic Oral: - Lungs: Clear to auscultation, Normal air movement, No rhonchi, No wheeze Cardiovascular: Regular Rhythm, Normal S1, Normal S2, No murmurs, Tachycardic Abdomen: Bowel Sounds Present, Soft, Non Tender, Non-Distended, - Extremities: No edema, No Calf Tenderness Neurological: Sensory exam intact to light touch and pain, - - no clonus. Psych/Mental Status: Normal Affect, Appropriate Vital Signs Temp Pulse Resp BP Pulse Ox 36.6 C 110 H 18 109/66 98 03/10/19 10:30 03/10/19 10:30 03/10/19 10:30 03/10/19 10:30 03/10/19 10:30 Oxygen Delivery Method Room Air Weight: 73.4 kg Body Mass Index (BMI) 23.8 Finger Stick Blood Glucose 177 Intake and Output for Last 24 Hours 03/08/19 03/09/19 03/10/19 23:59 23:59 23:59 Intake Total 764 / 764 1681 / 1681 Output Total 2575 / 2575 1600 / 1600 Balance -1811 / -1811 81 / 81 Microbiology Past 72 Hours 03/09/19 17:27 Urine Culture - Preliminary Urine, Clean Catch Gram negative milo 03/09/19 15:10 Blood Culture - Preliminary Blood Culture (Wb) - Right Hand 03/09/19 15:25 Blood Culture - Preliminary Blood Culture (Wb) - Left Hand Laboratory Tests Past 24 Hrs 03/09/19 03/09/19 03/09/19 15:25 15:25 15:25 WBC 15.7 H RBC 4.52 L Hgb 13.5 Hct 40.4 MCV 89.4 MCH 29.9 MCHC 33.4 RDW Std Deviation 43.5 RDW Coeff of Inna 13.2 Plt Count 204 MPV 10.3 Immature Gran % (Auto) 0.400 Neut % (Auto) 90.1 H Lymph % (Auto) 0.8 L Drew % (Auto) 7.6 Eos % (Auto) 0.8 Baso % (Auto) 0.3 Absolute Neuts (auto) 14.1 H Absolute Lymphs (auto) 0.13 L Nucleated RBC % 0 Differential Comment SCANNED PT 14.4 INR 1.1 APTT 28.5 Sodium 139 Potassium 3.1 L Chloride 105 Carbon Dioxide 26.0 Anion Gap 8 BUN 50 H Creatinine 2.38 H Estim Creat Clear Calc 37.49 Est GFR (MDRD) Af Amer 37 L Est GFR (MDRD) Non-Af 31 L BUN/Creatinine Ratio 21.0 H Glucose 127 H Lactic Acid Calcium 10.0 Magnesium Total Bilirubin 0.90 AST 12 L ALT 15 L Alkaline Phosphatase 65 Total Protein 6.7 Albumin 3.1 L Globulin 3.6 Albumin/Globulin Ratio 0.9 Triglycerides Cholesterol LDL Cholesterol VLDL Cholesterol HDL Cholesterol TSH Urine Color Urine Clarity Urine pH Ur Specific Riner Urine Protein Urine Glucose (UA) Urine Ketones Urine Occult Blood Urine Nitrite Urine Bilirubin Urine Urobilinogen Ur Leukocyte Esterase Urine RBC Urine WBC Ur Squamous Epith Cells Urine Bacteria Urine Mucus 03/09/19 03/09/19 03/09/19 15:25 15:25 17:27 WBC RBC Hgb Hct MCV MCH MCHC RDW Std Deviation RDW Coeff of Inna Plt Count MPV Immature Gran % (Auto) Neut % (Auto) Lymph % (Auto) Drew % (Auto) Eos % (Auto) Baso % (Auto) Absolute Neuts (auto) Absolute Lymphs (auto) Nucleated RBC % Differential Comment PT INR APTT Sodium Potassium Chloride Carbon Dioxide Anion Gap BUN Creatinine Estim Creat Clear Calc Est GFR (MDRD) Af Amer Est GFR (MDRD) Non-Af BUN/Creatinine Ratio Glucose Lactic Acid 1.9 Calcium Magnesium 1.9 Total Bilirubin AST ALT Alkaline Phosphatase Total Protein Albumin Globulin Albumin/Globulin Ratio Triglycerides Cholesterol LDL Cholesterol VLDL Cholesterol HDL Cholesterol TSH 0.65 Urine Color Yellow Urine Clarity Cloudy Urine pH 7.0 Ur Specific Riner 1.010 Urine Protein 100 H Urine Glucose (UA) Normal Urine Ketones Negative Urine Occult Blood 250 H Urine Nitrite Negative Urine Bilirubin Negative Urine Urobilinogen Normal Ur Leukocyte Esterase 500 H Urine RBC 0 SEEN Urine WBC >100 SEEN Ur Squamous Epith Cells 0 SEEN Urine Bacteria 0 SEEN Urine Mucus 0 SEEN 03/10/19 03/10/19 05:24 05:24 WBC 12.8 H RBC 4.04 L Hgb 12.2 L Hct 37.3 L MCV 92.3 MCH 30.2 MCHC 32.7 RDW Std Deviation 45.1 H RDW Coeff of Inna 13.4 Plt Count 171 MPV 10.5 Immature Gran % (Auto) Neut % (Auto) Lymph % (Auto) Drew % (Auto) Eos % (Auto) Baso % (Auto) Absolute Neuts (auto) Absolute Lymphs (auto) Nucleated RBC % Differential Comment PT INR APTT Sodium 142 Potassium 3.5 Chloride 112 H Carbon Dioxide 21.0 Anion Gap 9 BUN 44 H Creatinine 1.78 H Estim Creat Clear Calc 48.55 Est GFR (MDRD) Af Amer 52 L Est GFR (MDRD) Non-Af 43 L BUN/Creatinine Ratio 24.7 H Glucose 262 H Lactic Acid Calcium 8.9 Magnesium Total Bilirubin AST ALT Alkaline Phosphatase Total Protein Albumin Globulin Albumin/Globulin Ratio Triglycerides 46 Cholesterol 85 LDL Cholesterol 26 VLDL Cholesterol 9 HDL Cholesterol 50 TSH Urine Color Urine Clarity Urine pH Ur Specific Riner Urine Protein Urine Glucose (UA) Urine Ketones Urine Occult Blood Urine Nitrite Urine Bilirubin Urine Urobilinogen Ur Leukocyte Esterase Urine RBC Urine WBC Ur Squamous Epith Cells Urine Bacteria Urine Mucus POC Glucose 03/10/19 03/10/19 03/09/19 11:28 06:44 22:31 POC Glucose 431 H 282 H 187 H Assessment/Plan Patient seen and examined independently. Data reviewed. I agree with the above note by the nurse practitioner. 1. Sepsis * Present on admission * Secondary to UTI * Supportive management 2. UTI, catheter associated * Patient has a chronic suprapubic catheter for neurogenic bladder * Catheter changed in the emergency room * Continue cefepime * Follow-up urine culture 3. Metabolic encephalopathy * Patient had reported right-sided weakness and expressive aphasia, likely just exacerbated due to sepsis and urinary tract infection * MRI negative for acute stroke * Discontinue further stroke evaluation 4. Acute kidney injury * Likely prerenal in etiology * Admission creatinine 2.38, down to 1.78. Baseline may be around 0.85 from July 25, 2018 * Continue with IV fluids * Monitor Code Visit Inpatient E&M: [id number] [facility] Hosp L3
[2019-03-10] MEDS: Insulin Lispro 100 UNIT/ML INSULN.PEN SC ×3 (11:30→21:56)
[2019-03-10] MEDS: Aspirin E.C. 81 MG Tablet PO (11:32)
[2019-03-10] MEDS: Calcium Carb/Vitamin D 1 TABLET Tablet PO ×2 (11:32→16:41)
[2019-03-10] MEDS: Calcitriol 0.25 MCG Capsule PO (11:32)
[2019-03-10] MEDS: Heparin Injection (Vial) 5,000 UNIT/ML VIAL 5000 UNIT SC ×2 (11:33→21:56)
--- NOTE | 2019-03-10 11:59 | CASEMGMT ---
Patient is from [facility] in [place]. CLAY faxed updates to [facility]. SW to follow for d/c back to [facility] when ready. Iman ALLISON MSW
[2019-03-10] MEDS: 0.9% Normal Saline 1,000 ML 125 ML IV ×2 (12:10→19:31)
[2019-03-10 13:16] LABS: Bedside Glucose 431 mg/dL (70-110)
[2019-03-10] MEDS: Docusate Sodium 100 MG Capsule PO (16:41)
[2019-03-10 17:25] LABS: Bedside Glucose 495 mg/dL (70-110)
[2019-03-10 18:46] LABS: Bedside Glucose > 500 mg/dL (70-110)
[2019-03-10 19:21] LABS: Glucose 468 mg/dL (74-106)
[2019-03-10] MEDS: Insulin Lispro 100 UNIT/ML INSULN.PEN 10 UNIT SC (19:31)
[2019-03-10 21:31] LABS: Bedside Glucose 303 mg/dL (70-110)
[2019-03-11 02:59] VITALS: PULSE 92
[2019-03-11 03:46] VITALS: BP 107/68; PULSE 92; RESP 18; TEMP 36.7; O2SAT 96
[2019-03-11] MEDS: 0.9% Normal Saline 1,000 ML 125 ML IV ×2 (03:51→06:12)
[2019-03-11] MEDS: 0.9% NaCl Peripheral Flush Adult/Peds IV (03:51)
[2019-03-11 07:29] LABS: Anion Gap 6 (5-15); BUN 35 mg/dL (7-18); BUN/Creat Ratio 28.2 RATIO (10-20); Calcium,Total 8.8 mg/dL (8.5-10.1); Chloride 113 mmol/L (98-107); Creatinine, Serum 1.24 mg/dL (0.70-1.30); EST Glomerular Filtration Rate 65 mL/min (>60); Est Glom Filt Rate - Afr Amer 79 mL/min (>60); Estimated Creatinine Clearance 69.69 ml/min; Glucose 48 mg/dL (74-106); Potassium 3.1 mmol/L (3.5-5.1); Sodium Level 144 mmol/L (136-145)
[2019-03-11 07:31] LABS: Bedside Glucose 40 mg/dL (70-110)
[2019-03-11 07:31] LABS: Bedside Glucose 80 mg/dL (70-110)
[2019-03-11 07:45] VITALS: O2SAT 96
[2019-03-11 08:48] VITALS: BP 127/81; PULSE 96; RESP 18; TEMP 36.4; O2SAT 97
[2019-03-11] MEDS: Aspirin E.C. 81 MG Tablet PO (08:52)
[2019-03-11] MEDS: Calcium Carb/Vitamin D 1 TABLET Tablet PO (08:52)
[2019-03-11] MEDS: Polyethylene Glycol 3350 17 GM PACKET PO (08:53)
--- NOTE | 2019-03-11 09:49 | CASEMGMT ---
CLAY faxed updates to [facility]. CLAY also called [facility] and left a message for someone in admissions. Plan: d/c back back to [facility] in [place]. Iman ALLISON MSW
[2019-03-11] MEDS: Heparin Injection (Vial) 5,000 UNIT/ML VIAL 5000 UNIT SC (10:23)
[2019-03-11 10:30] LABS: Bedside Glucose 218 mg/dL (70-110)
--- NOTE | 2019-03-11 10:31 | PCM.EXTCARCO ---
- Diet 03/09/19 17:42 Carb [Diet: Carbohydrate Controlled] - Routine Orders/Code Status Enema Type: Fleetz Enema Frequency: Daily PRN Routine Lab Work: CBC, BMP, - - In 1 week Code Status: DNC-A - Wound(s) R heel Wound Type: Pressure Injury - Suggestions for Active Care Change Position every (hours): 2 Times a day to sit in chair: 3 - Therapies Physical Therapy: Eval and Treat Occupational Therapy: Eval and Treat Speech Therapy: Eval and Treat - Problem/Diagnosis (1) Neurogenic bladder Status: Chronic Comment: status post suprapubic catheter Current Visit: No (2) Sepsis Status: Acute Current Visit: Yes (3) Depression Status: Chronic Current Visit: No (4) Anxiety Status: Chronic Current Visit: No (5) Vitamin D deficiency Status: Chronic Current Visit: No (6) GERD (gastroesophageal reflux disease) Status: Chronic Current Visit: No (7) UTI (urinary tract infection) due to urinary indwelling catheter Status: Acute Current Visit: Yes (8) DM type 1 (diabetes mellitus, type 1) Status: Chronic Current Visit: No (9) Multiple sclerosis Status: Chronic Current Visit: No - Allergies/Procedures Done in Hospital Allergies/Adverse Reactions: Allergies Penicillins Adverse Reaction (Verified 03/09/19 15:19) Unknown Procedures: None - Type of Care/Length of Stay Estimated LOS: More Than 30 Days Type of Care Needed: Skilled Rehab Potential: Fair Prognosis: Fair - Additional Orders/Day of Discharge H&P will serve as current which was dated: 03/09/19 Day of Discharge: 03/11/19 - Dietary and Speech Recommendations Dietitian Recommendations/Changes: Recommend continue carb controlled diet. - Follow Up Care Primary Care Physician: Michael Echavarria MD [Primary Care Provider] - Please follow up with your Primary Care Physician in: 1 Week
[2019-03-11 10:33] VITALS: PULSE 89
--- NOTE | 2019-03-11 10:34 | DS.PCM_ITS ---
<Tessie Barba - Last Filed: 03/11/19 10:56> Discharge Date and Diagnosis - Problem List Patient Problems: Active and Suspected Problems Sepsis (Acute) UTI (urinary tract infection) due to urinary indwelling catheter (Acute) Date of Admission: 03/09/19 Date of Discharge: 03/11/19 - Primary Discharge Diagnosis Active and Suspected Problems 1. Sepsis secondary to complicated UTI, history of neurogenic bladder status post suprapubic catheter with catheter obstructed on admission. 2. Reported right-sided weakness and expressive aphasia, CVA ruled out. Suspect symptoms secondary to #1 3. Hypokalemia 4. Acute kidney injury-secondary to retention as a result of obstructed suprapubic catheter. 5. Sinus tachycardia-secondary to sepsis as well as urinary retention. 6. MS 7. Anxiety/depression 8. Type 1 diabetes mellitus 9. GERD 10. HLD 11. Hypertension - Secondary Discharge Diagnosis Chronic Problems Neurogenic bladder (Chronic) status post suprapubic catheter Depression (Chronic) Anxiety (Chronic) Vitamin D deficiency (Chronic) GERD (gastroesophageal reflux disease) (Chronic) DM type 1 (diabetes mellitus, type 1) (Chronic) Multiple sclerosis (Chronic) Hospital Course and Treatment Imaging Results: Diagnostic Data Brain CT 03/09/19 15:11 IMPRESSION: 1. No acute intracranial hemorrhage or mass effect. 2. Central parenchymal volume loss. White matter changes that are nonspecific but most commonly associated with chronic small vessel ischemic disease. Electronically Signed: Lorenzo Talbot MD (Bro[place]) at 16:27 EDT , Service support , Chest X-Ray 03/09/19 15:15 IMPRESSION: 1. Hypoinflation but no airspace consolidation. 2. Significant gaseous distention of bowel/colon, similar since prior study. Electronically Signed: Lorenzo Talbot MD (Brooks) at 15:34 EDT , Service support , Brain MRI 03/10/19 07:51 IMPRESSION: Involutional changes of the brain, as described above. Electronically Signed: Marjorie Cedillo, at 11:32 EDT Tel , Service support , Head MRA 03/10/19 07:51 IMPRESSION: Normal MRA of the head Electronically Signed: Marjorie Cedillo, at 11:25 EDT Tel , Service support , Neck MRA 03/10/19 07:52 IMPRESSION: There is mild atherosclerotic plaque formation with minimal narrowing of the right carotid bulb. There is mild atherosclerotic plaque formation of the origin of the right internal carotid artery with less than 50% cross sectional diameter stenosis. Normal bilateral vertebral arteries. Electronically Signed: Marjorie Cedillo, at 11:17 EDT Tel , Service support , Operations: None Procedures: None Summary of Care Provided: The patient is a 54 year old M admitted 03/09/2019 due to weakness, aphasia. 1. Sepsis secondary to complicated UTI, history of neurogenic bladder status post suprapubic catheter-catheter obstructed on admission. Replaced in ER. Suprapubic catheter now draining without difficulty. Urine culture shows providencia, susceptible to Bactrim. Will discharge on Bactrim for 8 more days of antibiotic therapy. Follow-up with primary care physician in 1 week. Recommend routine suprapubic catheter change. 2. Reported right-sided weakness and expressive aphasia-CVA ruled out. Suspect symptoms secondary to #1. Obtain MRI of brain, MRA of head and neck without acute process or significant stenosis. 3. Hypokalemia-replaced per protocol. 4. Acute kidney injury-secondary to retention as a result of obstructed suprapubic catheter. Creatinine now normal. 5. Sinus tachycardia-secondary to sepsis as well as urinary retention. Resolved. 6. MS-resides at SNF. PT/OT. 7. Anxiety/depression-not on regimen. 8. Type 1 diabetes mellitus-continue home insulin regimen. 9. GERD-not on regimen. 10. HLD-continue statin regimen. 11. Hypertension-stable, continue home lisinopril regimen. General: Alert, Cooperative, No apparent distress HEENT: Atraumatic, PERRLA, EOMI, Normocephalic Oral: - - Poor oral care Neck: Supple, No JVD, Negative Carotid Bruits Lungs: Clear to auscultation, Normal air movement Cardiovascular: Regular Rhythm, Normal S1, Normal S2, No murmurs, Tachycardic Abdomen: Bowel Sounds Present, Soft, Non Tender, Non-Distended, - - Suprapubic catheter intact. Extremities: No clubbing, No cyanosis, No edema, Capillary Refill Less than 3 Seconds Skin: No rashes, No breakdown Musculoskeletal: No Tenderness to Palpation of Joints or Extremities Neurological: Cranial nerves II-XII grossly intact, Neuro grossly intact Psych/Mental Status: Normal Affect, Appropriate Patient seen and examined prior to discharge. Physical assessment as noted above. Patient is stable for discharge with follow up recommendations as noted above. This patient was seen by ATTILA Alicea under the supervision of Dr. Thompson. Patient Problems: Active and Suspected Problems Sepsis (Acute) UTI (urinary tract infection) due to urinary indwelling catheter (Acute) - Physical Exam Vital Signs Temp Pulse Resp BP Pulse Ox 97.8 F 96 18 127/81 H 97 03/11/19 08:48 03/11/19 08:48 03/11/19 08:48 03/11/19 08:48 03/11/19 08:48 Oxygen Delivery Method Room Air Weight: 161 lb 13.109 oz Body Mass Index (BMI) 23.8 Finger Stick Blood Glucose 177 Intake and Output for Last 24 Hours 03/09/19 03/10/19 03/11/19 23:59 23:59 23:59 Intake Total 764 / 764 3600 / 3600 1740.58 / 1740.58 Output Total 2575 / 2575 4505 / 4505 1000 / 1000 Balance -1811 / -1811 -905 / -905 740.58 / 740.58 Microbiology Past 72 Hours 03/09/19 17:27 Urine Culture - Preliminary Urine, Clean Catch Providencia stuartii Gram negative milo 03/09/19 15:10 Blood Culture - Preliminary Blood Culture (Wb) - Right Hand 03/09/19 15:25 Blood Culture - Preliminary Blood Culture (Wb) - Left Hand Laboratory Tests Past 24 Hrs 03/10/19 03/11/19 19:00 06:54 Sodium 144 Potassium 3.1 L Chloride 113 H Carbon Dioxide 25.0 Anion Gap 6 BUN 35 H Creatinine 1.24 Estim Creat Clear Calc 69.69 Est GFR (MDRD) Af Amer 79 Est GFR (MDRD) Non-Af 65 BUN/Creatinine Ratio 28.2 H Glucose 468 H* 48 L Calcium 8.8 POC Glucose 03/11/19 03/11/19 03/11/19 10:19 07:24 06:57 POC Glucose 218 H 80 40 L* 03/10/19 03/10/19 03/10/19 21:27 18:40 16:39 POC Glucose 303 H > 500 H* 495 H* 03/10/19 11:28 POC Glucose 431 H Home Medications: Medications to take at Discharge Ascorbic Acid [Vitamin C] 500 mg PO DAILY@0800 05/30/15 Atorvastatin Calcium [Lipitor] 10 mg PO QHS 05/30/15 Calcitriol [Rocaltrol] 0.25 mcg PO MOWEFR 05/30/15 Calcium Carbonate/Vitamin D3 [Calcium 600 + D Tablet] 1 each PO BID 05/30/15 Glucagon,Human Recombinant [Glucagen] 1 mg IM DAILY PRN PRN 05/30/15 Magnesium Hydroxide [Milk Of Magnesia] 30 ml PO DAILY PRN PRN 05/30/15 Nitroglycerin (INPATIENT USE) [Nitrostat] 0.4 mg SUBLINGUAL Q5M PRN 05/30/15 Docusate Sodium [Colace] 100 mg PO BID 04/21/16 Guaifenesin [Diabetic Tussin Ex] 100 mg PO Q4H PRN PRN 04/21/16 Insulin Aspart [Novolog Flexpen] See Protocol SC TIDCM 05/17/16 Acetic Acid 30 ml IR BID 02/03/17 Bisacodyl 10 mg RC PRN PRN 02/03/17 Dextrose [Glucose Gel] 15 gm PO PRN PRN 02/03/17 Insulin Detemir [Levemir] 22 unit SQ DAILY 02/03/17 Lisinopril [Zestril] 2.5 mg PO DAILY 02/03/17 Mag Hydrox/Aluminum Hyd/Simeth [Antacid Suspension] 30 ml PO Q6H PRN PRN 02/03/17 Multivitamin [Multiple Vitamins] 1 each PO DAILY 02/03/17 Sennosides/Docusate Sodium [Senna Plus Tablet] 1 each PO PRN PRN 02/03/17 SimETHICONE [Mylicon] 80 mg PO TIDCM 02/03/17 Acetaminophen [Tylenol] 650 mg PO Q4H PRN PRN 07/22/18 Polyethylene Glycol 3350 [Miralax] 17 gm PO DAILY packet 03/11/19 Smz/Tmp Ds [Bactrim Ds] 1 tab PO BID 8 Days tab 03/11/19 Primary Care Physician: Michael Echavarria MD [Primary Care Provider] - Please follow up with your Primary Care Physician in: 1 Week Disposition: [facility] facility Minutes spent on discharge:: 35 Patient Condition:: Stable Medical Necessity - Tobacco Use Smoking Status: Unknown if ever smoked Tobacco Use: Non-smoker Meaningful Use Info Meaningful Use Diagnoses (Choose all that apply): None applicable <Harpal Thompson - Last Filed: 03/11/19 11:51> Discharge Date and Diagnosis - Secondary Discharge Diagnosis Chronic Problems Neurogenic bladder (Chronic) status post suprapubic catheter Depression (Chronic) Anxiety (Chronic) Vitamin D deficiency (Chronic) GERD (gastroesophageal reflux disease) (Chronic) DM type 1 (diabetes mellitus, type 1) (Chronic) Multiple sclerosis (Chronic) Hospital Course and Treatment Operations: None Procedures: None Summary of Care Provided: Patient seen and examined independently. Data reviewed. I agree with the above note by the nurse practitioner. 54 year old who presents with weakness. He underwent a neurological eval that was negative. Found to have a CAUTI. 1. Sepsis * Present on admission * Secondary to UTI * Supportive management 2. UTI, catheter associated * Patient has a chronic suprapubic catheter for neurogenic bladder * Catheter changed in the emergency room * + Providenia stuartii (low CFU of yet to be ID'd GNR), sensitive to sulfameth/trim 3. Metabolic encephalopathy * resolved * Patient had reported right-sided weakness and expressive aphasia, likely just exacerbated due to sepsis and urinary tract infection * MRI negative for acute stroke * Discontinue further stroke evaluation 4. Acute kidney injury * resolved with IVF * Likely prerenal in etiology * Admission creatinine 2.38, down to 1.24. Baseline may be around 0.85 from July 25, 2018 5. Abdominal distention: * Has been present on images back to at least 2016 and noted on CXR during this admission. Asymptomatic. * Unclear etiology * ensure routine bowel regimen 6. Disposition: back to SNF in stable condition.[] - Physical Exam General: Alert, No apparent distress HEENT: Atraumatic, Normocephalic Oral: Moist Mucosa, No Gingival or Mucosal Lesions/ Ulcerations Neck: No Nodes, Thyroid Normal Size and Texture Lungs: Clear to auscultation, Normal air movement, No rhonchi, No wheeze Cardiovascular: Regular rate, Regular Rhythm, Normal S1, Normal S2, No murmurs Abdomen: Bowel Sounds Present, Soft, Non Tender, Distended Extremities: No edema, No Calf Tenderness Vital Signs Temp Pulse Resp BP Pulse Ox 36.4 C L 89 18 127/81 H 97 03/11/19 08:48 03/11/19 10:33 03/11/19 08:48 03/11/19 08:48 03/11/19 08:48 Oxygen Delivery Method Room Air Weight: 73.4 kg Body Mass Index (BMI) 23.8 Finger Stick Blood Glucose 177 Intake and Output for Last 24 Hours 03/09/19 03/10/19 03/11/19 23:59 23:59 23:59 Intake Total 764 / 764 3600 / 3600 1740.58 / 1740.58 Output Total 2575 / 2575 4505 / 4505 1000 / 1000 Balance -1811 / -1811 -905 / -905 740.58 / 740.58 Microbiology Past 72 Hours 03/09/19 17:27 Urine Culture - Preliminary Urine, Clean Catch Providencia stuartii Gram negative milo 03/09/19 15:10 Blood Culture - Preliminary Blood Culture (Wb) - Right Hand 03/09/19 15:25 Blood Culture - Preliminary Blood Culture (Wb) - Left Hand Laboratory Tests Past 24 Hrs 03/10/19 03/11/19 19:00 06:54 Sodium 144 Potassium 3.1 L Chloride 113 H Carbon Dioxide 25.0 Anion Gap 6 BUN 35 H Creatinine 1.24 Estim Creat Clear Calc 69.69 Est GFR (MDRD) Af Amer 79 Est GFR (MDRD) Non-Af 65 BUN/Creatinine Ratio 28.2 H Glucose 468 H* 48 L Calcium 8.8 POC Glucose 03/11/19 03/11/19 03/11/19 10:19 07:24 06:57 POC Glucose 218 H 80 40 L* 03/10/19 03/10/19 03/10/19 21:27 18:40 16:39 POC Glucose 303 H > 500 H* 495 H* 03/10/19 11:28 POC Glucose 431 H Discharge Diet: No Restrictions Discharge Activity: Return to Normal Activity Call your doctor if you observe: - - worsening abdominal pain. Disposition: [facility] facility Minutes spent on discharge:: 35 Patient Condition:: Stable Medical Necessity - Tobacco Use Smoking Status: Unknown if ever smoked Tobacco Use: Non-smoker Meaningful Use Info Meaningful Use Diagnoses (Choose all that apply): None applicable Code Visit Inpatient E&M: 57233 Disch Hosp
[2019-03-11] MEDS: Insulin Lispro 100 UNIT/ML INSULN.PEN SC (11:45)
[2019-03-11 11:48] VITALS: BP 128/94; PULSE 78; RESP 18; TEMP 36.4; O2SAT 98
--- NOTE | 2019-03-11 11:59 | CASEMGMT ---
Patient is ready for discharge back to [facility] today. SW has left messages for the admission dept and have not heard back. CLAY faxed the orders to [facility]. SW spoke with patient about discharge and he usually uses [facility]. SW called [facility] and they can garbage pick up worker patient at 1p via wheelchair. CLAY called [facility] and let Cielo the network security architect know about d/c and garbage pick up worker time since SW could not reach anyone else. CLAY spoke with patient and he said SW does not need to call any family members. CLAY also notified RN and network security architect. Plan: d/c back to [facility] under intermediate level of care. Patient is a shelter resident. [facility] transported via wheelchair. Iman ALLISON MSW
--- NOTE | 2019-03-11 12:38 | NURSING ---
No answer at nurses' station.
--- NOTE | 2019-03-11 12:52 | NURSING ---
Called Eric again, to call report, no answer.
[2019-03-11 13:11] LABS: Bedside Glucose 181 mg/dL (70-110)
== END 2019-03-11 13:00 | disposition skilled nursing facility (03) | DRG 698 ==
LOC: ED 16:57 → PCU 18:05
PROVIDERS: Internal Medicine; Nurse Practitioner Family; Admitting Provider Family Medicine; Emergency Provider Emergency Medicine; Family Provider Family Medicine; PCP Family Medicine
DX: T83.518A Infection and inflammatory reaction due to other urinary catheter, initial encounter (principal); A41.9 Sepsis, unspecified organism; G93.41 Metabolic encephalopathy; N17.9 Acute kidney failure, unspecified; R47.01 Aphasia; T83.090A Other mechanical complication of cystostomy catheter, initial encounter; Y84.6 Urinary catheterization as the cause of abnormal reaction of the patient, or of later complication, without mention of misadventure at the time of the procedure; I10 Essential (primary) hypertension; G35 Multiple sclerosis; N31.9 Neuromuscular dysfunction of bladder, unspecified; E87.6 Hypokalemia; F79 Unspecified intellectual disabilities; E10.9 Type 1 diabetes mellitus without complications; E78.5 Hyperlipidemia, unspecified; E55.9 Vitamin D deficiency, unspecified; K21.9 Gastro-esophageal reflux disease without esophagitis; Y92.9 Unspecified place or not applicable; Z79.4 Long term (current) use of insulin; Z79.899 Other long term (current) drug therapy; Z87.440 Personal history of urinary (tract) infections
CPT/HCPCS: 36415; 70450; 70544; 70547; 70551; 71045; 80048; 80053; 80061; 81001; 82947; 82962; 83605; 83735; 84443; 85025; 85027; 85610; 85730; 87040; 87077; 87086; 87088; 87186; 92526; 92610; 93005; 94762; 97162; 97166; 97802; 99285; J7030; A4216

== ENCOUNTER 2020-04-30 23:04 | Inpatient (IN) | payer MEDICARE, MEDICAID, SELFPAY ==
[2019-03-10 09:23] VITALS: BMI 23.8
[2020-04-30 23:05] VITALS: BP 96/51; PULSE 103; RESP 20; TEMP 37.7; O2SAT 94; BMI 27.7
--- NOTE | 2020-04-30 23:07 | EKG12_ITS ---
Test Reason : DYSRHYTHMIA Blood Pressure : / mmHG Vent. Rate : 104 BPM Atrial Rate : 104 BPM P-R Int : 144 ms QRS Dur : 084 ms QT Int : 310 ms P-R-T Axes : 035 012 -13 degrees QTc Int : 407 ms Sinus tachycardia Otherwise normal ECG Confirmed by MOISES ONEAL, BENITO ([id number]), news assignment editor DEEPIKA PLAZA ([id number]) on 05/05/2020 11:20:24 AM Referred By: VANNESA Confirmed By:MADISON DE LEON MD
[2020-04-30] MEDS: Acetaminophen 500 MG Tablet 1000 MG PO (23:38)
--- NOTE | 2020-04-30 23:40 | RAD_ITS ---
HISTORY: Cough, fever. ADDITIONAL HISTORY: None provided. EXAMINATION/TECHNIQUE: XR Chest 1 View AP/PA Number of images including paperwork: 1 COMPARISON: 03/09/2019 FINDINGS: LUNGS AND PLEURA: Low lung volumes. No consolidation, mass or pleural effusion. CARDIAC SILHOUETTE: Unremarkable. MEDIASTINUM AND JOESPH: Unremarkable. UPPER ABDOMEN: Marked gaseous bowel distention again seen. SKELETON AND SOFT TISSUES: No acute skeletal findings. OTHER DEVICES AND HARDWARE: None. RAD/Chest 1 View (Portable) IMPRESSION: Low lung volumes without definite acute abnormality. Gaseous bowel distention. at [id number] Reported and signed by: Kim Rader MD Electronically Signed: Kim Rader MD at 23:58 EDT Tel , Service support ,
[2020-04-30 23:41] VITALS: BP 96/51; PULSE 103; RESP 20; TEMP 37.7; TEMP 37.8; O2SAT 94
[2020-04-30] MEDS: 0.9% Normal Saline 1,000 ML 999 ML IV (23:41)
[2020-04-30 23:42] LABS: Mucous, Urine 0 SEEN /hpf (<or=2+); Red Blood Cells-Urine 0 SEEN /hpf (0-5); Squamous Epithelial Cells - UA 0 SEEN /hpf (0-5)
--- NOTE | 2020-04-30 23:46 | CPS ---
[2330] Pt. adamant about not wanting to be swabbed to check for Covid-19. Dr. Nash made aware of this in ED.
[2020-04-30 23:48] LABS: Color, Urine Yellow (Yellow); Glucose, Dipstick Normal (Normal); Ketone-Dipstick 5 mg/dl (Negative); Leukocyte Esterase-Dipstick 500 /ul (Negative); Nitrite-Dipstick Positive (Negative); Occult Blood-Urine 150 /ul (Negative); Protein-Dipstick 100 mg/dl (Negative); Urine Bilirubin Dipstick Negative (Negative); Urine Clarity Turbid (Clear); Urine Urobilinogen Normal (Normal)
--- NOTE | 2020-04-30 23:49 | ED.RN ---
DR BALDWIN PREFORMED ULTRASOUND ON BLADDER AND NOTICED LARGE AMT OF URINE. SUPRAPUBIC REPLACED WITH A 18G 5ML PICKERING. NEW BAG AND TUBING PLACED. URINE SAMPLE OF THICK CLOUDY STRAW COLORED STRONG ODOR. PT ALSO TURNED TO ASSESS FOR WOUNDS.
[2020-04-30 23:55] LABS: Absolute Lymphocyte Count 0.71 X10^3/uL (0.83-4.51); Absolute Neutrophil Count 14.8 X10^3/uL (2.0-7.7); Basophil# 0.04 X10^3/uL; Basophil% 0.2 % (0-1); Eosinophils% 0.6 % (0-5); Hematocrit 39.5 % (40-54); Hemoglobin 12.8 g/dL (13.0-16.5); Lymphocyte # 0.71 X10^3/ul (4.0); Mean Corp Hgb Conc 32.4 g/dL (32-36); Mean Corpuscular Hgb 30.2 pg (27.0-32.0); Mean Corpuscular Volume 93.2 fL (80-94); Mean Platelet Vol. 10.9 fl (6.2-12.0); Monocyte# 2.13 X10^3/uL; Monocyte% 11.9 % (0-10); NRBC Flagged by Analyzer 0 % (0-5); Neutrophil # 14.82 X10^3/uL (2.7-7.7); Neutrophil % 82.7 % (47-70); POSITIVE DIFFERENTIAL YES; Platelet Count 199 K/mm3 (150-450); RBC Distribution Width CV 13.5 % (11.6-14.6); RBC Distribution Width SD 45.6 fl (35.1-43.9); Red Blood Count 4.24 M/mm3 (4.6-6.2); White Blood Count 17.9 K/mm3 (4.4-11.0)
[2020-04-30 23:57] LABS: International Normalized Ratio 1.1; Prothrombin Time (Protime)PT. 14.1 SECONDS (11.7-14.9)
[2020-04-30 23:58] LABS: Partial Thromboplast Time 28.5 Seconds (24.1-36.2)
[2020-04-30 23:59] LABS: Differential Indicated SCAN CRITERIA MET
[2020-05-01] VITALS (13 sets, daily range): BP systolic 101–160; BP diastolic 53–69; PULSE 75–105; RESP 16–25; TEMP 36.7–37.6; O2SAT 94–99; BMI 27.5
[2020-05-01 00:05] LABS: AST(SGOT) 9 U/L (15-37); Alanine Aminotransfer ALT/SGPT 14 U/L (16-61); Albumin, Serum 3.2 g/dL (3.2-5.0); Alkaline Phosphatase 68 U/L (45-117); Anion Gap 6 (5-15); BUN 17 mg/dL (7-18); BUN/Creat Ratio 12.5 RATIO (10-20); Calcium,Total 8.7 mg/dL (8.5-10.1); Chloride 109 mmol/L (98-107); Creatinine, Serum 1.36 mg/dL (0.70-1.30); EST Glomerular Filtration Rate 58 mL/min (>60); Est Glom Filt Rate - Afr Amer 70 mL/min (>60); Estimated Creatinine Clearance 56.69 ml/min; Globulin 3.2 g/dL (2.2-4.2); Glucose 39 mg/dL (74-106); Potassium 3.3 mmol/L (3.5-5.1); Protein, Total 6.4 g/dL (6.4-8.2); Sodium Level 144 mmol/L (136-145)
[2020-05-01 00:06] LABS: Lactic Acid 1.4 mmol/L (0.4-1.9)
[2020-05-01 00:10] LABS: White Blood Cells >100 SEEN /hpf (0-5)
[2020-05-01 00:14] LABS: Bacteria 3+ /hpf (None Seen)
--- NOTE | 2020-05-01 00:21 | HP.PCM_ITS ---
Problem List (1) Sepsis Status: Acute Qualifiers: Sepsis type: sepsis due to unspecified organism Sepsis acute organ dysfunction status: unspecified Qualified Code(s): A41.9 - Sepsis, unspecified organism (2) UTI (urinary tract infection) due to urinary indwelling catheter Status: Acute Qualifiers: Indwelling urinary catheter type: unspecified (3) Diabetes Status: Chronic Qualifiers: Diabetes mellitus type: other specified (including AMY) Diabetes mellitus long winder tender insulin use: with long winder tender use Diabetes mellitus complication status: with hypoglycemia (4) Neurogenic bladder Status: Chronic Comment: status post suprapubic catheter (5) Depression Status: Chronic Qualifiers: Depression Type: unspecified Qualified Code(s): F32.9 - Major depressive disorder, single episode, unspecified (6) Anxiety Status: Chronic (7) GERD (gastroesophageal reflux disease) Status: Chronic Qualifiers: Esophagitis presence: esophagitis presence not specified Qualified Code(s): K21.9 - Gastro-esophageal reflux disease without esophagitis (8) Multiple sclerosis Status: Chronic History of Present Illness Date of Admission: 05/01/20 Chief Complaint: Catheter not draining, fevers The patient is a 55 y/o M w/ PMHx: CKD stage III, Multiple Sclerosis, Dementia unclear type without behavioral disturbance history, Neurogenic bladder with chronic suprapubic catheter, HTN, HLD, GERD, Diabetes mellitus type II, Anxiety and Depression who presents to the [facility] ED on 05/01/20 with history of difficulties with catheter function at facility and noted block, unclear timeline with onset fevers and discomfort with concern for infection prompting referral to the ED. Upon ED presentation patient noted feeling improved and was irritable at necessity for admission but underlying suspected component MRDD. Work-up in the ED included T 100, heart rate 103, BP 96/51, respiratory rate 20, 94% on room air, CBC with WBC 17.9, hemoglobin 12.8, platelet 199 with left shift with concurrent lymphopenia, unremarkable coags, CMP with potassium 3.3, chloride 109, BUN/creatinine 17/1.36, glucose 39, lactic acid 1.4, troponin less than 0.015, urinalysis concerning for UTI, blood culture x 2 pending per ED, urine culture pending per ED, chest x-ray with low lung volumes with no acute cardiopulmonary finding, gaseous bowel distention. In the ED patient ministered dextrose 25 g IV x1, Tylenol 1000 mg p.o. x1, normal saline and Rocephin. Review of records patient urine cultures have previously had Pseudomonas, Proteus, [place] all previously noted to be susceptible to cefepime. ED physician changed out his catheter in the ED. Past Medical History Past Medical History (Chronic Problems): Chronic Problems Diabetes (Chronic) Neurogenic bladder (Chronic) status post suprapubic catheter Depression (Chronic) Anxiety (Chronic) Vitamin D deficiency (Chronic) GERD (gastroesophageal reflux disease) (Chronic) DM type 1 (diabetes mellitus, type 1) (Chronic) Multiple sclerosis (Chronic) Allergies Penicillins Adverse Reaction (Verified 04/30/20 23:05) Unknown Home Medications: Ambulatory Orders Medication Instructions Recorded Ascorbic Acid [Vitamin C] 500 mg PO DAILY@0800 05/30/15 Atorvastatin Calcium [Lipitor] 10 mg PO QHS 05/30/15 Calcitriol [Rocaltrol] 0.25 mcg PO MOWEFR 05/30/15 Calcium Carbonate/Vitamin D3 1 each PO BID 05/30/15 [Calcium 600 + D Tablet] Glucagon,Human Recombinant 1 mg IM DAILY PRN PRN 05/30/15 [Glucagen] Magnesium Hydroxide [Milk Of 30 ml PO DAILY PRN PRN 05/30/15 Magnesia] Nitroglycerin (INPATIENT USE) 0.4 mg SUBLINGUAL Q5M PRN 05/30/15 [Nitrostat] Docusate Sodium [Colace] 100 mg PO BID PRN PRN 04/21/16 Guaifenesin [Diabetic Tussin Ex] 100 mg PO Q4H PRN PRN 04/21/16 Insulin Aspart [Novolog Flexpen] See Protocol SC TIDCM 05/17/16 Acetic Acid 30 ml IR BID 02/03/17 Bisacodyl 10 mg RC PRN PRN 02/03/17 Dextrose [Glucose Gel] 15 gm PO PRN PRN 02/03/17 Lisinopril [Zestril] 2.5 mg PO DAILY 02/03/17 Mag Hydrox/Aluminum Hyd/Simeth 30 ml PO Q6H PRN PRN 02/03/17 [Antacid Suspension] Sennosides/Docusate Sodium [Senna 1 each PO PRN PRN 02/03/17 Plus Tablet] SimETHICONE [Mylicon] 80 mg PO TIDCM 02/03/17 Acetaminophen [Tylenol] 650 mg PO Q4H PRN PRN 07/22/18 Polyethylene Glycol 3350 [Miralax] 17 gm PO DAILY packet 03/11/19 Insulin Glargine,Hum.rec.anlog 22 unit SQ DAILY 05/01/20 [Lantus] Multivitamin 1 ea PO DAILY 05/01/20 Surgical History: - - Suprapubic urinary catheter Psychiatric History: No pertinent psych hx Lives: Residential Smoking Status: Never smoker Tobacco Use: Non-smoker Alcohol: None Drugs: None - *Family History Maternal History Items: - - Patient with underlying dementia, denies any specific maternal or paternal family history including heart disease, diabetes, cancer but poor historian. Paternal History Items: - - Patient with underlying dementia, denies any specific maternal or paternal family history including heart disease, diabetes, cancer but poor historian. Review of Systems Constitutional: Reports: Fever, Fatigue. Denies: Anorexia, Chills, Malaise, Weakness, Weight Change HEENT: Denies: Head Aches, Sinus Congestion, Sinus Drainage Cardiovascular: Denies: Chest Pain, Palpitations Respiratory: Denies: Cough, Shortness of breath at rest, Sputum production Gastrointestinal: Reports: Constipation, - - Chronic abdominal distention present.. Denies: Abdominal Pain, Nausea, Vomiting Genitourinary: Reports: Retention, - - Blockage noted with suprapubic catheter.. Denies: Dysuria Musculoskeletal: Denies: Joint Pain, Joint Tenderness Skin: Denies: Rash, Wounds Neurological: Reports: Change in Speech, Confusion, Focal weakness. Denies: Numbness, Tingling Psychiatric: Reports: Anxiety, Depression. Denies: Homicidal Ideations, Suicidal Ideations Hematologic/ Lymphatic: Denies: Easy Bruising, Easy Bleeding VTE Information - Inpt Only VTE Present on Admission: No VTE Mechan Device Prophylaxis: SCD's VTE Pharm Prophylaxis ordered?: Yes Subjective: Seated upright in the ED bed, denies any complaints, mildly irritable. Objective: Physical Examination: General: awake, alert, oriented to self, place and some recent events, frequently noting that his presentation is bullshit but remains amenable to care and admission once explained. Skin: normal color, turgor, no icterus, cyanosis, except BL franco abrasions. HEENT: AT/NC, EOMI, PERRLA, dry MM, poor dentition, no carotid bruits or JVD noted. Lungs: CTA bilaterally, moderate effort, moderate decrease BL bases, no rales, ronchi or wheezing. Heart: Mildly tachycardic with regular rhythm; no gallop, rub audible. Abdomen: soft, distended, NTTP, suprapubic catheter in place, changed, previous had been malfunctioning with urinary retention, distant bowel sounds, difficult to assess HSM. Extremities: no cyanosis, clubbing, or edema. Neurological: awake, alert, oriented to self, place and some recent events, frequently noting that his presentation is bullshit but remains amenable to care and admission once explained; cognitive function suspected baseline intact, reduced with underlying dementia with MS; pupils equally reactive to light and accomodation; cranial nerves II-XII grossly normal, moving all 4 extremities but complicated by chronic debilities/weakness with MS, strength severely globally decreased. psychiatric: Irritable, calms with discussion, no acute evidence of depressive or anxiety feelings. - Physical Exam Vitals/I&O's: Vital Signs Temp Pulse Resp BP Pulse Ox 100 F H 103 H 20 H 96/51 L 94 04/30/20 23:41 04/30/20 23:41 04/30/20 23:41 04/30/20 23:41 04/30/20 23:41 Oxygen Delivery Method Room Air Weight: 171 lb 11.841 oz Body Mass Index (BMI) 27.7 Finger Stick Blood Glucose 177 Laboratory Results 04/30/20 23:20: WBC 17.9 H, RBC 4.24 L, Hgb 12.8 L, Hct 39.5 L, MCV 93.2, MCH 30.2, MCHC 32.4, RDW Std Deviation 45.6 H, RDW Coeff of Inna 13.5, Plt Count 199, MPV 10.9, Immature Gran % (Auto) 0.600, Neut % (Auto) 82.7 H, Lymph % (Auto) 4.0 L, [place] % (Auto) 11.9 H, Eos % (Auto) 0.6, Baso % (Auto) 0.2, Absolute Neuts (auto) 14.8 H, Absolute Lymphs (auto) 0.71 L, Nucleated RBC % 0 04/30/20 23:20: PT 14.1, INR 1.1, APTT 28.5 04/30/20 23:20: Sodium 144, Potassium 3.3 L, Chloride 109 H, Carbon Dioxide 29.0, Anion Gap 6, BUN 17, Creatinine 1.36 H, Estim Creat Clear Calc 56.69, Est GFR (MDRD) Af Amer 70, Est GFR (MDRD) Non-Af 58 L, BUN/Creatinine Ratio 12.5, Glucose 39 L*, Calcium 8.7, Total Bilirubin 0.70, AST 9 L, ALT 14 L, Alkaline Phosphatase 68, Troponin I < 0.015, Total Protein 6.4, Albumin 3.2, Globulin 3.2, Albumin/Globulin Ratio 1.0 04/30/20 23:20: Lactic Acid 1.4 04/30/20 23:25: Urine Color Yellow, Urine Clarity Turbid, Urine pH 7.0, Ur Specific [place] 1.010, Urine Protein 100 H, Urine Glucose (UA) Normal, Urine Ketones 5 H, Urine Occult Blood 150 H, Urine Nitrite Positive H, Urine Bilirubin Negative, Urine Urobilinogen Normal, Ur Leukocyte Esterase 500 H, Urine RBC 0 SEEN, Urine WBC >100 SEEN, Ur Squamous Epith Cells 0 SEEN, Urine Bacteria 3+, Urine Mucus 0 SEEN Current Medications Sodium Chloride () 1,000 mls @ 999 mls/hr IV .Q1H1M ONE Stop: 05/01/20 00:39 Last Admin: 04/30/20 23:41 Dose: 999 mls/hr Documented by: Ceftriaxone Sodium (Rocephin) 1 gm in 50 mls @ 100 mls/hr IV X1 ONE Stop: 05/01/20 00:33 Assessment/Plan All Active Problems Sepsis (Acute) UTI (urinary tract infection) due to urinary indwelling catheter (Acute) Colon obstruction (Resolved) The patient is a 55 y/o M w/ PMHx: CKD stage III, Multiple Sclerosis, Dementia unclear type without behavioral disturbance history, Neurogenic bladder with chronic suprapubic catheter, HTN, HLD, GERD, Diabetes mellitus type II, Anxiety and Depression who presents to the [facility] ED on 05/01/20 with history of difficulties with catheter function at facility and noted block, unclear timeline with onset fevers and discomfort with concern for infection. 1. Acute Sepsis secondary to Acute Complicated UTI: Given hypoglycemia, hypotension in the ED initially, will admit to the PCU, UA upon ED evaluation remarkable, pending UCx, catheter changed in the ED upon admission, admission CBC w/ WBC 17.9 with L shift, continue IVFs, monitor I/Os, continue IV cefepime based on prior cultures w/ transition as able pending sensitivities and speciation. Bld cx x 2 obtained in the ED. 2. Diabetes mellitus unclear type (reported I in [employer], prior history noting type II) with hypoglycemia: Admission glucose 39, likely associate with acute septic presentation, will maintain on IV fluids with dextrose, continue closely to monitor glucose levels with frequent Accu-Cheks and allow liberalized regular diet until improved levels. 3. Hypokalemia: Admission K+ 3.3, magnesium level requested, supplementation given, repeat level in AM. 4. Chronic Kidney Disease Stage III: Admission BUN/Cr 17/1.36, baseline renal function 1.1-1.2, repeat BMP in AM. 5. Multiple sclerosis: Continue frequent position changes, fall precautions, barrier cream as needed, aggressive bowel regimen as chronic constipation issues, PT, OT, case management consultations for discharge planning. 6. Anxiety and depression: Not on regimen, encourage continued outpatient follow-up. 7. Hypertension: Given ANTONY holding home lisinopril regimen, PRN hydralazine. 8. Hyperlipidemia: Continue home statin regimen. 9. DVT prophylaxis: SCDs, lovenox. 10. CODE status: Per facility paperwork, DNR-CCA, no intubation status. Inpatient E&M: 91922 Init Hosp L3
[2020-05-01] MEDS: Ceftriaxone 1 GM/50 ML BAG IV (00:30)
[2020-05-01] MEDS: Dextrose 50%-Water 25 GM/50 ML DISP.SYRIN IV (00:30)
--- NOTE | 2020-05-01 00:34 | ED.DCSUM_ITS ---
- ER Visit Summary Date of Service: 05/01/20 Chief Complaint: Fever, suprapubic catheter not draining History of Present Illness: The patient is a 55 M who presents with a fever as well as a suprapubic catheter not draining. Patient comes of a detention. He has a history of a neurogenic bladder with a suprapubic catheter in place. Staff noted that his not been draining. His symmetry at the nursing was 101.3 ?F today. He had a flu shot today and they thought maybe that his elevated temperature was due to this. He does have a history of MS and is fairly bedbound. The patient is currently denying any complaints. He is DNR CCA. Physical Examination: Vital signs reviewed. HEENT exam unremarkable. Heart is regular rate and rhythm without murmurs. Lungs are clear to auscultation. Abdomen is soft and nontender, but he does have distention which is chronic. There is a suprapubic catheter in place.. Extremities reveal no edema. Skin exam normal. Neurologic exam shows diffuse overall weakness secondary to his MS, but he answers all questions appropriately. Skin exam reveals no rashes. There is a slight stage I decubitus ulcer. There are no open wounds on his back or buttocks. Test Results: White blood count 17.9, hemoglobin 12.8, potassium 3.3. Creatinine is 1.36. Urinalysis does show evidence of infection. Troponin and lactate are normal. EKG was sinus tachycardia. Chest x-ray shows chronic changes Emergency Department Course and Treatment: The patient's suprapubic catheter appears to be clogged. I changed this out with a new 18 [place] suprapubic catheter. Urine then drained freely. Patient was medicated with Tylenol. His blood glucose was 39 on his CMP so I gave him an amp of D50. His mentation was normal throughout his emergency department stay. Due to previous sensitivities I did give him a dose of IV Rocephin. Due to his sepsis, the patient will be admitted to the hospital for further evaluation. Treatment Plan: [] Disposition: Admit Impression: Sepsis, UTI, hypoglycemia, blocked suprapubic catheter This note was generated with Cabifyation software. It may contain incorrect words, spelling, and punctuation that were not noted in review of the chart prior to signing ED Disposition - Plan for ED Patient: Referrals: Michael Echavarria MD [Primary Care Provider] -
[2020-05-01 01:26] LABS: Bedside Glucose 118 mg/dL (70-110)
[2020-05-01 02:01] LABS: Magnesium 1.8 mg/dL (1.6-2.6)
[2020-05-01] MEDS: Dextrose 5%/0.9% NaCl 1,000 ML 125 ML IV ×2 (02:17→11:01)
[2020-05-01 02:31] LABS: Bedside Glucose 73 mg/dL (70-110)
[2020-05-01 04:56] LABS: Bedside Glucose 74 mg/dL (70-110)
[2020-05-01 06:55] LABS: Bedside Glucose 71 mg/dL (70-110)
[2020-05-01 07:33] LABS: Absolute Lymphocyte Count 0.65 X10^3/uL (0.83-4.51); Absolute Neutrophil Count 11.9 X10^3/uL (2.0-7.7); Basophil# 0.04 X10^3/uL; Basophil% 0.3 % (0-1); Eosinophil# 0.05 X10^3/uL; Eosinophils% 0.3 % (0-5); Hematocrit 37.1 % (40-54); Hemoglobin 11.7 g/dL (13.0-16.5); Lymphocyte # 0.65 X10^3/ul (4.0); Lymphocyte % 4.3 % (19-41); Mean Corp Hgb Conc 31.5 g/dL (32-36); Mean Corpuscular Hgb 29.8 pg (27.0-32.0); Mean Corpuscular Volume 94.6 fL (80-94); Mean Platelet Vol. 10.6 fl (6.2-12.0); Monocyte# 2.27 X10^3/uL; Monocyte% 15.1 % (0-10); NRBC Flagged by Analyzer 0 % (0-5); Neutrophil # 11.94 X10^3/uL (2.7-7.7); Neutrophil % 79.4 % (47-70); POSITIVE DIFFERENTIAL YES; Platelet Count 166 K/mm3 (150-450); RBC Distribution Width CV 13.7 % (11.6-14.6); RBC Distribution Width SD 47.9 fl (35.1-43.9); Red Blood Count 3.92 M/mm3 (4.6-6.2)
[2020-05-01 07:56] LABS: ALB/GLOB Ratio 0.9 RATIO (0.9-2.4); AST(SGOT) 13 U/L (15-37); Alanine Aminotransfer ALT/SGPT 14 U/L (16-61); Albumin, Serum 2.8 g/dL (3.2-5.0); Alkaline Phosphatase 63 U/L (45-117); Anion Gap 3 (5-15); BUN 17 mg/dL (7-18); BUN/Creat Ratio 14.3 RATIO (10-20); Calcium,Total 8.2 mg/dL (8.5-10.1); Chloride 109 mmol/L (98-107); Creatinine, Serum 1.19 mg/dL (0.70-1.30); EST Glomerular Filtration Rate 68 mL/min (>60); Est Glom Filt Rate - Afr Amer 82 mL/min (>60); Estimated Creatinine Clearance 60.11 ml/min; Glucose 65 mg/dL (74-106); Potassium 3.4 mmol/L (3.5-5.1); Protein, Total 5.8 g/dL (6.4-8.2); Sodium Level 140 mmol/L (136-145)
[2020-05-01 08:41] LABS: Differential Indicated SCAN CRITERIA MET
[2020-05-01 09:16] LABS: Differential Comment SCANNED
[2020-05-01 09:31] LABS: Bedside Glucose 263 mg/dL (70-110)
[2020-05-01] MEDS: Ascorbic Acid 500 MG Tablet PO (09:37)
[2020-05-01] MEDS: Lisinopril 2.5 MG Tablet PO (09:37)
[2020-05-01] MEDS: Calcium Carb/Vitamin D 1 TABLET Tablet PO ×2 (09:37→23:37)
[2020-05-01] MEDS: Multivitamins,Therapeutic Tablet 1 TABLET PO (09:37)
[2020-05-01] MEDS: 0.9% Saline Lock 10 ML Syringe IV (09:38)
[2020-05-01] MEDS: Enoxaparin 40 MG/0.4 ML Syringe SC (09:38)
[2020-05-01] MEDS: Menthol/Lanolin/Calamine/Znox 113 GM Tube 1 APPLIC TOPICAL ×4 (09:38→23:37)
[2020-05-01] MEDS: ACETIC ACID 1,000 ML IRRIG.SOLN 30 ML IR (09:45)
--- NOTE | 2020-05-01 09:58 | PN_ITS ---
Subjective: Patient seen and examined. She was admitted with a complaint of fever and his suprapubic catheter not draining. He was also found to be hypoglycemic with blood sugar of 39 on admission. He is being managed for sepsis due to UTI and hyperglycemia. He is currently on IV cefepime. Patient has no complaints this morning. He denies any fever, any chills, any nausea vomiting or diarrhea. Patient asked if he could go back to his assisted living today but was told that he was not well enough to go back. Tachycardia and tachypnea have improved. Temperature is down to 98.3 Fahrenheit this morning. Chemistry significant for potassium of 3.4. Glucose is up to 65. BMP today. WBC still elevated at 15. Vitals/I&O's: Vital Signs Temp Pulse Resp BP Pulse Ox 98.3 F 92 18 106/53 L 97 05/01/20 09:35 05/01/20 09:35 05/01/20 09:35 05/01/20 09:35 05/01/20 09:35 Oxygen Delivery Method Room Air Weight: 163 lb 14.619 oz Body Mass Index (BMI) 27.5 Finger Stick Blood Glucose 177 Intake and Output for Last 24 Hours 04/29/20 04/30/20 05/01/20 23:59 23:59 23:59 Intake Total 1634.58 / 1634.58 Output Total 500 / 500 Balance 1134.58 / 1134.58 General: Alert, Oriented x3, Cooperative, No apparent distress HEENT: Atraumatic, PERRLA, EOMI, Normocephalic Oral: Dry Mucosa Neck: Supple, No JVD, Negative Carotid Bruits Lungs: Clear to auscultation, Normal air movement, No rhonchi, No wheeze Cardiovascular: Regular rate, Regular Rhythm, Normal S1, Normal S2, No murmurs Abdomen: Bowel Sounds Present, Soft, Non Tender, - - mildly distended, suprapubic catheter in place; lower abdomen covered in fecal matter, including area of suprapubic catheter. Extremities: No clubbing, No cyanosis, No edema, Capillary Refill Less than 3 Seconds Skin: No rashes, No breakdown Musculoskeletal: No Tenderness to Palpation of Joints or Extremities Lymphatic: No Cervical, Supraclavicular, or Inguinal Adenopathy Neurological: Cranial nerves II-XII grossly intact, Neuro grossly intact, Motor Exam 5/5 strength throughout Psych/Mental Status: Normal Affect, Appropriate, Alert and oriented to time, place, person, mood and affect Microbiology Past 72 Hours 05/01/20 02:00 Stool C. difficile DNA Amplification - Final Laboratory Results 04/30/20 23:20: WBC 17.9 H, RBC 4.24 L, Hgb 12.8 L, Hct 39.5 L, MCV 93.2, MCH 30.2, MCHC 32.4, RDW Std Deviation 45.6 H, RDW Coeff of Inna 13.5, Plt Count 199, MPV 10.9, Immature Gran % (Auto) 0.600, Neut % (Auto) 82.7 H, Lymph % (Auto) 4.0 L, [place] % (Auto) 11.9 H, Eos % (Auto) 0.6, Baso % (Auto) 0.2, Absolute Neuts (auto) 14.8 H, Absolute Lymphs (auto) 0.71 L, Nucleated RBC % 0, Differential Comment COMMENT, Diff Path Review November04/30/20 23:20: PT 14.1, INR 1.1, APTT 28.5 04/30/20 23:20: Sodium 144, Potassium 3.3 L, Chloride 109 H, Carbon Dioxide 29.0, Anion Gap 6, BUN 17, Creatinine 1.36 H, Estim Creat Clear Calc 56.69, Est GFR (MDRD) Af Amer 70, Est GFR (MDRD) Non-Af 58 L, BUN/Creatinine Ratio 12.5, Glucose 39 L*, Calcium 8.7, Total Bilirubin 0.70, AST 9 L, ALT 14 L, Alkaline Phosphatase 68, Troponin I < 0.015, Total Protein 6.4, Albumin 3.2, Globulin 3.2, Albumin/Globulin Ratio 1.0 04/30/20 23:20: Lactic Acid 1.4 04/30/20 23:22: Magnesium 1.8 04/30/20 23:25: Urine Color Yellow, Urine Clarity Turbid, Urine pH 7.0, Ur Specific [place] 1.010, Urine Protein 100 H, Urine Glucose (UA) Normal, Urine Ketones 5 H, Urine Occult Blood 150 H, Urine Nitrite Positive H, Urine Bilirubin Negative, Urine Urobilinogen Normal, Ur Leukocyte Esterase 500 H, Urine RBC 0 SEEN, Urine WBC >100 SEEN, Ur Squamous Epith Cells 0 SEEN, Urine Bacteria 3+, Urine Mucus 0 SEEN 05/01/20 01:21: POC Glucose 118 H 05/01/20 02:02: COVID-19 (SINDI) Not Detected 05/01/20 02:16: POC Glucose 73 05/01/20 04:48: POC Glucose 74 05/01/20 06:31: POC Glucose 71 05/01/20 06:37: WBC 15.0 H, RBC 3.92 L, Hgb 11.7 L, Hct 37.1 L, MCV 94.6 H, MCH 29.8, MCHC 31.5 L, RDW Std Deviation 47.9 H, RDW Coeff of Inna 13.7, Plt Count 166, MPV 10.6, Immature Gran % (Auto) 0.600, Neut % (Auto) 79.4 H, Lymph % (Auto) 4.3 L, [place] % (Auto) 15.1 H, Eos % (Auto) 0.3, Baso % (Auto) 0.3, Absolute Neuts (auto) 11.9 H, Absolute Lymphs (auto) 0.65 L, Nucleated RBC % 0, Differential Comment SCANNED, Diff Path Review November05/01/20 06:37: Sodium 140, Potassium 3.4 L, Chloride 109 H, Carbon Dioxide 28.0, Anion Gap 3 L, BUN 17, Creatinine 1.19, Estim Creat Clear Calc 60.11, Est GFR (MDRD) Af Amer 82, Est GFR (MDRD) Non-Af 68, BUN/Creatinine Ratio 14.3, Glucose 65 L, Calcium 8.2 L, Total Bilirubin 0.80, AST 13 L, ALT 14 L, Alkaline Phosphatase 63, Total Protein 5.8 L, Albumin 2.8 L, Globulin 3.0, Albumin/Globulin Ratio 0.9 05/01/20 09:23: POC Glucose 263 H Diagnostic Data Chest X-Ray 04/30/20 23:40 IMPRESSION: Low lung volumes without definite acute abnormality. Gaseous bowel distention. at 2358 Reported and signed by: Kim Rader MD Electronically Signed: Kim Rader MD at 23:58 EDT Tel , Service support , Current Medications Acetaminophen (Tylenol) 650 mg PO Q6H PRN PRN PRN Reason: Pain Score 1-10/Temp > 100.7 F Acetic Acid (Acetic Acid) 30 ml IR BID [facility] Last Admin: 05/01/20 09:45 Dose: 30 ml Documented by: Al Hydroxide/Mg Hydroxide (Mylanta Ii) 30 ml PO Q6H PRN PRN PRN Reason: Gastric Burning Albuterol Sulfate (Ventolin Aerosols) 2.5 mg INHALATION Q2H PRN PRN PRN Reason: Dyspnea, wheezing Ascorbic Acid (Vitamin C) 500 mg PO DAILY@0800 [facility] Last Admin: 05/01/20 09:37 Dose: 500 mg Documented by: Atorvastatin Calcium (Lipitor) 10 mg PO QHS [facility] Calamine/Phenol (Calmoseptine Ointment) 1 applic TOPICAL 4X/DAY [facility]; Protocol Last Admin: 05/01/20 09:38 Dose: 1 applicatio Documented by: Calcitriol (Rocaltrol) 0.25 mcg PO MOWEFR [facility] Calcium/Vitamin D (Os-Phillip 500mg + D) 1 tablet PO BID [facility] Last Admin: 05/01/20 09:37 Dose: 1 tablet Documented by: Dextrose (D50w Syringe) 0 gm IV X1 PRN; Protocol PRN Reason: Hypoglycemia Enoxaparin Sodium (Lovenox) 40 mg SC DAILY [facility] Last Admin: 05/01/20 09:38 Dose: 40 mg Documented by: Glucagon () 1 mg IM .X1 PRN PRN Reason: Hypoglycemia Guaifenesin (Robitussin) 20 ml PO Q4H PRN PRN PRN Reason: COUGH Cefepime HCl 1 gm/ Sodium (Chloride) 50 mls @ 100 mls/hr IV Q8 [facility] Last Infusion: 05/01/20 06:06 Dose: Infused Documented by: Dextrose/Sodium Chloride (Dextrose 5%/0.9% Nacl) 1,000 mls @ 125 mls/hr IV .Q8H [facility] Last Infusion: 05/01/20 06:06 Dose: 125 mls/hr Documented by: Sodium Chloride () 250 mls @ 15 mls/hr IV .[id number] PRN PRN Reason: Saline Flush Sodium Chloride () 250 mls @ 15 mls/hr IV .[id number] PRN PRN Reason: Additional IVPB Infusion Insulin Human Lispro (Humalog Kwikpen (Bkc)) 0 unit SC ACHS [facility]; Protocol Last Admin: 05/01/20 06:38 Dose: Not Given Documented by: Lisinopril (Zestril) 2.5 mg PO DAILY [facility] Last Admin: 05/01/20 09:37 Dose: 2.5 mg Documented by: Magnesium Hydroxide (Milk Of Magnesia) 30 ml PO DAILY PRN PRN PRN Reason: Constipation Melatonin (Melatonin) 3 mg PO QHS PRN PRN PRN Reason: INSOMNIA Morphine Sulfate () 2 mg IV Q3H PRN PRN PRN Reason: Pain Score 6-10 Multivitamins (Multivitamin) 1 tablet PO DAILY@0800 [facility] Last Admin: 05/01/20 09:37 Dose: 1 tablet Documented by: Nitroglycerin (Nitrostat) 0.4 mg SUBLINGUAL Q5M PRN PRN Reason: CARDIAC/CHEST PAIN Ondansetron HCl (Zofran) 4 mg IV Q8H PRN PRN PRN Reason: NAUSEA/VOMITING Oxycodone HCl (Oxyir) 5 mg PO Q4H PRN PRN PRN Reason: Pain Score 4-5 Polyethylene Glycol (Miralax) 17 gm PO DAILY [facility] Last Admin: 05/01/20 09:39 Dose: Not Given Documented by: Prochlorperazine Edisylate (Compazine Iv) 5 mg IV Q4H PRN PRN PRN Reason: Breakthrough Nausea/Vomiting Senna/Docusate Sodium (Senokot-S, [place]-Colace) 1 tablet PO DAILY PRN PRN PRN Reason: Constipation Simethicone (Mylicon) 80 mg PO TIDCM [facility] Last Admin: 05/01/20 09:37 Dose: 80 mg Documented by: Sodium Chloride () 10 - 40 ml IV UD PRN PRN Reason: SALINE FLUSH Last Admin: 05/01/20 09:38 Dose: 10 ml Documented by: Throat Lozenges (Cepacol Sore Throat Lozenge) 1 lozenge MUCOUS MEM Q2H PRN PRN PRN Reason: SORE THROAT STROKE Vital Signs/Narrative: Vital Signs Temp Pulse Resp BP Pulse Ox 05/01/20 09:35 98.3 F 92 18 106/53 L 97 05/01/20 07:00 75 Medical Necessity - Tobacco Use Smoking Status: Never smoker Tobacco Use: Non-smoker Assessment/Plan All Active Problems Sepsis (Acute) UTI (urinary tract infection) due to urinary indwelling catheter (Acute) Colon obstruction (Resolved) # Sepsis due to complicated UTI * SIRS criteria today is 1/4 (leucocytosis) * UA showed 3+ bacteria * on IV cefepime, based on previous culture results. * continue gentle hydration with IVF * urine and blood cultures pending * # Hypoglycemia * blood sugar on admission was 39. * blood sugar this morning is 65 * hold oral diabetes meds and home insulin. * check accuchecks q4hrly. * # Type 2 diabetes mellitus: insulin on hold o/a of hypoglycemia. ISS. Accuchecks q4hrs # Hypokalemia: potassium is 3.4 today. Will replace and monitor #Hypertension: lisinopril held on admission o/a of ANTONY. IV hydralazine prn # Hyperlipidemia: on statin # Multiple sclerosis: PT/OT on board. stable DVT prophylaxis: lovenox Inpatient E&M: 07118 Subs Hosp L2
--- NOTE | 2020-05-01 10:32 | CM.UR ---
Noted patient lives in [facility]. Alerting SW. Will anticipate return to [facility]. Jose Perez RN, CCM.
[2020-05-01] MEDS: Insulin Lispro 100 UNIT/ML INSULN.PEN SC ×3 (11:02→23:26)
[2020-05-01 11:16] LABS: Bedside Glucose 347 mg/dL (70-110)
[2020-05-01 17:41] LABS: Bedside Glucose 301 mg/dL (70-110)
--- NOTE | 2020-05-01 18:22 | CASEMGMT ---
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 Attempted to make contact with patient in room via phone call, patient unable to speak on the phone. Chart review completed further. Patient POA is Adama Pena patient brother. Telephone call to Garth. Galan confirming that patient is under termite control servicer care at [facility] in [place] and plan would be for patient to return when medically cleared. Adama with no further questions. Green sheet placed on patient chart in the event that patient is cleared over the weekend. Nursing staff updated. Rajni CHACON, CEDRICK
[2020-05-01] MEDS: Atorvastatin Calcium 10 MG Tablet PO (23:37)
[2020-05-01 23:51] LABS: Bedside Glucose 319 mg/dL (70-110)
[2020-05-02] VITALS (11 sets, daily range): BP systolic 106–127; BP diastolic 62–85; PULSE 64–93; RESP 16–17; TEMP 37.1–37.6; O2SAT 95–97
[2020-05-02] MEDS: ACETIC ACID 1,000 ML IRRIG.SOLN 30 ML IR ×3 (01:04→21:40)
[2020-05-02 05:23] LABS: Absolute Lymphocyte Count 0.86 X10^3/uL (0.83-4.51); Absolute Neutrophil Count 6.7 X10^3/uL (2.0-7.7); Basophil# 0.05 X10^3/uL; Basophil% 0.6 % (0-1); Eosinophils% 1.2 % (0-5); Hematocrit 37.2 % (40-54); Hemoglobin 11.9 g/dL (13.0-16.5); Lymphocyte # 0.86 X10^3/ul (4.0); Mean Corpuscular Hgb 30.4 pg (27.0-32.0); Mean Corpuscular Volume 94.9 fL (80-94); Mean Platelet Vol. 11.1 fl (6.2-12.0); Monocyte# 0.94 X10^3/uL; Monocyte% 10.9 % (0-10); NRBC Flagged by Analyzer 0 % (0-5); Neutrophil # 6.65 X10^3/uL (2.7-7.7); Platelet Count 153 K/mm3 (150-450); RBC Distribution Width CV 13.4 % (11.6-14.6); Red Blood Count 3.92 M/mm3 (4.6-6.2); White Blood Count 8.6 K/mm3 (4.4-11.0)
[2020-05-02 05:49] LABS: Anion Gap 7 (5-15); BUN 16 mg/dL (7-18); BUN/Creat Ratio 13.7 RATIO (10-20); Calcium,Total 8.4 mg/dL (8.5-10.1); Chloride 105 mmol/L (98-107); Creatinine, Serum 1.17 mg/dL (0.70-1.30); EST Glomerular Filtration Rate 69 mL/min (>60); Est Glom Filt Rate - Afr Amer 84 mL/min (>60); Estimated Creatinine Clearance 61.14 ml/min; Glucose 259 mg/dL (74-106); Potassium 3.7 mmol/L (3.5-5.1); Sodium Level 135 mmol/L (136-145)
--- NOTE | 2020-05-02 05:55 | EKG12_ITS ---
Test Reason : AM EKG Blood Pressure : / mmHG Vent. Rate : 087 BPM Atrial Rate : 087 BPM P-R Int : 152 ms QRS Dur : 088 ms QT Int : 352 ms P-R-T Axes : 044 042 007 degrees QTc Int : 423 ms Normal sinus rhythm Normal ECG When compared with ECG of 30-APR-2020 23:35, MANUAL COMPARISON REQUIRED, DATA IS UNCONFIRMED Confirmed by MOISES ONEAL, BENITO ([id number]), film editor supervisor DEEPIKA PLAZA ([id number]) on 05/05/2020 11:29:46 AM Referred By: LILLY Confirmed By:MADISON DE LEON MD
[2020-05-02] MEDS: Insulin Lispro 100 UNIT/ML INSULN.PEN SC ×4 (06:50→21:40)
[2020-05-02 07:01] LABS: Bedside Glucose 267 mg/dL (70-110)
[2020-05-02] MEDS: Multivitamins,Therapeutic Tablet 1 TABLET PO (08:44)
[2020-05-02] MEDS: Ascorbic Acid 500 MG Tablet PO (08:44)
[2020-05-02] MEDS: Calcium Carb/Vitamin D 1 TABLET Tablet PO ×2 (08:45→21:40)
[2020-05-02] MEDS: Enoxaparin 40 MG/0.4 ML Syringe SC (08:45)
[2020-05-02] MEDS: Menthol/Lanolin/Calamine/Znox 113 GM Tube 1 APPLIC TOPICAL ×2 (08:45→14:00)
[2020-05-02] MEDS: Lisinopril 2.5 MG Tablet PO (08:46)
--- NOTE | 2020-05-02 10:22 | PCM.PN.HOSP ---
Subjective: Patient seen and examined. He has no complaints today. Review of systems otherwise negative. Blood sugars have been in the 200s and 300s. He has remained hemodynamically stable. Vitals/I&O's: Vital Signs Temp Pulse Resp BP Pulse Ox 99.1 F 86 17 127/85 H 96 05/02/20 08:35 05/02/20 08:35 05/02/20 08:35 05/02/20 08:35 05/02/20 08:35 Oxygen Delivery Method Room Air Weight: 164 lb 0.383 oz Body Mass Index (BMI) 27.5 Finger Stick Blood Glucose 177 Intake and Output for Last 24 Hours 04/30/20 05/01/20 05/02/20 23:59 23:59 23:59 Intake Total 2793.33 / 2793.33 350 / 350 Output Total 3150 / 3150 850 / 850 Balance -356.67 / -356.67 -500 / -500 General: Alert, Oriented x3, Cooperative, No apparent distress HEENT: Atraumatic, PERRLA, EOMI, Normocephalic Oral: Dry Mucosa Neck: Supple, No JVD, Negative Carotid Bruits Lungs: Clear to auscultation, Normal air movement, No rhonchi, No wheeze Cardiovascular: Regular rate, Regular Rhythm, Normal S1, Normal S2, No murmurs Abdomen: Bowel Sounds Present, Soft, Non Tender, - - mildly distended, suprapubic catheter in place; l Extremities: No clubbing, No cyanosis, No edema, Capillary Refill Less than 3 Seconds Skin: No rashes, No breakdown Musculoskeletal: No Tenderness to Palpation of Joints or Extremities Lymphatic: No Cervical, Supraclavicular, or Inguinal Adenopathy Neurological: Cranial nerves II-XII grossly intact, Neuro grossly intact, Motor Exam 5/5 strength throughout Psych/Mental Status: Normal Affect, Appropriate, Alert and oriented to time, place, person, mood and affect Microbiology Past 72 Hours 04/30/20 23:25 Urine Catheter - Arizmendi Urine Culture - Preliminary Gram negative milo 05/01/20 02:00 Stool Enteric Bacteriology - Final Yersinia enterocolitica 05/01/20 02:00 Stool C. difficile DNA Amplification - Final Laboratory Results 05/01/20 11:01: POC Glucose 347 H 05/01/20 17:33: POC Glucose 301 H 05/01/20 23:25: POC Glucose 319 H 05/02/20 04:42: WBC 8.6, RBC 3.92 L, Hgb 11.9 L, Hct 37.2 L, MCV 94.9 H, MCH 30.4, MCHC 32.0, RDW Std Deviation 47.0 H, RDW Coeff of Inna 13.4, Plt Count 153, MPV 11.1, Immature Gran % (Auto) 0.300, Neut % (Auto) 77.0 H, Lymph % (Auto) 10.0 L, [place] % (Auto) 10.9 H, Eos % (Auto) 1.2, Baso % (Auto) 0.6, Absolute Neuts (auto) 6.7, Absolute Lymphs (auto) 0.86, Nucleated RBC % 0 05/02/20 04:42: Sodium 135 L, Potassium 3.7, Chloride 105, Carbon Dioxide 23.0, Anion Gap 7, BUN 16, Creatinine 1.17, Estim Creat Clear Calc 61.14, Est GFR (MDRD) Af Amer 84, Est GFR (MDRD) Non-Af 69, BUN/Creatinine Ratio 13.7, Glucose 259 H, Calcium 8.4 L 05/02/20 06:48: POC Glucose 267 H Diagnostic Data Chest X-Ray 04/30/20 23:40 IMPRESSION: Low lung volumes without definite acute abnormality. Gaseous bowel distention. at 2358 Reported and signed by: Kim Rader MD Electronically Signed: Kim Rader MD at 23:58 EDT Tel , Service support , Current Medications Acetaminophen (Tylenol) 650 mg PO Q6H PRN PRN PRN Reason: Pain Score 1-10/Temp > 100.7 F Acetic Acid (Acetic Acid) 30 ml IR BID [facility] Last Admin: 05/02/20 08:45 Dose: 30 ml Documented by: Al Hydroxide/Mg Hydroxide (Mylanta Ii) 30 ml PO Q6H PRN PRN PRN Reason: Gastric Burning Albuterol Sulfate (Ventolin Aerosols) 2.5 mg INHALATION Q2H PRN PRN PRN Reason: Dyspnea, wheezing Ascorbic Acid (Vitamin C) 500 mg PO DAILY@0800 [facility] Last Admin: 05/02/20 08:44 Dose: 500 mg Documented by: Atorvastatin Calcium (Lipitor) 10 mg PO QHS [facility] Last Admin: 05/01/20 23:37 Dose: 10 mg Documented by: Calamine/Phenol (Calmoseptine Ointment) 1 applic TOPICAL 4X/DAY [facility]; Protocol Last Admin: 05/02/20 08:45 Dose: 1 applicatio Documented by: Calcitriol (Rocaltrol) 0.25 mcg PO MOWEFR [facility] Calcium/Vitamin D (Os-Phillip 500mg + D) 1 tablet PO BID [facility] Last Admin: 05/02/20 08:45 Dose: 1 tablet Documented by: Dextrose (D50w Syringe) 0 gm IV X1 PRN; Protocol PRN Reason: Hypoglycemia Docusate Sodium (Colace) 100 mg PO BID PRN PRN PRN Reason: CONSTIPATION Enoxaparin Sodium (Lovenox) 40 mg SC DAILY [facility] Last Admin: 05/02/20 08:45 Dose: 40 mg Documented by: Glucagon () 1 mg IM .X1 PRN PRN Reason: Hypoglycemia Glucose (Instant Glucose) 15 gm PO PRN PRN PRN Reason: BLOOD SUGAR Guaifenesin (Robitussin) 20 ml PO Q4H PRN PRN PRN Reason: COUGH Cefepime HCl 1 gm/ Sodium (Chloride) 50 mls @ 100 mls/hr IV Q8 [facility] Last Infusion: 05/02/20 07:21 Dose: Infused Documented by: Sodium Chloride () 250 mls @ 15 mls/hr IV .[id number] PRN PRN Reason: Saline Flush Sodium Chloride () 250 mls @ 15 mls/hr IV .[id number] PRN PRN Reason: Additional IVPB Infusion Insulin Glargine (Lantus (Bk)) 22 units SC DAILY [facility] Insulin Human Lispro (Humalog Kwikpen (Bk)) 0 unit SC ACHS [facility]; Protocol Last Admin: 05/02/20 06:50 Dose: 2 units Documented by: Lisinopril (Zestril) 2.5 mg PO DAILY [facility] Last Admin: 05/02/20 08:46 Dose: 2.5 mg Documented by: Magnesium Hydroxide (Milk Of Magnesia) 30 ml PO DAILY PRN PRN PRN Reason: Constipation Melatonin (Melatonin) 3 mg PO QHS PRN PRN PRN Reason: INSOMNIA Morphine Sulfate () 2 mg IV Q3H PRN PRN PRN Reason: Pain Score 6-10 Multivitamins (Multivitamin) 1 tablet PO DAILY@0800 [facility] Last Admin: 05/02/20 08:44 Dose: 1 tablet Documented by: Nitroglycerin (Nitrostat) 0.4 mg SUBLINGUAL Q5M PRN PRN Reason: CARDIAC/CHEST PAIN Non-Formulary Medication (Bisacodyl) 10 mg RC PRN PRN PRN Reason: Constipation Ondansetron HCl (Zofran) 4 mg IV Q8H PRN PRN PRN Reason: NAUSEA/VOMITING Oxycodone HCl (Oxyir) 5 mg PO Q4H PRN PRN PRN Reason: Pain Score 4-5 Polyethylene Glycol (Miralax) 17 gm PO DAILY [facility] Last Admin: 05/02/20 08:45 Dose: Not Given Documented by: Prochlorperazine Edisylate (Compazine Iv) 5 mg IV Q4H PRN PRN PRN Reason: Breakthrough Nausea/Vomiting Senna/Docusate Sodium (Senokot-S, Rosalina-Colace) 1 tablet PO DAILY PRN PRN PRN Reason: Constipation Simethicone (Mylicon) 80 mg PO TIDCM [facility] Last Admin: 05/02/20 08:44 Dose: 80 mg Documented by: Sodium Chloride () 10 - 40 ml IV UD PRN PRN Reason: SALINE FLUSH Last Admin: 05/01/20 09:38 Dose: 10 ml Documented by: Throat Lozenges (Cepacol Sore Throat Lozenge) 1 lozenge MUCOUS MEM Q2H PRN PRN PRN Reason: SORE THROAT STROKE Vital Signs/Narrative: Vital Signs Temp Pulse Resp BP Pulse Ox 05/02/20 08:35 99.1 F 86 17 127/85 H 96 05/02/20 07:02 96 Medical Necessity - Tobacco Use Smoking Status: Never smoker Tobacco Use: Non-smoker Assessment/Plan All Active Problems Sepsis (Acute) UTI (urinary tract infection) due to urinary indwelling catheter (Acute) Colon obstruction (Resolved) # Sepsis due to complicated UTI SIRS criteria today is 0/4. WBc down to 8.6 today UA showed 3+ bacteria on IV cefepime, based on previous culture results. continue gentle hydration with IVF urine and blood cultures pending # Hypoglycemia: resolved. # Type 2 diabetes mellitus: hypoglycemia has resolved. WIll resume home lantus dose. ISS. Accuchecks ACHS. # Hypokalemia: resolved. K is 3.7 #Hypertension: will resume lisinopril. # Hyperlipidemia: on statin # Multiple sclerosis: PT/OT on board. stable DVT prophylaxis: lovenox Disposition: for DC tomorrow if glucose remains stable. Inpatient E&M: 71253 Subs Hosp L2
[2020-05-02 11:35] LABS: Bedside Glucose 394 mg/dL (70-110)
[2020-05-02] MEDS: 0.9% Saline Lock 10 ML Syringe IV ×2 (15:16→17:49)
--- NOTE | 2020-05-02 16:31 | NURSING ---
Dawna from [employer] for update. Same given.
[2020-05-02] MEDS: CLARIFY ORDER NOTE (16:38)
[2020-05-02 18:01] LABS: Bedside Glucose 215 mg/dL (70-110)
[2020-05-02] MEDS: Atorvastatin Calcium 10 MG Tablet PO (21:40)
[2020-05-02 21:51] LABS: Bedside Glucose 256 mg/dL (70-110)
--- NOTE | 2020-05-02 22:26 | NURSING ---
Medications lated d/t helping pt in another room. Tootie, RN
--- NOTE | 2020-05-02 22:27 | NURSING ---
VS late d/t assisting another pt at the time VS were due. CMast, RN
[2020-05-03] VITALS (7 sets, daily range): BP systolic 106–129; BP diastolic 56–76; PULSE 62–76; RESP 16–18; TEMP 36.4–37.2; O2SAT 95–99
[2020-05-03 06:05] LABS: Absolute Lymphocyte Count 0.71 X10^3/uL (0.83-4.51); Absolute Neutrophil Count 5.2 X10^3/uL (2.0-7.7); Basophil# 0.04 X10^3/uL; Basophil% 0.6 % (0-1); Eosinophil# 0.15 X10^3/uL; Eosinophils% 2.2 % (0-5); Hematocrit 40.8 % (40-54); Hemoglobin 12.3 g/dL (13.0-16.5); Lymphocyte # 0.71 X10^3/ul (4.0); Lymphocyte % 10.2 % (19-41); Mean Corp Hgb Conc 30.1 g/dL (32-36); Mean Corpuscular Hgb 30.1 pg (27.0-32.0); Mean Platelet Vol. 10.5 fl (6.2-12.0); Monocyte# 0.81 X10^3/uL; Monocyte% 11.7 % (0-10); NRBC Flagged by Analyzer 0 % (0-5); Platelet Count 162 K/mm3 (150-450); RBC Distribution Width CV 13.2 % (11.6-14.6); RBC Distribution Width SD 48.5 fl (35.1-43.9); Red Blood Count 4.08 M/mm3 (4.6-6.2); White Blood Count 6.9 K/mm3 (4.4-11.0)
[2020-05-03] MEDS: Insulin Lispro 100 UNIT/ML INSULN.PEN SC ×2 (06:21→11:31)
[2020-05-03 06:26] LABS: Bedside Glucose 190 mg/dL (70-110)
[2020-05-03 06:27] LABS: Anion Gap 7 (5-15); BUN 18 mg/dL (7-18); BUN/Creat Ratio 16.5 RATIO (10-20); Calcium,Total 8.6 mg/dL (8.5-10.1); Chloride 107 mmol/L (98-107); Creatinine, Serum 1.09 mg/dL (0.70-1.30); EST Glomerular Filtration Rate 75 mL/min (>60); Est Glom Filt Rate - Afr Amer 91 mL/min (>60); Estimated Creatinine Clearance 65.63 ml/min; Glucose 183 mg/dL (74-106); Potassium 3.5 mmol/L (3.5-5.1); Sodium Level 139 mmol/L (136-145)
[2020-05-03] MEDS: Multivitamins,Therapeutic Tablet 1 TABLET PO (08:09)
[2020-05-03] MEDS: Ascorbic Acid 500 MG Tablet PO (08:11)
[2020-05-03 09:42] LABS: Hemoglobin A1c 6.1 % (3.8-5.6)
[2020-05-03] MEDS: Calcium Carb/Vitamin D 1 TABLET Tablet PO (10:09)
[2020-05-03] MEDS: Calcitriol 0.25 MCG Capsule PO (10:10)
[2020-05-03] MEDS: Lisinopril 2.5 MG Tablet PO (10:13)
[2020-05-03] MEDS: Enoxaparin 40 MG/0.4 ML Syringe SC (10:22)
[2020-05-03] MEDS: ACETIC ACID 1,000 ML IRRIG.SOLN 30 ML IR (10:33)
--- NOTE | 2020-05-03 10:58 | CASEMGMT ---
Addendum entered by Iman Ashley 05/03/20 12:09: CLAY called [facility] back again and spoke with Tamra. 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 SW let her know SW will work on getting orders faxed and will let her know when a time has been set up. CLAY will notify physician that patient can return today. Iman CHACON Original Note: Patient is from [facility] in [place]. CLAY called and left a message for Tamra in admissions inquiring if he requires a pre-cert to return. Await return call. Iman CHACON
[2020-05-03 11:16] LABS: Bedside Glucose 394 mg/dL (70-110)
--- NOTE | 2020-05-03 11:53 | PHA.DC.MR ---
Pharmacy Service has performed discharge medication reconciliation for this patient upon transfer to [facility]. The patient's discharge medication list was reviewed for discrepancies and discrepancies were resolved. Home Medications Ascorbic Acid [Vitamin C] 500 mg PO DAILY@0800 05/30/15 Atorvastatin Calcium [Lipitor] 10 mg PO QHS 05/30/15 Calcitriol [Rocaltrol] 0.25 mcg PO MOWEFR 05/30/15 Calcium Carbonate/Vitamin D3 [Calcium 600 + D Tablet] 1 each PO BID 05/30/15 Glucagon,Human Recombinant [Glucagen] 1 mg IM DAILY PRN PRN 05/30/15 Magnesium Hydroxide [Milk Of Magnesia] 30 ml PO DAILY PRN PRN 05/30/15 Nitroglycerin (INPATIENT USE) [Nitrostat] 0.4 mg SUBLINGUAL Q5M PRN 05/30/15 Docusate Sodium [Colace] 100 mg PO BID PRN PRN 04/21/16 Guaifenesin [Diabetic Tussin Ex] 100 mg PO Q4H PRN PRN 04/21/16 Insulin Aspart [Novolog Flexpen] See Protocol SC TIDCM 05/17/16 Acetic Acid 30 ml IR BID 02/03/17 Bisacodyl 10 mg RC PRN PRN 02/03/17 Dextrose [Glucose Gel] 15 gm PO PRN PRN 02/03/17 Lisinopril [Zestril] 2.5 mg PO DAILY 02/03/17 Mag Hydrox/Aluminum Hyd/Simeth [Antacid Suspension] 30 ml PO Q6H PRN PRN 02/03/17 Sennosides/Docusate Sodium [Senna Plus Tablet] 1 each PO PRN PRN 02/03/17 SimETHICONE [Mylicon] 80 mg PO TIDCM 02/03/17 Acetaminophen [Tylenol] 650 mg PO Q4H PRN PRN 07/22/18 Polyethylene Glycol 3350 [Miralax] 17 gm PO DAILY packet 03/11/19 Insulin Glargine,Hum.rec.anlog [Lantus] 22 unit SQ DAILY 05/01/20 Multivitamin 1 ea PO DAILY 05/01/20
[2020-05-03 11:58] LABS: Pathologist Review Reviewed
[2020-05-03 12:04] LABS: Pathologist Review Reviewed
--- NOTE | 2020-05-03 13:06 | PCM.TXEXTCAR ---
- Diet 05/01/20 13:29 Diet: Consistent Carb - Calorie Controlled Food consistency:: Regular Liquid Consistency:: Regular/Thin Dietary Modifications:: Cardiac / Heart Healthy How many daily calories?: 1800 calorie - Routine Orders/Code Status Keep PO Greater than or Equal to (%): 94 Routine Lab Work: CBC - within 3 days, BMP - within 3 days Code Status: DNRCC-A - Wound(s) BLE Wound Type: Abrasion - Therapies Weight Bearing: Weight bearing as tolerated Physical Therapy: Eval and Treat Occupational Therapy: Eval and Treat - Allergies/Procedures Done in Hospital Allergies/Adverse Reactions: Allergies Penicillins Adverse Reaction (Verified 04/30/20 23:05) Unknown Procedures: None - Type of Care/Length of Stay Estimated LOS: Convalescent Care Less Than 30 days Type of Care Needed: Skilled Rehab Potential: Good Prognosis: Good - Additional Orders/Day of Discharge Day of Discharge: 05/03/20 - Follow Up Care Primary Care Physician: Michael Echavarria MD [Primary Care Provider] - Please follow up with your Primary Care Physician in: within 1-2 weeks of discharge
--- NOTE | 2020-05-03 13:25 | DS.PCM_ITS ---
Discharge Date and Diagnosis - Problem List Patient Problems: Active and Suspected Problems Sepsis secondary to UTI (Acute) Hypoglycemia (Acute) Hypokalemia (Acute) Yersinia enterocolitica food poisoning (Acute) UTI (urinary tract infection) due to urinary indwelling catheter (Acute) Date of Admission: 05/01/20 Date of Discharge: 05/03/20 - Primary Discharge Diagnosis Acute Problems: Sepsis secondary to providentia/gram-negative milo UTI Yersinia enterocolitica infection Hypokalemia Hypomagnesemia Hypoglycemia Dehydration, POA - Secondary Discharge Diagnosis Chronic Problems: Chronic Problems Diabetes (Chronic) Neurogenic bladder (Chronic) status post suprapubic catheter Depression (Chronic) Anxiety (Chronic) Vitamin D deficiency (Chronic) GERD (gastroesophageal reflux disease) (Chronic) DM type 1 (diabetes mellitus, type 1) (Chronic) Multiple sclerosis (Chronic) Hospital Course and Treatment Imaging Results: Clinical Impression(s) from Imaging Studies Chest X-Ray 04/30/20 23:40 IMPRESSION: Low lung volumes without definite acute abnormality. Gaseous bowel distention. at 2358 Reported and signed by: Kim Rader MD Electronically Signed: Kim Rader MD at 23:58 EDT Tel , Service support , Infectious disease Operations: None Procedures: None Summary of Care Provided: The patient is a 55 year old M with past medical history of multiple sclerosis, neurogenic bladder with chronic suprapubic catheter, hypertension, who was admitted with block during catheter, fevers. Patient's work-up in the ED was consistent with sepsis secondary to UTI. Lactic acid was 1.4. He was started on IV cefepime. His urine cultures came back growing procidentia and gram-negative milo. Blood cultures x2 were negative. Patient had episodes of diarrhea, stool for enteric panel showed negative findings for C. difficile but positive for Yersinia enterocolitica. Patient's diarrhea subsequently improved. Patient was discharged on 5 more days of oral Cipro. Final urine cultures were pending at the time of discharge. He had no abdominal pain, fever or chills at time of discharge Patient Problems: Active and Suspected Problems Sepsis secondary to UTI (Acute) Hypoglycemia (Acute) Hypokalemia (Acute) Yersinia enterocolitica food poisoning (Acute) UTI (urinary tract infection) due to urinary indwelling catheter (Acute) Subjective: On the day of discharge, patient was seen and examined. He denied any new complaints. He has had one bowel movement. Objective: Physical exam: General: Alert, Oriented x3, Cooperative, No apparent distress HEENT: Atraumatic, PERRLA, EOMI, Normocephalic Oral: Dry Mucosa Neck: Supple, No JVD, Negative Carotid Bruits Lungs: Clear to auscultation, Normal air movement, No rhonchi, No wheeze Cardiovascular: Regular rate, Regular Rhythm, Normal S1, Normal S2, No murmurs Abdomen: Bowel Sounds Present, Soft, Non Tender, - - mildly distended, suprapubic catheter in place Extremities: No clubbing, No cyanosis, No edema, healing scabs/abrasions on the leg Skin: No rashes, No breakdown Musculoskeletal: No Tenderness to Palpation of Joints or Extremities Lymphatic: No Cervical, Supraclavicular, or Inguinal Adenopathy Neurological: Cranial nerves II-XII grossly intact, Neuro grossly intact, Motor Exam 5/5 strength throughout Psych/Mental Status: Normal Affect, Appropriate, Alert and oriented to time, place, person, mood and affect - Physical Exam Vitals/I&O's: Vital Signs Temp Pulse Resp BP Pulse Ox 97.6 F L 74 16 129/72 H 99 05/03/20 13:09 05/03/20 13:09 05/03/20 13:09 05/03/20 13:09 05/03/20 13:09 Oxygen Delivery Method Room Air Weight: 74.4 kg Body Mass Index (BMI) 27.5 Finger Stick Blood Glucose 177 Intake and Output for Last 24 Hours 05/01/20 05/02/20 05/03/20 23:59 23:59 23:59 Intake Total 2793.33 / 2793.33 940.25 / 940.25 450 / 450 Output Total 3150 / 3150 3375 / 3375 1050 / 1050 Balance -356.67 / -356.67 -2434.75 / -2434.75 -600 / -600 Microbiology Past 72 Hours 04/30/20 23:20 Blood Culture (Wb) - Venous Blood Culture - Preliminary No growth in 48 hours. 04/30/20 23:32 Blood Culture (Wb) - Venous Blood Culture - Preliminary No growth in 48 hours. 04/30/20 23:25 Urine Catheter - Arizmendi Urine Culture - Preliminary Providencia stuartii Gram negative milo Gram positive organism 05/01/20 02:00 Stool Enteric Bacteriology - Final Yersinia enterocolitica 05/01/20 02:00 Stool C. difficile DNA Amplification - Final Laboratory Results 04/30/20 23:20: Diff Path Review Reviewed 05/01/20 06:37: Diff Path Review Reviewed 05/02/20 17:28: POC Glucose 215 H 05/02/20 21:35: POC Glucose 256 H 05/03/20 05:10: WBC 6.9, RBC 4.08 L, Hgb 12.3 L, Hct 40.8, MCV 100.0 H D, MCH 30.1, MCHC 30.1 L D, RDW Std Deviation 48.5 H, RDW Coeff of Inna 13.2, Plt Count 162, MPV 10.5, Immature Gran % (Auto) 0.300, Neut % (Auto) 75.0 H, Lymph % (Auto) 10.2 L, [place] % (Auto) 11.7 H, Eos % (Auto) 2.2, Baso % (Auto) 0.6, Absolute Neuts (auto) 5.2, Absolute Lymphs (auto) 0.71 L, Nucleated RBC % 0 05/03/20 05:10: Sodium 139, Potassium 3.5, Chloride 107, Carbon Dioxide 25.0, Anion Gap 7, BUN 18, Creatinine 1.09, Estim Creat Clear Calc 65.63, Est GFR (MDRD) Af Amer 91, Est GFR (MDRD) Non-Af 75, BUN/Creatinine Ratio 16.5, Glucose 183 H, Calcium 8.6 05/03/20 05:10: Hemoglobin A1c 6.1 H 05/03/20 06:19: POC Glucose 190 H 05/03/20 11:04: POC Glucose 394 H Current Medications Acetaminophen (Tylenol) 650 mg PO Q6H PRN PRN PRN Reason: Pain Score 1-10/Temp > 100.7 F Acetic Acid (Acetic Acid) 30 ml IR BID [facility] Last Admin: 05/03/20 10:33 Dose: 30 ml Documented by: Al Hydroxide/Mg Hydroxide (Mylanta Ii) 30 ml PO Q6H PRN PRN PRN Reason: Gastric Burning Albuterol Sulfate (Ventolin Aerosols) 2.5 mg INHALATION Q2H PRN PRN PRN Reason: Dyspnea, wheezing Ascorbic Acid (Vitamin C) 500 mg PO DAILY@0800 [facility] Last Admin: 05/03/20 08:11 Dose: 500 mg Documented by: Atorvastatin Calcium (Lipitor) 10 mg PO QHS [facility] Last Admin: 05/02/20 21:40 Dose: 10 mg Documented by: Bisacodyl (Dulcolax) 10 mg RECTAL DAILY PRN PRN PRN Reason: Constipation Calamine/Phenol (Calmoseptine Ointment) 1 applic TOPICAL 4X/DAY [facility]; Protocol Last Admin: 05/03/20 10:21 Dose: Not Given Documented by: Calcitriol (Rocaltrol) 0.25 mcg PO MOWEFR [facility] Last Admin: 05/03/20 10:10 Dose: 0.25 mcg Documented by: Calcium/Vitamin D (Os-Phillip 500mg + D) 1 tablet PO BID [facility] Last Admin: 05/03/20 10:09 Dose: 1 tablet Documented by: Dextrose (D50w Syringe) 0 gm IV X1 PRN; Protocol PRN Reason: Hypoglycemia Docusate Sodium (Colace) 100 mg PO BID PRN PRN PRN Reason: CONSTIPATION Enoxaparin Sodium (Lovenox) 40 mg SC DAILY [facility] Last Admin: 05/03/20 10:22 Dose: 40 mg Documented by: Glucagon () 1 mg IM .X1 PRN PRN Reason: Hypoglycemia Glucose (Instant Glucose) 15 gm PO PRN PRN PRN Reason: BLOOD SUGAR Guaifenesin (Robitussin) 20 ml PO Q4H PRN PRN PRN Reason: COUGH Cefepime HCl 1 gm/ Sodium (Chloride) 50 mls @ 100 mls/hr IV Q8 [facility] Last Infusion: 05/03/20 06:52 Dose: Infused Documented by: Sodium Chloride () 250 mls @ 15 mls/hr IV .[id number] PRN PRN Reason: Saline Flush Last Infusion: 05/03/20 06:52 Dose: 15 mls/hr Documented by: Sodium Chloride () 250 mls @ 15 mls/hr IV .[id number] PRN PRN Reason: Additional IVPB Infusion Insulin Glargine (Lantus (Bk)) 24 units SC DAILY [facility] Insulin Human Lispro (Humalog Kwikpen ([facility])) 0 unit SC ACHS [facility]; Protocol Last Admin: 05/03/20 11:31 Dose: 5 units Documented by: Lisinopril (Zestril) 2.5 mg PO DAILY [facility] Last Admin: 05/03/20 10:13 Dose: 2.5 mg Documented by: Magnesium Hydroxide (Milk Of Magnesia) 30 ml PO DAILY PRN PRN PRN Reason: Constipation Melatonin (Melatonin) 3 mg PO QHS PRN PRN PRN Reason: INSOMNIA Morphine Sulfate () 2 mg IV Q3H PRN PRN PRN Reason: Pain Score 6-10 Multivitamins (Multivitamin) 1 tablet PO DAILY@0800 [facility] Last Admin: 05/03/20 08:09 Dose: 1 tablet Documented by: Nitroglycerin (Nitrostat) 0.4 mg SUBLINGUAL Q5M PRN PRN Reason: CARDIAC/CHEST PAIN Ondansetron HCl (Zofran) 4 mg IV Q8H PRN PRN PRN Reason: NAUSEA/VOMITING Oxycodone HCl (Oxyir) 5 mg PO Q4H PRN PRN PRN Reason: Pain Score 4-5 Polyethylene Glycol (Miralax) 17 gm PO DAILY [facility] Last Admin: 05/03/20 10:19 Dose: Not Given Documented by: Prochlorperazine Edisylate (Compazine Iv) 5 mg IV Q4H PRN PRN PRN Reason: Breakthrough Nausea/Vomiting Senna/Docusate Sodium (Senokot-S, Rosalina-Colace) 1 tablet PO DAILY PRN PRN PRN Reason: Constipation Simethicone (Mylicon) 80 mg PO TIDCM [facility] Last Admin: 05/03/20 11:29 Dose: 80 mg Documented by: Sodium Chloride () 10 - 40 ml IV UD PRN PRN Reason: SALINE FLUSH Last Admin: 05/02/20 17:49 Dose: 10 ml Documented by: Throat Lozenges (Cepacol Sore Throat Lozenge) 1 lozenge MUCOUS MEM Q2H PRN PRN PRN Reason: SORE THROAT Discharge Diet: Low fat/ Low Cholesterol, 2000 mg Sodium Diet Home Medications: Medications to take at Discharge Ascorbic Acid [Vitamin C] 500 mg PO DAILY@0800 05/30/15 Atorvastatin Calcium [Lipitor] 10 mg PO QHS 05/30/15 Calcitriol [Rocaltrol] 0.25 mcg PO MOWEFR 05/30/15 Calcium Carbonate/Vitamin D3 [Calcium 600 + D Tablet] 1 each PO BID 05/30/15 Glucagon,Human Recombinant [Glucagen] 1 mg IM DAILY PRN PRN 05/30/15 Nitroglycerin (INPATIENT USE) [Nitrostat] 0.4 mg SUBLINGUAL Q5M PRN 05/30/15 Docusate Sodium [Colace] 100 mg PO BID PRN PRN 04/21/16 Guaifenesin [Diabetic Tussin Ex] 100 mg PO Q4H PRN PRN 04/21/16 Acetic Acid 30 ml IR BID 02/03/17 Bisacodyl 10 mg RC PRN PRN 02/03/17 Dextrose [Glucose Gel] 15 gm PO PRN PRN 02/03/17 Lisinopril [Zestril] 2.5 mg PO DAILY 02/03/17 Sennosides/Docusate Sodium [Senna Plus Tablet] 1 each PO PRN PRN 02/03/17 SimETHICONE [Mylicon] 80 mg PO TIDCM 02/03/17 Acetaminophen [Tylenol] 650 mg PO Q4H PRN PRN 07/22/18 Polyethylene Glycol 3350 [Miralax] 17 gm PO DAILY packet 03/11/19 Multivitamin 1 ea PO DAILY 05/01/20 Ciprofloxacin [Cipro] 500 mg PO BID 5 Days #10 tab 05/03/20 Insulin Glargine [Lantus SoloStar Pen] 24 units SUBCUT DAILY pen 05/03/20 Insulin Lispro [Humalog KwikPen] See Protocol SUBCUT ACHS insuln.pen 05/03/20 Following Prescriptions Were Given to Patient: Ciprofloxacin [Cipro] 500 mg PO BID 5 Days #10 tab Primary Care Physician: Michael Echavarria MD [Primary Care Provider] - Please follow up with your Primary Care Physician in: within 1-2 weeks of discharge Disposition: Shelter facility Minutes spent on discharge:: 40 Patient Condition:: Stable Medical Necessity - Tobacco Use Smoking Status: Never smoker Tobacco Use: Non-smoker Meaningful Use Info Meaningful Use Diagnoses (Choose all that apply): None applicable Inpatient E&M: 45621 Disch Hosp
--- NOTE | 2020-05-03 13:41 | CASEMGMT ---
SW called [facility] and placed patient on the will call list for wc back to [facility]. Awaiting med list. Iman ALLISON MSW
--- NOTE | 2020-05-03 14:16 | CASEMGMT ---
CLAY received orders. CLAY faxed orders to [facility]. CLAY called [facility] and arranged for patient to get picked up at via [employer] van. 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 CLAY also called patient's brother, Adama and let him know. Plan: d/c back to [facility] in [place] under intermediate level of care. [facility] transported him via [employer] van. Iman ALLISON MSW
--- NOTE | 2020-05-03 14:21 | CON.PCM_ITS ---
Problem List (1) UTI (urinary tract infection) due to urinary indwelling catheter Status: Acute Qualifiers: Indwelling urinary catheter type: unspecified Reason for Consult: uti Consulted by: Dr. Duron History of Present Illness: The patient is a 55 year old M h/o CKD stage III, Multiple Sclerosis, Dementia unclear type without behavioral disturbance history, Neurogenic bladder with chronic suprapubic catheter, HTN, HLD, GERD, Diabetes mellitus type II, Anxiety and Depression who presents to the [facility] ED on 05/01/20 with history of difficulties with catheter function at facility and noted block, unclear timeline with onset fevers and discomfort with concern for infection prompting referral to the ED. Has suprapubic cath in place. Admitted on cefepime, feeling better, no complaints today. Denies fever, cough, abd pain, or n/v/d. Full ROS performed and neg except as noted above. - Medical History Past Medical History (Chronic Problems): Chronic Problems Diabetes (Chronic) Neurogenic bladder (Chronic) status post suprapubic catheter Depression (Chronic) Anxiety (Chronic) Vitamin D deficiency (Chronic) GERD (gastroesophageal reflux disease) (Chronic) DM type 1 (diabetes mellitus, type 1) (Chronic) Multiple sclerosis (Chronic) Allergies/Adverse Reactions: Allergies Penicillins Adverse Reaction (Verified 04/30/20 23:05) Unknown Home Medications: Ambulatory Orders Medication Instructions Recorded Ascorbic Acid [Vitamin C] 500 mg PO DAILY@0800 05/30/15 Atorvastatin Calcium [Lipitor] 10 mg PO QHS 05/30/15 Calcitriol [Rocaltrol] 0.25 mcg PO MOWEFR 05/30/15 Calcium Carbonate/Vitamin D3 1 each PO BID 05/30/15 [Calcium 600 + D Tablet] Glucagon,Human Recombinant 1 mg IM DAILY PRN PRN 05/30/15 [Glucagen] Nitroglycerin (INPATIENT USE) 0.4 mg SUBLINGUAL Q5M PRN 05/30/15 [Nitrostat] Docusate Sodium [Colace] 100 mg PO BID PRN PRN 04/21/16 Guaifenesin [Diabetic Tussin Ex] 100 mg PO Q4H PRN PRN 04/21/16 Acetic Acid 30 ml IR BID 02/03/17 Bisacodyl 10 mg RC PRN PRN 02/03/17 Dextrose [Glucose Gel] 15 gm PO PRN PRN 02/03/17 Lisinopril [Zestril] 2.5 mg PO DAILY 02/03/17 Sennosides/Docusate Sodium [Senna 1 each PO PRN PRN 02/03/17 Plus Tablet] SimETHICONE [Mylicon] 80 mg PO TIDCM 02/03/17 Acetaminophen [Tylenol] 650 mg PO Q4H PRN PRN 07/22/18 Polyethylene Glycol 3350 [Miralax] 17 gm PO DAILY packet 03/11/19 Multivitamin 1 ea PO DAILY 05/01/20 Ciprofloxacin [Cipro] 500 mg PO BID 5 Days #10 tab 05/03/20 Insulin Glargine [Lantus SoloStar 24 units SUBCUT DAILY pen 05/03/20 Pen] Insulin Lispro [Humalog KwikPen] See Protocol SUBCUT ACHS 05/03/20 insuln.pen - Social History Tobacco Use: non-smoker Vital Signs Temp Pulse Resp BP Pulse Ox 97.6 F L 74 16 129/72 H 99 05/03/20 13:09 05/03/20 13:09 05/03/20 13:09 05/03/20 13:09 05/03/20 13:09 Oxygen Delivery Method Room Air Weight: 74.4 kg Body Mass Index (BMI) 27.5 Finger Stick Blood Glucose 177 Microbiology Past 72 Hours 04/30/20 23:20 Blood Culture - Preliminary Blood Culture (Wb) - Venous No growth in 48 hours. 04/30/20 23:32 Blood Culture - Preliminary Blood Culture (Wb) - Venous No growth in 48 hours. 04/30/20 23:25 Urine Culture - Preliminary Urine Catheter - Arizmendi Providencia stuartii Gram negative milo Gram positive organism 05/01/20 02:00 Enteric Bacteriology - Final Stool Yersinia enterocolitica C. difficile DNA Amplification - Final Laboratory Tests Past 24 Hrs 04/30/20 05/01/20 05/03/20 23:20 06:37 05:10 WBC 6.9 RBC 4.08 L Hgb 12.3 L Hct 40.8 MCV 100.0 H D MCH 30.1 MCHC 30.1 L D RDW Std Deviation 48.5 H RDW Coeff of Inna 13.2 Plt Count 162 MPV 10.5 Immature Gran % (Auto) 0.300 Neut % (Auto) 75.0 H Lymph % (Auto) 10.2 L [place] % (Auto) 11.7 H Eos % (Auto) 2.2 Baso % (Auto) 0.6 Absolute Neuts (auto) 5.2 Absolute Lymphs (auto) 0.71 L Nucleated RBC % 0 Diff Path Review Reviewed Reviewed Sodium Potassium Chloride Carbon Dioxide Anion Gap BUN Creatinine Estim Creat Clear Calc Est GFR (MDRD) Af Amer Est GFR (MDRD) Non-Af BUN/Creatinine Ratio Glucose Hemoglobin A1c Calcium 05/03/20 05/03/20 05:10 05:10 WBC RBC Hgb Hct MCV MCH MCHC RDW Std Deviation RDW Coeff of Inna Plt Count MPV Immature Gran % (Auto) Neut % (Auto) Lymph % (Auto) [place] % (Auto) Eos % (Auto) Baso % (Auto) Absolute Neuts (auto) Absolute Lymphs (auto) Nucleated RBC % Diff Path Review Sodium 139 Potassium 3.5 Chloride 107 Carbon Dioxide 25.0 Anion Gap 7 BUN 18 Creatinine 1.09 Estim Creat Clear Calc 65.63 Est GFR (MDRD) Af Amer 91 Est GFR (MDRD) Non-Af 75 BUN/Creatinine Ratio 16.5 Glucose 183 H Hemoglobin A1c 6.1 H Calcium 8.6 - Other Studies Radiology: [] reviewed Other Studies: [] Route of nutrition/ use of supplements: [] Nutritional Intake: [] IV Site: [] Arizmendi Catheter: [] - Physical Exam General: Alert, Cooperative, No apparent distress HEENT: Atraumatic, PERRLA, EOMI Neck: Supple, No Nodes Lungs: Clear to auscultation, Normal air movement Cardiovascular: Regular rate, Regular Rhythm Abdomen: Soft, Non Tender, Non-Distended, - - suprapubic cath with no redness or drainage Extremities: No edema Skin: No rashes IV Site: Peripheral, without redness Musculoskeletal: No Tenderness to Palpation of Joints or Extremities Neurological: Cranial nerves II-XII grossly intact - Assessment/Plan Antibiotics: [] Assessment/Plan: [] comp uti with suprapubic cath in place - recurrent uti. Ucx with pseudomonas- like, providencia, and GPC. Much improved on cefepime. Limited oral options, overall asymptomatic now, ok for d/c on short course of cipro, will follow final cx results. Stool pcr also with yersinia, will be covered by cipro. Thank you, d/w Dr. Duron
== END 2020-05-03 15:13 | disposition skilled nursing facility (03) | DRG 698 ==
LOC: ED 23:27 → PCU 05-01 02:01
PROVIDERS: Student in an Organized Health Care Education/Training Program; Admitting Provider Family Medicine; Emergency Provider Emergency Medicine; PCP Family Medicine; Visit Provider Internal Medicine
DX: T83.510A Infection and inflammatory reaction due to cystostomy catheter, initial encounter (principal); A41.59 Other Gram-negative sepsis; N39.0 Urinary tract infection, site not specified; A05.8 Other specified bacterial foodborne intoxications; T83.090A Other mechanical complication of cystostomy catheter, initial encounter; Y84.6 Urinary catheterization as the cause of abnormal reaction of the patient, or of later complication, without mention of misadventure at the time of the procedure; Y92.9 Unspecified place or not applicable; G35 Multiple sclerosis; N31.9 Neuromuscular dysfunction of bladder, unspecified; E10.649 Type 1 diabetes mellitus with hypoglycemia without coma; I12.9 Hypertensive chronic kidney disease with stage 1 through stage 4 chronic kidney disease, or unspecified chronic kidney disease; N18.30 Chronic kidney disease, stage 3 unspecified; E10.22 Type 1 diabetes mellitus with diabetic chronic kidney disease; E10.65 Type 1 diabetes mellitus with hyperglycemia; E86.0 Dehydration; E87.6 Hypokalemia; E78.5 Hyperlipidemia, unspecified; K21.9 Gastro-esophageal reflux disease without esophagitis; F03.90 Unspecified dementia, unspecified severity, without behavioral disturbance, psychotic disturbance, mood disturbance, and anxiety; F32.9 Major depressive disorder, single episode, unspecified; F41.9 Anxiety disorder, unspecified; Z74.01 Bed confinement status; Z79.4 Long term (current) use of insulin; Z79.899 Other long term (current) drug therapy; Z87.440 Personal history of urinary (tract) infections
CPT/HCPCS: 36415; 71045; 80048; 80053; 81001; 82962; 83036; 83605; 83735; 84484; 85025; 85610; 85730; 87040; 87077; 87086; 87088; 87186; 87493; 87506; 87635; 93005; 97116; 97161; 97166; 97530; 99285; J7030; J7050; A4216; U0003